=== PATIENT | male | born 1950 | race African-American/Black ===

== ENCOUNTER 2019-05-15 07:09 | Inpatient (IN) | payer OTHER ==
[2019-05-14 09:28] VITALS: BMI 32.1
[2019-05-15] MEDS ORDERED: MIDAZOLAM HCL 2 MG/2 ML SINGLE DOSE VIAL ONE (08:58)
[2019-05-15] MEDS ORDERED: PROPOFOL 20 ML ONE (08:58)
[2019-05-15] MEDS ORDERED: fentaNYL CITRATE 250 MCG/5 ML VIAL ONE (08:58)
[2019-05-15] MEDS ORDERED: ROCURONIUM BROMIDE 50 MG/5 ML SYRINGE ONE ×2 (08:58→10:17)
--- NOTE | 2019-05-15 09:19 | HP ---
History & Physical Update - History History: No Change - Physical Physical: No Change - Assessment Assessment: No Change - Plan Plan: No Change (Consent obtained for laparoscopic assisted right hemicolectomy , for colonic tumoir in ascending colon. Procedure was explained , laparoscopic . possible open , with risks, benefits and complications, including , bleeding , infection , dehiscence of the anastamosis, etc.)
[2019-05-15] MEDS ORDERED: ceFAZolin SODIUM 1 GM VIAL IVPB ONE (09:36)
[2019-05-15] MEDS ORDERED: BUPIVACAINE HCL/PF 0.5% (5 MG/ML) 30 ML VIAL IJ ONE ×3 (09:39→12:57)
[2019-05-15] MEDS ORDERED: BENZOIN TINCTURE SWABSTICK TP ONE (13:03)
[2019-05-15] MEDS ORDERED: NEOSTIGMINE METHYLSULFATE 0.5 MG/1 ML - 10 ML MDV ONE (13:12)
--- NOTE | 2019-05-15 13:29 | OP ---
Operative Note - Note: Operative Date: 05/15/19 Pre-Operative Diagnosis: Tumor in ascending colon. Operation: Laparoscopic assisted right hemicolectomy. Findings: Inked area in ascending colon. Post-Operative Diagnosis: Same as Pre-op Surgeon: Edmund Kilpatrick Anesthesia: General Specimens Removed: Right hemicolectomy, ( removal of terminal ilium , cecum , ascending colon, hepatic flexure , and proximal transverse colon).. Estimated Blood Loss (mls): 10 Operative Report Dictated: Yes
[2019-05-15] MEDS ORDERED: D5-1/3NS+20 MEQ KCL - 20 MEQ/1,000 ML INFUS.BAG IV SCH (13:30)
[2019-05-15] MEDS ORDERED: HYDROmorphone *PCA* 10MG/50ML DISP.SYRIN PCA SCH (13:30)
[2019-05-15] MEDS ORDERED: hydrALAZINE HCL 20 MG/ML VIAL ONE (14:16)
[2019-05-15] MEDS ORDERED: ACETAMINOPHEN INJECTION 100 ML IVPB ONE (14:21)
[2019-05-15] MEDS ORDERED: ONDANSETRON 4 MG/2 ML VIAL IVPUSH PRN (14:24)
[2019-05-15] MEDS ORDERED: LACTATED RINGERS SOLUTION 1,000 ML IV SCH (14:30)
[2019-05-15] MEDS: ACETAMINOPHEN 1000 MG/100 ML VIAL (NON FORMULARY) IVPB ONE (14:42)
[2019-05-15] MEDS: DEXTROSE 5%-1/3 NS - 500 ML with POTASSIUM CHLORIDE 10 MEQ IV SCH ×2 (15:00→23:42)
[2019-05-15] MEDS: HYDROmorphone *PCA* 10MG/50ML DISP.SYRIN PCA SCH (15:25)
[2019-05-15] MEDS ORDERED: 1/3 NS IV SCH (17:15)
[2019-05-15] MEDS ORDERED: 1/3 NORMAL SALINE IVPB SCH (17:15)
[2019-05-15] MEDS ORDERED: POTASSIUM CHLORIDE IV SCH ×2 (17:15)
[2019-05-15] MEDS ORDERED: 1/3 NORMAL SALINE IV SCH (17:15)
[2019-05-15] MEDS ORDERED: POTASSIUM CHLORIDE IVPB SCH (17:15)
[2019-05-15] MEDS ORDERED: DEXTROSE 5% IVPB SCH (17:15)
[2019-05-15] MEDS ORDERED: DEXTROSE 5% IV SCH ×2 (17:15)
[2019-05-15 18:28] LABS: HEMATOCRIT 42.8 % (35.4-49); HEMOGLOBIN 13.6 GM/dL (11.7-16.9); MCH 27.5 pg (25.7-33.7); MCHC 31.8 g/dl (32.0-35.9); MEAN CELL VOLUME 86.4 fl (80-96); MEAN PLT VOLUME 8.7 fl (7.5-11.1); PLATELET COUNT 194 K/MM3 (134-434); RBC 4.95 M/mm3 (4.00-5.60); RDW 14.1 % (11.9-15.9); WHITE BLOOD COUNT 16.8 K/mm3 (4.0-10.0)
[2019-05-15] MEDS ORDERED: ONDANSETRON 4 MG/2 ML VIAL ONE (19:22)
--- NOTE | 2019-05-15 23:03 | OP ---
DATE OF OPERATION: 05/15/2019 PREOPERATIVE DIAGNOSIS: Tumor in the ascending colon. Biopsy suggests adenoma. POSTOPERATIVE DIAGNOSIS: Tumor in the ascending colon. Biopsy suggests adenoma. OPERATIVE PROCEDURE: Laparoscopic-assisted right hemicolectomy (removal of terminal ileum, cecum, ascending colon, hepatic flexure, and proximal 1/3 of the transverse colon). SURGEON: Jagdish Kilpatrick MD CONSTRUCTION ADMINISTRATIVE ASSISTANT: PATRICIA Hughes ANESTHESIA: General anesthesia. OPERATIVE DESCRIPTION: This 68-year-old man who had a screening colonoscopy, which showed a large lesion in the ascending colon suspicious for malignancy; however, biopsy showed an adenoma. The area was inked. Patient had a bowel prep. Procedure was explained to the procedure. Consent obtained. Risks, benefits, and alternatives extensively discussed with the patient. Patient was given general anesthesia, placed in the lithotomy position. The abdomen and upper thigh were painted and draped. Time-out was called. He was given antibiotics preoperatively. Incision was made in the supraumbilical region for about 2 cm, which was deepened inside the skin, subcutaneous tissue, linea alba, and the peritoneum. Two stay sutures of 2-0 Vicryl were obtained, these were in the midline to hold the 10- to 12-mm Bisi trocar into the abdominal wall. After introducing the 10- to 12-mm trocar, the abdomen was insufflated with carbon dioxide at 6 L per minute with a maximum intra-abdominal pressure of 15 mmHg. A 5-mm 30-degree camera was introduced into the abdominal cavity. There were no adhesions in the abdominal cavity. Another 10-mm trocar was inserted in the midline about 3-4 fingerbreadths above the 1st trocar. This was noted in the abdominal cavity under direct vision of the camera. Two 5-mm trocars were then inserted, 1 in the suprapubic area in the midline, another in the right lower quadrant of the abdomen. These were also noted entering the abdominal cavity with the camera. Upon exploring the abdominal cavity, the liver was normal, the gallbladder was normal. There was ink noted in the ascending colon suggesting the location of the tumor. Once this was done, 2 laparoscopic [place] instruments were introduced through the 10-mm port. The cecum was grasped with 1 and the ascending colon with the other, and this was retracted anteriorly and towards the left, thus visualizing the lateral peritoneal deflection of the cecum and the ascending colon. With the camera through the 5-mm port and the 5-mm LigaSure through the other 5-mm port, the lateral peritoneal reflection of the ascending colon was incised around the cecum, terminal ileum, ascending colon, and the hepatic flexure. As this was incised, the right colon was mobilized medially and towards the left. This was done all the way towards the hepatic flexure wherein the 1/3 portion of the duodenum was visualized. The right colon was adequately mobilized, and it was moved all the way to the left of the midline. Then the transverse colon divided in the midline was held towards the anterior abdominal wall using the [place] instrument again. The omentum was then divided at the junction of the medial 1/3 and the middle 1/3 of the transverse colon, all the way from the periphery to the edge of the colon, again using the LigaSure. Once this was completed, the peritoneum medial to the colon, namely the mesentery of the terminal ileum, the cecum, ascending colon, the proximal transverse colon was divided again using the LigaSure, thus demarcating the line of resection. The blood vessels were also mobilized. When this was done, there was adequate mobility to bring the mobilized specimen through the abdomen to the exterior. The supraumbilical incision was then extended to about 4-5 cm, and the terminal ileum, cecum, ascending colon, hepatic flexure, and the transverse colon were exteriorized through the wound including the mesentery. The right flange of the middle colic was then divided at its origin using 2-0 silk sutures. The middle colic vein was also divided at its incision between 2-0 silk LigaSures. The right colic and the terminal branch of the ileocolic was also divided between silk sutures. Once this was done, the terminal ileum was divided for 6-7 cm proximal to the ileocecal valve using the 18-mm BEAU stapling device. Similarly, the transverse colon was also divided between the branches of the mesocolic using the 18-mm BEAU stapling device. Specimen was then removed and sent to Pathology. The terminal ileum was then anastomosed to the distal transverse colon, distal to the hoang in a [id number]-[id number] fashion using again the BEAU stapling device after opening the antimesenteric side of the hoang used to close the resection. Two 3-0 silk sutures were obtained on the antimesenteric side of the small intestine, as well as around the tinea of the transverse colon about 8 cm away from the hoang, to approximate the 2 segments of the bowel for anastomosis. When they were brought together, a BEAU stapling device was introduced through both terminal ileum and the transverse colon around the antimesenteric side and the anastomosis performed using BEAU stapling device. The anastomosis was adequate. The opening of the terminal ileum and the transverse colon was again closed using a new BEAU stapling device. The anastomosis was adequate. The blood supply of the bowel at the site of the anastomosis was also intact. There was active bleeding, and the bowel color was normal. The mesentery of the 2 segments of the bowel had been approximated with continuous 3-0 silk sutures, 3-0 silk sutures were obtained using 0 monofilament sutures of the terminal ileum and the transverse colon to prevent any tension around the staple line. The right hemicolectomy was, thus, completed. The anastomosis was wide, adequate, and of good blood supply. There was to the mesentery. The total estimated blood loss was less than 10 mL. The bowel was then extended to the abdominal cavity, and the abdomen closed with continuous No. 2 looped PDS sutures. The abdomen was then again inflated with carbon dioxide, leaving the 5-mm port in the supraumbilical region as well as the right lower quadrant 5-mm port. The bowel was normal. There was no twist and no adhesions to the anterior abdominal wall. The omentum was then pulled back and placed over the small intestine against the abdominal wall. The instruments were removed under direct vision, and the 5-mm ports were then closed buried, interrupted 4-0 Biosyn sutures. The subcutaneous tissue of the abdominal incision was also approximated with buried, interrupted 4-0 Biosyn sutures. Dermabond and 5-mm adhesive was placed across the incision. Patient tolerated the procedure well, was extubated, and sent to the recovery room in satisfactory and stable condition. Small dressing was placed over the 10-mm port. Alexandru [id number] cc: Laureen Olea MD
[2019-05-16] MEDS: DEXTROSE 5%-1/3 NS - 500 ML with POTASSIUM CHLORIDE 10 MEQ IV SCH ×2 (06:42→11:04)
[2019-05-16] MEDS: ACETAMINOPHEN 1000 MG/100 ML VIAL (NON FORMULARY) IVPB ONE (08:29)
[2019-05-16 08:34] LABS: BASO % 0.3 % (0-2.0); EOS % 0.4 % (0-4.5); HEMATOCRIT 37.9 % (35.4-49); HEMOGLOBIN 12.3 GM/dL (11.7-16.9); LYMPH % 8.9 % (8-40); MCH 27.6 pg (25.7-33.7); MCHC 32.3 g/dl (32.0-35.9); MEAN CELL VOLUME 85.4 fl (80-96); MEAN PLT VOLUME 8.8 fl (7.5-11.1); MONO % 11.2 % (3.8-10.2); NEUT % 79.2 % (42.8-82.8); PLATELET COUNT 170 K/MM3 (134-434); RBC 4.44 M/mm3 (4.00-5.60); WHITE BLOOD COUNT 13.4 K/mm3 (4.0-10.0)
[2019-05-16 09:18] LABS: BLOOD UREA NITROGEN 18.1 mg/dL (7-18); CALCIUM 9.9 mg/dL (8.5-10.1); CREATININE 1.3 mg/dL (0.55-1.3); POTASSIUM 4.7 mmol/L (3.5-5.1)
--- NOTE | 2019-05-16 11:26 | CONSULT ---
Consult Consult Specialty:: INTERNAL MEDICINE Reason for Consultation:: Hypertension - History of Present Illness Chief Complaint: colon mass History of Present Illness: 68 yrs old male with PMH of HTN , prediabetes, paroxysmal Afib, BPH, arthritis, hyperlipidemia, hypothyroidism found to have ascending colon mass - 6 cm , biopsy showed adenoma. He underwent right hemicolectomy yesterday be Dr Kilpatrick. Pt feels well. POD #1 No bm , no flatus,no abd pain -- pain controlled by WIRE BRUSHER pump No SOB - History Source History Provided By: Patient Limitations to Obtaining History: No Limitations - Past Medical History Cardio/Vascular: Yes: AFIB (paroxysmal not on AC ), HTN, Hyperlipdemia Renal/: Yes: BPH - Past Surgical History Past Surgical History: Yes: Cataract Removal, TURP - Alcohol/Substance Use Hx Alcohol Use: No - Smoking History Smoking history: Never smoked Have you smoked in the past 12 months: No Home Medications - Allergies Allergies/Adverse Reactions: Allergies Allergy/AdvReac Type Severity Reaction Status Date / Time No Known Drug Allergies Allergy Verified 05/15/19 08:16 - Home Medications Home Medications: Ambulatory Orders Amlodipine Besylate [Norvasc -] 10 mg PO DAILY 10/06/12 Levothyroxine [Synthroid -] 125 mcg PO DAILY 10/06/12 Metoprolol Succinate [Toprol XL -] 50 mg PO DAILY 10/06/12 Hydrochlorothiazide [Hctz -] 25 mg PO DAILY 05/14/19 Losartan Potassium 100 mg PO DAILY 05/15/19 Review of Systems - Review of Systems Constitutional: denies: Chills, Fever Cardiovascular: denies: Chest Pain Respiratory: denies: Cough, SOB, Wheezing Gastrointestinal: denies: Abdominal Pain, Diarrhea, Indigestion, Nausea Physical Exam Vital Signs: Vital Signs Temperature 98.2 F 05/16/19 09:59 Pulse Rate 69 05/16/19 09:59 Respiratory Rate 20 05/16/19 09:59 Blood Pressure 130/61 05/16/19 09:59 O2 Sat by Pulse Oximetry (%) 98 05/16/19 00:25 Constitutional: Yes: No Distress, Calm Cardiovascular: Yes: Regular Rate and Rhythm. No: JVD Respiratory: Yes: Other (fine crackles left >right) Gastrointestinal: Yes: Soft, Abdomen, Obese, Other (dressing +). No: Normal Bowel Sounds, Tenderness Edema: No Neurological: Yes: WNL Psychiatric: Yes: Alert, Oriented Labs: CBC, BMP 05/16/19 07:33 05/16/19 08:00 Imaging - Results X-ray: Report Reviewed EKG: Report Reviewed, Image Reviewed (pre op EKG) Problem List - Problems (1) Colonic mass Code(s): K63.89 - OTHER SPECIFIED DISEASES OF INTESTINE (2) Status post right hemicolectomy Code(s): Z90.49 - ACQUIRED ABSENCE OF OTHER SPECIFIED PARTS OF DIGESTIVE TRACT (3) HTN (hypertension) Code(s): I10 - ESSENTIAL (PRIMARY) HYPERTENSION (4) Hypothyroidism Code(s): E03.9 - HYPOTHYROIDISM, UNSPECIFIED (5) Hyperlipidemia Code(s): E78.5 - HYPERLIPIDEMIA, UNSPECIFIED Assessment/Plan PLAN will decrease iv fluids -->crackles on exam--> check CXR OOB daily Pain control Keep NPO restart HTN meds with sips of water WBC decreased follow up on biopsy Heparin sc for DVT prophylaxis discussed with Dr Kilpatrick
[2019-05-16] MEDS ORDERED: DEXTROSE 5%-1/3 NS - 500 ML with POTASSIUM CHLORIDE 10 MEQ IV SCH (11:35)
--- NOTE | 2019-05-16 11:35 | PN ---
Progress Note, Physician - Current Medication List Current Medications: Active Medications Diphenhydramine HCl (Benadryl Injection -) 12.5 mg IVPUSH ONCE PRN PRN Reason: FOR ITCHING Fentanyl (Sublimaze Injection -) 50 mcg IVPUSH [id number] PRN PRN Reason: PAIN-PACU ORDER X 4 DOSES ONLY Last Admin: 05/15/19 14:40 Dose: 50 mcg Hydromorphone HCl (Hydromorphone 10 Mg/50 Ml-Ns) 10 mg FIXED WING PILOT FIXED WING PILOT DOLORES; Protocol Stop: 05/22/19 14:59 Last Admin: 05/15/19 15:25 Dose: 10 mg Potassium Chloride 10 meq/ (Dextrose/Sodium Chloride) 505 mls @ 83 mls/hr IV Q6H [facility] Last Admin: 05/16/19 11:04 Dose: Not Given Ondansetron HCl (Zofran Injection) 4 mg IVPUSH Q6H PRN PRN Reason: NAUSEA AND/OR VOMITING Ondansetron HCl (Zofran Injection) 4 mg IVPUSH Q4H PRN PRN Reason: NAUSEA AND/OR VOMITING Promethazine HCl (Phenergan Injection -) 12.5 mg IVPB Q6H PRN PRN Reason: NAUSEA AND/OR VOMITING - Objective Vital Signs: Vital Signs Temperature 98.2 F 05/16/19 09:59 Pulse Rate 69 05/16/19 09:59 Respiratory Rate 20 05/16/19 09:59 Blood Pressure 130/61 05/16/19 09:59 O2 Sat by Pulse Oximetry (%) 98 05/16/19 00:25 Labs: CBC, BMP 05/16/19 07:33 05/16/19 08:00 Assessment/Plan PO day #1 He is alert and oriented. He is informed of the surgical procedure and gross findings on the ascending colon. Final pathology after histology. Abdomen is soft, not tender. Extremities: No calf tenderness. DVT prohylaxis. Out of bed , ambulating.
[2019-05-16] MEDS: HEPARIN NA (PORCINE) 5,000 UNITS/ML 1ML VIAL SQ SCH ×2 (12:05→21:47)
[2019-05-16] MEDS: D5-1/2NS+20 MEQ KCL - 20 MEQ/1,000 ML INFUS.BAG IV SCH (12:05)
[2019-05-16] MEDS: HYDROmorphone *PCA* 10MG/50ML DISP.SYRIN PCA SCH (15:49)
--- NOTE | 2019-05-17 09:09 | PN ---
Progress Note (short form) - Note Progress Note: had low grade fever today no distress no bm or flatus no nausea Vital Signs - 24 hr 05/16/19 05/17/19 05/17/19 20:46 06:00 08:30 Temperature 99.0 F 100.1 F H 100.6 F H Pulse Rate 71 80 86 Respiratory 20 20 20 Rate Blood Pressure 141/72 136/70 143/83 O2 Sat by Pulse Oximetry (%) 05/17/19 05/17/19 05/17/19 09:00 10:00 10:54 Temperature 99.7 F H Pulse Rate 100 H Respiratory 20 Rate Blood Pressure 143/83 O2 Sat by Pulse 99 99 Oximetry (%) 05/17/19 14:00 Temperature 98.9 F Pulse Rate 82 Respiratory 20 Rate Blood Pressure 131/77 O2 Sat by Pulse 99 Oximetry (%) Current Medications Generic Name Dose Route Start Last Admin Trade Name Freq PRN Reason Stop Dose Admin Acetaminophen 1,000 mg 05/17/19 09:08 05/17/19 09:29 Ofirmev Injection - IVPB 1,000 mg Q6H PRN Administration PAIN LEVEL 6-10 OR FEVER Diphenhydramine HCl 12.5 mg 05/15/19 14:58 Benadryl Injection - IVPUSH ONCE PRN FOR ITCHING Fentanyl 50 mcg 05/15/19 14:24 05/15/19 14:40 Sublimaze Injection - IVPUSH 50 mcg [id number] PRN Administration PAIN-PACU ORDER X 4 DOSES ONLY Heparin Sodium (Porcine) 5,000 unit 05/16/19 11:45 05/17/19 09:28 Heparin - SQ 5,000 unit BID DOLORES Administration Hydromorphone HCl 10 mg 05/15/19 15:00 05/17/19 16:09 Hydromorphone 10 Mg/50 Ml-Ns WASH OIL COOLER OPERATOR 05/22/19 14:59 10 mg WASH OIL COOLER OPERATOR DOLORES Administration Protocol Potassium Chloride/Dextrose/Sod Cl 20 meq in 1,000 mls @ 60 mls/hr 05/16/19 11 :45 05/17/19 12:30 D5-1/2ns+20 Meq Kcl - IV Not Given ASDIR DOLORES Levothyroxine Sodium 125 mcg 05/17/19 09:15 05/17/19 09:31 Synthroid - PO 125 mcg DAILY@0700 [facility] Administration Metoprolol Succinate 50 mg 05/17/19 10:00 05/17/19 09:28 Toprol Xl - PO 50 mg DAILY [facility] Administration Ondansetron HCl 4 mg 05/15/19 14:24 Zofran Injection IVPUSH Q6H PRN NAUSEA AND/OR VOMITING Ondansetron HCl 4 mg 05/15/19 14:58 Zofran Injection IVPUSH Q4H PRN NAUSEA AND/OR VOMITING Promethazine HCl 12.5 mg 05/15/19 14:58 Phenergan Injection - IVPB Q6H PRN NAUSEA AND/OR VOMITING Laboratory Results - last 24 hr 05/17/19 05/17/19 05/17/19 10:47 10:47 11:40 WBC 10.9 H RBC 4.31 Hgb 12.0 Hct 36.6 MCV 84.8 MCH 27.8 MCHC 32.9 RDW 14.0 Plt Count 163 MPV 9.2 Absolute Neuts (auto) 8.6 H Neutrophils % 78.9 Lymphocytes % 6.6 L D Monocytes % 13.7 H Eosinophils % 0.3 Basophils % 0.5 Nucleated RBC % 0 Sodium 140 Potassium 4.3 Chloride 104 Carbon Dioxide 30 Anion Gap 6 L BUN 14.5 Creatinine 1.2 Est GFR (CKD-EPI)AfAm 72.09 Est GFR (CKD-EPI)NonAf 62.20 Random Glucose 85 Calcium 9.6 Total Bilirubin 0.8 AST 23 ALT 16 Alkaline Phosphatase 87 Total Protein 6.7 Albumin 3.0 L Urine Color [place] Urine Appearance Clear Urine pH 5.0 Ur Specific [place] 1.025 Urine Protein 1+ H Urine Glucose (UA) Negative Urine Ketones 1+ H Urine Blood Negative Urine Nitrite Negative Urine Bilirubin Negative Urine Urobilinogen 0.2 Ur Leukocyte Esterase Negative Urine WBC (Auto) 1 Urine Casts (Auto) 6 U Epithel Cells (Auto) 1.0 Urine Bacteria (Auto) 0.3 S1 S2 RRR Lungs decreased crackles ABd- soft, NT, ND, No BS No edema PLANkeep NPO IV fluids CXR -- no infiltrates CBC --wbc trending down -- labs noted check cultures received post op antibiotics will monitor fever for now, if worse, restart antibiotics Problem List - Problems (1) Colonic mass Code(s): K63.89 - OTHER SPECIFIED DISEASES OF INTESTINE (2) Status post right hemicolectomy Code(s): Z90.49 - ACQUIRED ABSENCE OF OTHER SPECIFIED PARTS OF DIGESTIVE TRACT (3) HTN (hypertension) Code(s): I10 - ESSENTIAL (PRIMARY) HYPERTENSION (4) Hypothyroidism Code(s): E03.9 - HYPOTHYROIDISM, UNSPECIFIED (5) Hyperlipidemia Code(s): E78.5 - HYPERLIPIDEMIA, UNSPECIFIED
[2019-05-17] MEDS: HEPARIN NA (PORCINE) 5,000 UNITS/ML 1ML VIAL SQ SCH ×2 (09:28→21:28)
[2019-05-17] MEDS: ACETAMINOPHEN 1000 MG/100 ML VIAL (NON FORMULARY) IVPB PRN ×2 (09:29→20:13)
[2019-05-17] MEDS: LEVOTHYROXINE NA 125 MCG TABLET (FP) PO SCH (09:31)
[2019-05-17 11:53] LABS: BASO % 0.5 % (0-2.0); EOS % 0.3 % (0-4.5); HEMATOCRIT 36.6 % (35.4-49); LYMPH % 6.6 % (8-40); MCH 27.8 pg (25.7-33.7); MCHC 32.9 g/dl (32.0-35.9); MEAN CELL VOLUME 84.8 fl (80-96); MEAN PLT VOLUME 9.2 fl (7.5-11.1); MONO % 13.7 % (3.8-10.2); NEUT % 78.9 % (42.8-82.8); PLATELET COUNT 163 K/MM3 (134-434); RBC 4.31 M/mm3 (4.00-5.60); WHITE BLOOD COUNT 10.9 K/mm3 (4.0-10.0)
[2019-05-17 12:10] LABS: BILIRUBIN,TOTAL 0.8 mg/dL (0.2-1); BLOOD UREA NITROGEN 14.5 mg/dL (7-18); CALCIUM 9.6 mg/dL (8.5-10.1); CREATININE 1.2 mg/dL (0.55-1.3); POTASSIUM 4.3 mmol/L (3.5-5.1); TOT PROT 6.7 g/dl (6.4-8.2)
[2019-05-17 12:12] LABS: HYALINE CASTS 6 /lpf (0-8); URINE APPEARANCE CLEAR; URINE BACTERIA 0.3 /hpf (NEGATIVE); URINE BILIRUBIN NEGATIVE (NEGATIVE); URINE COLOR ORANGE; URINE GLUCOSE (UA) NEGATIVE (NEGATIVE); URINE KETONE 1+ (NEGATIVE); URINE LEUK ESTERASE NEGATIVE (NEGATIVE); URINE NITRITE NEGATIVE (NEGATIVE); URINE PROTEIN 1+ (NEGATIVE); URINE UROBILINOGEN 0.2 mg/dL (0.2-1.0); URINE WBC 1 /hpf (0-5)
[2019-05-17] MEDS: D5-1/2NS+20 MEQ KCL - 20 MEQ/1,000 ML INFUS.BAG IV SCH ×2 (12:30→18:28)
--- NOTE | 2019-05-17 15:57 | PN ---
Progress Note, Physician - Current Medication List Current Medications: Active Medications Acetaminophen (Ofirmev Injection -) 1,000 mg IVPB Q6H PRN PRN Reason: PAIN LEVEL 6-10 OR FEVER Last Admin: 05/17/19 09:29 Dose: 1,000 mg Diphenhydramine HCl (Benadryl Injection -) 12.5 mg IVPUSH ONCE PRN PRN Reason: FOR ITCHING Fentanyl (Sublimaze Injection -) 50 mcg IVPUSH [id number] PRN PRN Reason: PAIN-PACU ORDER X 4 DOSES ONLY Last Admin: 05/15/19 14:40 Dose: 50 mcg Heparin Sodium (Porcine) (Heparin -) 5,000 unit SQ BID [facility] Last Admin: 05/17/19 09:28 Dose: 5,000 unit Hydromorphone HCl (Hydromorphone 10 Mg/50 Ml-Ns) 10 mg SCHOOL INSPECTOR SCHOOL INSPECTOR [facility]; Protocol Stop: 05/22/19 14:59 Last Admin: 05/16/19 15:49 Dose: 10 mg Potassium Chloride/Dextrose/Sod Cl (D5-1/2ns+20 Meq Kcl -) 20 meq in 1,000 mls @ 60 mls/hr IV ASDIR [facility] Last Admin: 05/16/19 12:05 Dose: 60 mls/hr Levothyroxine Sodium (Synthroid -) 125 mcg PO DAILY@0700 [facility] Last Admin: 05/17/19 09:31 Dose: 125 mcg Metoprolol Succinate (Toprol Xl -) 50 mg PO DAILY [facility] Last Admin: 05/17/19 09:28 Dose: 50 mg Ondansetron HCl (Zofran Injection) 4 mg IVPUSH Q6H PRN PRN Reason: NAUSEA AND/OR VOMITING Ondansetron HCl (Zofran Injection) 4 mg IVPUSH Q4H PRN PRN Reason: NAUSEA AND/OR VOMITING Promethazine HCl (Phenergan Injection -) 12.5 mg IVPB Q6H PRN PRN Reason: NAUSEA AND/OR VOMITING - Objective Vital Signs: Vital Signs Temperature 98.9 F 05/17/19 14:00 Pulse Rate 82 05/17/19 14:00 Respiratory Rate 20 05/17/19 14:00 Blood Pressure 131/77 05/17/19 14:00 O2 Sat by Pulse Oximetry (%) 99 05/17/19 09:00 Labs: CBC, BMP 05/17/19 10:47 05/17/19 10:47 Assessment/Plan Surgery: Post op Day #2. Had low grade temp, 100.4. Abdomen is soft, WBC is normal. Normal chest X-ray. Continue current management, keep NPO. Ambulate.
[2019-05-17] MEDS: HYDROmorphone *PCA* 10MG/50ML DISP.SYRIN PCA SCH (16:09)
[2019-05-17] MEDS: ONDANSETRON 4 MG/2 ML VIAL IVPUSH PRN ×2 (18:32→23:43)
[2019-05-18] MEDS: ONDANSETRON 4 MG/2 ML VIAL IVPUSH PRN (06:23)
[2019-05-18] MEDS: LEVOTHYROXINE NA 125 MCG TABLET (FP) PO SCH (06:23)
--- NOTE | 2019-05-18 09:56 | PN ---
Progress Note (short form) - Note Progress Note: pt seen/ examined chart reviewed awake/comfortable wants to eat pain ok low grade fever Vital Signs Temp 99.7 F H 05/18/19 06:00 Pulse 80 05/18/19 08:09 Resp 20 05/18/19 08:09 BP 125/70 05/18/19 08:09 Pulse Ox 98 05/17/19 21:00 Intake & Output 05/17/19 05/17/19 05/18/19 11:59 23:59 11:59 Intake Total 900 1020 520 Output Total 520 800 400 Balance 380 220 120 Intake: IV 900 1020 420 D5-1/2NS+20 MEQ KCL - 20 900 1020 420 meq In 1,000 ml @ 60 mls/ hr IV ASDIR DOLORES Rx#: [id number] IVPB 100 Output: Urine 520 800 400 Void 520 800 400 Other: Voiding Method Urinal Urinal Bowel Movement No Active Medications Acetaminophen (Ofirmev Injection -) 1,000 mg IVPB Q6H PRN PRN Reason: PAIN LEVEL 6-10 OR FEVER Last Admin: 05/17/19 20:13 Dose: 1,000 mg Diphenhydramine HCl (Benadryl Injection -) 12.5 mg IVPUSH ONCE PRN PRN Reason: FOR ITCHING Fentanyl (Sublimaze Injection -) 50 mcg IVPUSH [id number] PRN PRN Reason: PAIN-PACU ORDER X 4 DOSES ONLY Last Admin: 05/15/19 14:40 Dose: 50 mcg Heparin Sodium (Porcine) (Heparin -) 5,000 unit SQ BID [facility] Last Admin: 05/17/19 21:28 Dose: 5,000 unit Hydromorphone HCl (Hydromorphone 10 Mg/50 Ml-Ns) 10 mg FINANCIAL CONSULTANT FINANCIAL CONSULTANT [facility]; Protocol Stop: 05/22/19 14:59 Last Admin: 05/17/19 16:09 Dose: 10 mg Potassium Chloride/Dextrose/Sod Cl (D5-1/2ns+20 Meq Kcl -) 20 meq in 1,000 mls @ 60 mls/hr IV ASDIR DOLORES Last Admin: 05/17/19 18:28 Dose: 60 mls/hr Levothyroxine Sodium (Synthroid -) 125 mcg PO DAILY@0700 [facility] Last Admin: 05/18/19 06:23 Dose: 125 mcg Metoprolol Succinate (Toprol Xl -) 50 mg PO DAILY [facility] Last Admin: 05/17/19 09:28 Dose: 50 mg Ondansetron HCl (Zofran Injection) 4 mg IVPUSH Q6H PRN PRN Reason: NAUSEA AND/OR VOMITING Ondansetron HCl (Zofran Injection) 4 mg IVPUSH Q4H PRN PRN Reason: NAUSEA AND/OR VOMITING Last Admin: 05/18/19 06:23 Dose: 4 mg Promethazine HCl (Phenergan Injection -) 12.5 mg IVPB Q6H PRN PRN Reason: NAUSEA AND/OR VOMITING CBC, BMP 05/17/19 10:47 05/17/19 10:47 Labs - today-- Ordered Physical Exam S1 S2 RRR Lungs decreased crackles ABd- soft, quiet No edema PLAN keep NPO till surgery clears IV fluids post op fever-monitor -- labs -- ordered --cultures--- -ve so far received post op antibiotics will monitor fever for now, if worse, restart antibiotics will follow oob - chair not passing gas yet-- Problem List - Problems (1) Colonic mass Code(s): K63.89 - OTHER SPECIFIED DISEASES OF INTESTINE (2) Status post right hemicolectomy Code(s): Z90.49 - ACQUIRED ABSENCE OF OTHER SPECIFIED PARTS OF DIGESTIVE TRACT (3) HTN (hypertension) Code(s): I10 - ESSENTIAL (PRIMARY) HYPERTENSION (4) Hypothyroidism Code(s): E03.9 - HYPOTHYROIDISM, UNSPECIFIED (5) Hyperlipidemia Code(s): E78.5 - HYPERLIPIDEMIA, UNSPECIFIED
[2019-05-18] MEDS ORDERED: HYDROmorphone HCl 2 MG/ML VIAL IM PRN (10:56)
--- NOTE | 2019-05-18 10:56 | PN ---
Progress Note, Physician Chief Complaint: C/O Vomiting twice small amount of greenish material. Denies any nausea. Denies any abdominal pain, discomfort. Abdomen is soft , not tender. Has not passed flatus. Wound is clean - Current Medication List Current Medications: Active Medications Acetaminophen (Ofirmev Injection -) 1,000 mg IVPB Q6H PRN PRN Reason: PAIN LEVEL 6-10 OR FEVER Last Admin: 05/17/19 20:13 Dose: 1,000 mg Diphenhydramine HCl (Benadryl Injection -) 12.5 mg IVPUSH ONCE PRN PRN Reason: FOR ITCHING Fentanyl (Sublimaze Injection -) 50 mcg IVPUSH [id number] PRN PRN Reason: PAIN-PACU ORDER X 4 DOSES ONLY Last Admin: 05/15/19 14:40 Dose: 50 mcg Heparin Sodium (Porcine) (Heparin -) 5,000 unit SQ BID [facility] Last Admin: 05/17/19 21:28 Dose: 5,000 unit Hydromorphone HCl (Hydromorphone 10 Mg/50 Ml-Ns) 10 mg DEICER INSPECTOR PNEUMATIC DEICER INSPECTOR PNEUMATIC [facility]; Protocol Stop: 05/22/19 14:59 Last Admin: 05/17/19 16:09 Dose: 10 mg Potassium Chloride/Dextrose/Sod Cl (D5-1/2ns+20 Meq Kcl -) 20 meq in 1,000 mls @ 60 mls/hr IV ASDIR [facility] Last Admin: 05/17/19 18:28 Dose: 60 mls/hr Levothyroxine Sodium (Synthroid -) 125 mcg PO DAILY@0700 [facility] Last Admin: 05/18/19 06:23 Dose: 125 mcg Metoprolol Succinate (Toprol Xl -) 50 mg PO DAILY [facility] Last Admin: 05/17/19 09:28 Dose: 50 mg Ondansetron HCl (Zofran Injection) 4 mg IVPUSH Q6H PRN PRN Reason: NAUSEA AND/OR VOMITING Ondansetron HCl (Zofran Injection) 4 mg IVPUSH Q4H PRN PRN Reason: NAUSEA AND/OR VOMITING Last Admin: 05/18/19 06:23 Dose: 4 mg Promethazine HCl (Phenergan Injection -) 12.5 mg IVPB Q6H PRN PRN Reason: NAUSEA AND/OR VOMITING - Objective Vital Signs: Vital Signs Temperature 99.7 F H 05/18/19 06:00 Pulse Rate 80 05/18/19 08:09 Respiratory Rate 20 05/18/19 08:09 Blood Pressure 125/70 05/18/19 08:09 O2 Sat by Pulse Oximetry (%) 98 05/17/19 21:00 Labs: CBC, BMP 05/17/19 10:47 05/17/19 10:47 Assessment/Plan Ronald normal, WBC is normal. Will D/C DEICER INSPECTOR PNEUMATIC . Obtain abdominal X-ray. Do not suspect any intraabdominal issues. Hold feeding. Ambulate.
[2019-05-18 11:17] LABS: BASO % 0.9 % (0-2.0); HEMATOCRIT 37.6 % (35.4-49); HEMOGLOBIN 12.6 GM/dL (11.7-16.9); LYMPH % 4.9 % (8-40); MCH 27.9 pg (25.7-33.7); MCHC 33.4 g/dl (32.0-35.9); MEAN CELL VOLUME 83.6 fl (80-96); MEAN PLT VOLUME 8.6 fl (7.5-11.1); MONO % 12.1 % (3.8-10.2); NEUT % 82.1 % (42.8-82.8); PLATELET COUNT 183 K/MM3 (134-434); RDW 14.3 % (11.9-15.9); WHITE BLOOD COUNT 15.8 K/mm3 (4.0-10.0)
[2019-05-18] MEDS: HEPARIN NA (PORCINE) 5,000 UNITS/ML 1ML VIAL SQ SCH ×2 (11:28→21:14)
[2019-05-18 11:52] LABS: BILIRUBIN,TOTAL 0.8 mg/dL (0.2-1); BLOOD UREA NITROGEN 18.3 mg/dL (7-18); CALCIUM 9.9 mg/dL (8.5-10.1); CREATININE 1.3 mg/dL (0.55-1.3); POTASSIUM 4.2 mmol/L (3.5-5.1); TOT PROT 7.1 g/dl (6.4-8.2)
[2019-05-18] MEDS: D5-1/2NS+20 MEQ KCL - 20 MEQ/1,000 ML INFUS.BAG IV SCH (17:27)
[2019-05-19] MEDS: LEVOTHYROXINE NA 125 MCG TABLET (FP) PO SCH (06:02)
[2019-05-19 07:44] LABS: ALBUMIN 2.8 g/dl (3.4-5.0); BILIRUBIN,TOTAL 0.8 mg/dL (0.2-1); BLOOD UREA NITROGEN 25.6 mg/dL (7-18); CALCIUM 9.8 mg/dL (8.5-10.1); CREATININE 1.4 mg/dL (0.55-1.3); POTASSIUM 4.2 mmol/L (3.5-5.1); TOT PROT 6.9 g/dl (6.4-8.2)
[2019-05-19 08:07] LABS: BASO % 0.3 % (0-2.0); EOS % 0.1 % (0-4.5); HEMOGLOBIN 12.3 GM/dL (11.7-16.9); LYMPH % 5.2 % (8-40); MCHC 33.4 g/dl (32.0-35.9); MEAN CELL VOLUME 83.9 fl (80-96); MEAN PLT VOLUME 9.5 fl (7.5-11.1); MONO % 12.7 % (3.8-10.2); NEUT % 81.7 % (42.8-82.8); PLATELET COUNT 190 K/MM3 (134-434); RBC 4.41 M/mm3 (4.00-5.60); WHITE BLOOD COUNT 15.7 K/mm3 (4.0-10.0)
[2019-05-19] MEDS: HEPARIN NA (PORCINE) 5,000 UNITS/ML 1ML VIAL SQ SCH ×2 (09:15→22:21)
[2019-05-19] MEDS: D5-1/2NS+20 MEQ KCL - 20 MEQ/1,000 ML INFUS.BAG IV SCH (10:52)
--- NOTE | 2019-05-19 11:21 | PN ---
Progress Note (short form) - Note Progress Note: had low grade fever today no distress had bloody bm yesterday Unable to walk now no c/o pain Vital Signs - 24 hr 05/18/19 05/19/19 05/19/19 17:27 02:53 06:46 Temperature 100.1 F H 100.5 F H 98.9 F Pulse Rate 82 76 75 Respiratory 20 20 20 Rate Blood Pressure 137/77 144/80 05/19/19 05/19/19 09:00 10:46 Temperature 98.5 F Pulse Rate 84 Respiratory 20 20 Rate Blood Pressure 144/86 Current Medications Generic Name Dose Route Start Last Admin Trade Name Freq PRN Reason Stop Dose Admin Acetaminophen 1,000 mg 05/17/19 09:08 05/17/19 20:13 Ofirmev Injection - IVPB 1,000 mg Q6H PRN Administration PAIN LEVEL 1-5 OR FEVER Diphenhydramine HCl 12.5 mg 05/15/19 14:58 Benadryl Injection - IVPUSH ONCE PRN FOR ITCHING Fentanyl 50 mcg 05/15/19 14:24 05/15/19 14:40 Sublimaze Injection - IVPUSH 50 mcg [id number] PRN Administration PAIN-PACU ORDER X 4 DOSES ONLY Heparin Sodium (Porcine) 5,000 unit 05/16/19 11:45 05/19/19 09:15 Heparin - SQ 5,000 unit BID D[facility]ES Administration Hydromorphone HCl 2 mg 05/18/19 10:56 Dilaudid Vial - IM Q8H PRN PAIN LEVEL 6-10 Sodium Chloride 1,000 mls @ 83 mls/hr 05/19/19 12:00 1/2 Normal Saline IV ASDIR DOLORES Levothyroxine Sodium 125 mcg 05/17/19 09:15 05/19/19 06:02 Synthroid - PO 125 mcg DAILY@0700 D[facility] Administration Metoprolol Succinate 50 mg 05/17/19 10:00 05/19/19 09:15 Toprol Xl - PO 50 mg DAILY D[facility]ES Administration Ondansetron HCl 4 mg 05/15/19 14:24 05/19/19 06:26 Zofran Injection IVPUSH 4 mg Q6H PRN Administration NAUSEA AND/OR VOMITING Ondansetron HCl 4 mg 05/15/19 14:58 05/18/19 06:23 Zofran Injection IVPUSH 4 mg Q4H PRN Administration NAUSEA AND/OR VOMITING Promethazine HCl 12.5 mg 05/15/19 14:58 Phenergan Injection - IVPB Q6H PRN NAUSEA AND/OR VOMITING Laboratory Results - last 24 hr 05/19/19 05/19/19 06:38 06:38 WBC 15.7 H RBC 4.41 Hgb 12.3 Hct 37.0 MCV 83.9 MCH 28.0 MCHC 33.4 RDW 14.0 Plt Count 190 MPV 9.5 D Absolute Neuts (auto) 12.8 H Neutrophils % 81.7 Lymphocytes % 5.2 L Monocytes % 12.7 H Eosinophils % 0.1 D Basophils % 0.3 Nucleated RBC % 0 Sodium 138 Potassium 4.2 Chloride 102 Carbon Dioxide 24 Anion Gap 13 BUN 25.6 H Creatinine 1.4 H Est GFR (CKD-EPI)AfAm 59.83 Est GFR (CKD-EPI)NonAf 51.62 Random Glucose 125 H Calcium 9.8 Total Bilirubin 0.8 AST 19 ALT 18 Alkaline Phosphatase 82 Total Protein 6.9 Albumin 2.8 L S1 S2 RRR Lungs decreased crackles ABd- soft, NT, mild distended, BS+ trace edema tender B/l knees restricted movements of B/l legs, B/L knees both knees are warm PLAN full liquids IV fluids CXR -- no infiltrates CBC --wbc elevated temps-- low grade fever -- labs noted check cultures-->negative-> can it be due to inflammatory process? dc Levaquin Ortho and neuro eval check knees xrays and abd xrays Problem List - Problems (1) Colonic mass Code(s): K63.89 - OTHER SPECIFIED DISEASES OF INTESTINE (2) Status post right hemicolectomy Code(s): Z90.49 - ACQUIRED ABSENCE OF OTHER SPECIFIED PARTS OF DIGESTIVE TRACT (3) HTN (hypertension) Code(s): I10 - ESSENTIAL (PRIMARY) HYPERTENSION (4) Hypothyroidism Code(s): E03.9 - HYPOTHYROIDISM, UNSPECIFIED (5) Hyperlipidemia Code(s): E78.5 - HYPERLIPIDEMIA, UNSPECIFIED
--- NOTE | 2019-05-19 12:17 | PN ---
Progress Note, Physician - Current Medication List Current Medications: Active Medications Acetaminophen (Ofirmev Injection -) 1,000 mg IVPB Q6H PRN PRN Reason: PAIN LEVEL 1-5 OR FEVER Last Admin: 05/17/19 20:13 Dose: 1,000 mg Diphenhydramine HCl (Benadryl Injection -) 12.5 mg IVPUSH ONCE PRN PRN Reason: FOR ITCHING Fentanyl (Sublimaze Injection -) 50 mcg IVPUSH [id number] PRN PRN Reason: PAIN-PACU ORDER X 4 DOSES ONLY Last Admin: 05/15/19 14:40 Dose: 50 mcg Heparin Sodium (Porcine) (Heparin -) 5,000 unit SQ BID [facility] Last Admin: 05/19/19 09:15 Dose: 5,000 unit Hydromorphone HCl (Dilaudid Vial -) 2 mg IM Q8H PRN PRN Reason: PAIN LEVEL 6-10 Sodium Chloride (1/2 Normal Saline) 1,000 mls @ 83 mls/hr IV ASDIR [facility] Levothyroxine Sodium (Synthroid -) 125 mcg PO DAILY@0700 [facility] Last Admin: 05/19/19 06:02 Dose: 125 mcg Metoprolol Succinate (Toprol Xl -) 50 mg PO DAILY [facility] Last Admin: 05/19/19 09:15 Dose: 50 mg Ondansetron HCl (Zofran Injection) 4 mg IVPUSH Q6H PRN PRN Reason: NAUSEA AND/OR VOMITING Last Admin: 05/19/19 06:26 Dose: 4 mg Ondansetron HCl (Zofran Injection) 4 mg IVPUSH Q4H PRN PRN Reason: NAUSEA AND/OR VOMITING Last Admin: 05/18/19 06:23 Dose: 4 mg Promethazine HCl (Phenergan Injection -) 12.5 mg IVPB Q6H PRN PRN Reason: NAUSEA AND/OR VOMITING - Objective Vital Signs: Vital Signs Temperature 98.5 F 05/19/19 10:46 Pulse Rate 84 05/19/19 10:46 Respiratory Rate 20 05/19/19 10:46 Blood Pressure 144/86 05/19/19 10:46 O2 Sat by Pulse Oximetry (%) 98 05/17/19 21:00 Labs: CBC, BMP 05/19/19 06:38 05/19/19 06:38 Assessment/Plan Surgery: Patient is sitting in chair, wants to eat. C/O pain in his left knee/ , posteriorly. Afebrile, wbc elevated 92288. Abdomen is soft , not tender. He has had bowel movement. Wound is clean. Will resume oral feeding. He is unable to lift his legs off the ground, left more than right . Has/o arthritis of both knees, has some pain in both knees. Problem : 1)s/p right hemicolectomy, no intraabdominal issues. 2) unable to extend the knees , left more than right , / etiology. No calf tenderness , no swelling of the legs. ? secondary to arthritis vs neurological. However patient is awake alert and has some movement of both legs. discussed with Dr. Jeanna Zuluaga and the floor nurse. Will obtain orthopedic and neurological consultation. Resume oral feeding with full liquids. 3) leucocytosis, Chest clear , no sign of intraabdominal sepsis.
--- NOTE | 2019-05-19 12:53 | PATH ---
Surgical Pathology Report Patient Name: VU MARINO Med. Rec. #: [id number] /Age/Gender: 1950 (Age: 68) / M Account: [id number] Location: [facility] MED/SURG Taken: 05/15/2019 Received: 05/15/2019 Reported: 05/19/2019 Physicians: Jagdish Kilpatrick M.D. Specimen(s) Received A: RIGHT HEMICOLETOMY B: ANASTOMOSIS SITE Clinical History Right colon tumor Final Diagnosis A. 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 SEVENTEEN LYMPH NODES, NEGATIVE FOR METASTATIC CARCINOMA (0/17). APPENDIX WITH NO SIGNIFICANT PATHOLOGIC CHANGE. SEGMENT OF ILEUM WITH NO SIGNIFICANT PATHOLOGIC CHANGE. MARGINS ARE NEGATIVE FOR TUMOR. B. ANASTOMOSIS SITE, EXCISION: PORTION OF COLON AND SMALL INTESTINE CONSISTENT WITH ANASTOMOSIS SITE. VITAL MARGINS. Electronically Signed Donnell Fernandez M.D. Gross Description A. Specimen received in formalin labeled "right hemicolectomy" and consists of the terminal portion of the ileum in continuity with the cecum, proximal colon, attached appendix and mesenteric adipose tissue. The terminal portion of the ileum measures 5.5cm in length and 4cm in average circumference. The segment of colon measures 24 cm in length and 8.5cm in average circumference. The serosal surface shows focal tattooed area. On opening, the colon reveals a polypoid mass measures 4.3 x 2.8 x1.0cm (length, width, and thickness). The mass is located 3.5cm distal to the ileocecal valve and 17cm proximal to the distal margin. It appears to not involve submucosal tissue. The rest of the bowel mucosa is unremarkable with the usual folding pattern. The appendix measures 6.0cm in length and 0.5cm in diameter and is unremarkable. Lymph nodes are isolated in the mesenteric adipose tissue adjacent to the mass, the largest measures 1.0cm in greatest dimension. The entire mass, other patient service representative sections, and all the lymph nodes isolated are submitted in 17 cassettes . 1. Proximal margin; 2. Distal margin; 3-9. Entire mass; 10. Small intestine; 11. Non-mass colon; 12. Appendix; 13 and 14. four whole lymph nodes each cassette; 15. Five whole lymph nodes; 16. One node, bisected; 17. Four lymph nodes. KWS/05/18/2019 B. Received in formalin labeled "anastomotic site" is a partially disrupted, undesignated, segment of bowel and with stapled margins of resection measuring 7 x 2 cm. Mucosal surface shows no lesions. [employer] Records Technology Teacher sections are submitted in 4 cassettes as follows: 1-2: Stapled margins of resection, undesignated. 3- area of disruption, 4- random colon. LASHAUN/05/18/2019 daryl05/18/2019
[2019-05-19 13:34] LABS: URIC ACID 8.9 mg/dL (2.6-7.2)
--- NOTE | 2019-05-19 14:59 | SURG ---
Surgery Plant Electrical Engineer Note Plant Electrical Engineer: Eugenia Shields PA-C (Suzy) Date of Service: 05/15/19 Diagnosis: Tumor in ascending colon. Procedure: Laparoscopic assisted right hemicolectomy. I was present for the entirety of the operative procedure. For further detail, please refer to operative report. Visit type - Case Type Case Type: Scheduled - Emergency Emergency Visit: No - New patient This patient is new to me today: Yes Date on this admission: 05/19/19 - Critical Care Critical Care patient: No
[2019-05-19] MEDS: SODIUM CHLORIDE 0.45% 1,000 ML IV SCH (17:24)
--- NOTE | 2019-05-19 18:18 | CONSULT ---
Consult - text type - Consultation Consultation Note: ORTHOPEDIC SURGERY CONSULTATION NOTE Department of Orthopedic Surgery HISTORY OF PRESENT ILLNESS Mr. Hardy is a 68 year old male who presents to [facility] for right hemicolectomy. The orthopedic service was consulted for bilateral knee pain. There was no specific injury. The patient notes pain and swelling. Denies any other injuries. Denies numbness, tingling or other constitutional complaints. Denies/ Endorses tobacco use, drug use, alcohol abuse. The patient uses no assistive devices at baseline. Patient states he has a history of Gout. Patient states he had a fever earlier, but is currently afebrile. FAMILY HISTORY non-contributory REVIEW OF SYMPTOMS A twelve-point review of systems was performed and was negative except as noted in HPI. PHYSICAL EXAM Constitutional: Alert and oriented to person, place, and time. Appears well- developed and well-nourished. No acute distress, appropriate mood and affect. Right Upper Extremity: Skin warm, dry, and intact; no lesions, rashes or ulcers noted. Muscle mass equal and symmetric to contralateral side. No atrophy noted. No masses or effusions noted. No tenderness to palpation all joints; nontender throughout rest of extremity. Full passive and active ROM, free from pain. Joints stable with no pathologic laxity. M/R/U/MSK/AX motor intact; SILT distally; 2+ radial pulses; Cap refill brisk. Tone and reflexes normal. Left Upper Extremity: Skin warm, dry, and intact; no lesions, rashes or ulcers noted. Muscle mass equal and symmetric to contralateral side. No atrophy noted. No masses or effusions noted. No tenderness to palpation all joints; nontender throughout rest of extremity. Full passive and active ROM, free from pain. Joints stable with no pathologic laxity. M/R/U/MSK/AX motor intact; SILT distally; 2+ radial pulses; Cap refill brisk. Tone and reflexes normal. Right Lower Extremity: Skin warm, dry, and intact; no lesions, rashes or ulcers noted. No Erythema. Muscle mass equal and symmetric to contralateral side. There is a mild effusion; No atrophy noted. No masses noted. No tenderness to palpation of the ankle and foot and hip; Tender to palpation over the knee; nontender throughout rest of extremity. No cords or calf tenderness; No significant calf/ankle edema. Full passive and active ROM of the hip and ankle free from pain. LROM 0-80 degrees of knee secondary to pain. Joints stable with no pathologic laxity. EHL/TA/GS motor intact; SILT distally; 2+ DP pulses; Cap refill brisk. Tone and reflexes normal. No Signs of septic joint. Left Lower Extremity: Skin warm, dry, and intact; no lesions, rashes or ulcers noted. No Erythema. Muscle mass equal and symmetric to contralateral side. There is a mild effusion; No atrophy noted. No masses noted. No tenderness to palpation of the ankle and foot and hip; Tender to palpation over the knee; nontender throughout rest of extremity. No cords or calf tenderness; No significant calf/ankle edema. Full passive and active ROM of the hip and ankle free from pain. LROM 0-80 degrees of knee secondary to pain. Joints stable with no pathologic laxity. EHL/TA/GS motor intact; SILT distally; 2+ DP pulses; Cap refill brisk. Tone and reflexes normal. No signs of septic joint. Active Problems Problem Status Category Onset Colonic mass Acute Medical HTN (hypertension) Acute Medical Hyperlipidemia Acute Medical Hypothyroidism Acute Medical Status post right hemicolectomy Acute Medical Past Medical History Cardio/Vascular AFIB,HTN,Hyperlipdemia Renal/ BPH Past Surgical History Past Surgical History Cataract Removal,TURP Social History Smoking history Never smoked Hx Alcohol Use No Allergies Allergy/AdvReac Type Severity Reaction Status Date / Time No Known Drug Allergies Allergy Verified 05/15/19 08:16 Active Medications Generic Name Dose Route Start Last Admin Trade Name Freq PRN Reason Stop Dose Admin Acetaminophen 1,000 mg 05/17/19 09:08 05/17/19 20:13 Ofirmev Injection - IVPB 1,000 mg Q6H PRN Administration PAIN LEVEL 1-5 OR FEVER Diphenhydramine HCl 12.5 mg 05/15/19 14:58 Benadryl Injection - IVPUSH ONCE PRN FOR ITCHING Fentanyl 50 mcg 05/15/19 14:24 05/15/19 14:40 Sublimaze Injection - IVPUSH 50 mcg [id number] PRN Administration PAIN-PACU ORDER X 4 DOSES ONLY Heparin Sodium (Porcine) 5,000 unit 05/16/19 11:45 05/19/19 09:15 Heparin - SQ 5,000 unit BID [facility] Administration Hydromorphone HCl 2 mg 05/18/19 10:56 Dilaudid Vial - IM Q8H PRN PAIN LEVEL 6-10 Sodium Chloride 1,000 mls @ 83 mls/hr 05/19/19 12:00 05/19/19 17:24 1/2 Normal Saline IV 83 mls/hr ASDIR [facility] Administration Levothyroxine Sodium 125 mcg 05/17/19 09:15 05/19/19 06:02 Synthroid - PO 125 mcg DAILY@0700 [facility] Administration Metoprolol Succinate 50 mg 05/17/19 10:00 05/19/19 09:15 Toprol Xl - PO 50 mg DAILY [facility] Administration Ondansetron HCl 4 mg 05/15/19 14:24 05/19/19 06:26 Zofran Injection IVPUSH 4 mg Q6H PRN Administration NAUSEA AND/OR VOMITING Ondansetron HCl 4 mg 05/15/19 14:58 05/18/19 06:23 Zofran Injection IVPUSH 4 mg Q4H PRN Administration NAUSEA AND/OR VOMITING Promethazine HCl 12.5 mg 05/15/19 14:58 Phenergan Injection - IVPB Q6H PRN NAUSEA AND/OR VOMITING Vital Signs (last) Temp Pulse Resp BP Pulse Ox 99 F 87 20 134/85 98 05/19/19 17:00 05/19/19 17:00 05/19/19 17:00 05/19/19 17:00 05/17/19 21:00 Intake and Output 05/17/19 05/18/19 05/19/19 23:59 23:59 23:59 Intake Total 1920 1390 720 Output Total 1320 800 Balance 600 590 720 Intake: IV 1920 1190 720 D5-1/2NS+20 MEQ KCL - 20 1920 1190 720 meq In 1,000 ml @ 60 mls/ hr IV ASDIR DOLORES Rx#: [id number] IVPB 200 Output: Urine 1320 800 Void 1320 800 Other: Voiding Method Urinal Urinal Urinal Bowel Movement No Weight Measurement Method Standing Scale Laboratory 05/19/19 06:38 05/19/19 06:38 IMAGING I personally reviewed all radiographs of bilateral knees. They demonstrate mild to moderate osteoarthritis. There are no fractures or dislocations seen. ASSESSMENT AND PLAN Mr. Hardy is a 68 year old male presenting with bilateral knee pain - likely inflammatory arthritis. We have reviewed the imaging and clinical findings in detail, as well as their potential implications. After appropriate informed discussion, we agreed on the following plan: 1. Pain control (NSAIDs if medically appropriate) 2. Recommend Rheumatology consult for history of gout. 3. Physical therapy - WBAT B/L LE if general surgery cleared for ambulation. 4. Ice/Elevate bilateral knees 5. Continue medical management (encourage incentive spirometer, encourage nutrition, and decubiti precautions while in bed) 6. No further orthopedic intervention at this time; no signs of septic joint in bilateral knees. All questions were answered. Thank you for involving our team in the care of this patient. Please re-consult if physical exam worsens or changes. Please have patient follow up in our office in 1-2 weeks [phone].
--- NOTE | 2019-05-19 19:27 | CON.NEURO ---
Consult Consult Specialty:: NEUROLOGY-[facility] Reason for Consultation:: Gait d/o - History of Present Illness History of Present Illness: 68 yrs old male with PMH of HTN , prediabetes, paroxysmal Afib, BPH, arthritis, hyperlipidemia, hypothyroidism found to have ascending colon mass - 6 cm , biopsy showed adenoma. He underwent right hemicolectomy yesterday be Dr Kilpatrick. Pt feels well.POD#4 Seen by orthopedics, thought to have inflammatory arthritis-the orthopedic service was consulted for bilateral knee pain. There was no specific injury. The patient notes pain and swelling. Denies any other injuries. Denies numbness , tingling or other constitutional complaints. Denies/Endorses tobacco use, drug use, alcohol abuse. The patient uses no assistive devices at baseline. Patient states he has a history of Gout. Patient states he had a fever earlier, but is currently afebrile. Mr. Hardy reports he has not been able to stand since his surgery, attributes it to bilat. knee pain. Denies back pain, numbness, bladder disturbance. Nursing attempted to get him out of bed he is not able to stand. - Past Medical History Cardio/Vascular: Yes: AFIB (paroxysmal not on AC ), HTN, Hyperlipdemia Renal/: Yes: BPH - Past Surgical History Past Surgical History: Yes: Cataract Removal, TURP - Alcohol/Substance Use Hx Alcohol Use: No - Smoking History Smoking history: Never smoked Have you smoked in the past 12 months: No Home Medications - Allergies Allergies/Adverse Reactions: Allergies Allergy/AdvReac Type Severity Reaction Status Date / Time No Known Drug Allergies Allergy Verified 05/15/19 08:16 - Home Medications Home Medications: Ambulatory Orders Amlodipine Besylate [Norvasc -] 10 mg PO DAILY 10/06/12 Levothyroxine [Synthroid -] 125 mcg PO DAILY 10/06/12 Metoprolol Succinate [Toprol XL -] 50 mg PO DAILY 10/06/12 Hydrochlorothiazide [Hctz -] 25 mg PO DAILY 05/14/19 Losartan Potassium 100 mg PO DAILY 05/15/19 Physical Exam-Neuro Vital Signs: Vital Signs Temperature 100.4 F H 05/19/19 18:22 Pulse Rate 87 05/19/19 17:00 Respiratory Rate 20 05/19/19 17:00 Blood Pressure 134/85 05/19/19 17:00 O2 Sat by Pulse Oximetry (%) 98 05/17/19 21:00 Labs: CBC, BMP 05/19/19 06:38 05/19/19 06:38 - Neuro Exam Mini Mental Exam: intact DTR's: 0 Left Brachioradialis, 0 Right Brachioradialis, 0 Left Achilles, 0 Right Achilles (Bilat knee jerks-1+), 1+ Left Bicep, 1+ Right Bicep, 1+ Left Tricep, 1+ Right Tricep Babinski: Absent Response to light touch: Normal Motor Strength: 3/5: Left Leg, Right Leg (Both I/P/Q/H-3/, Ankle DF/PF-/5. No thigh muscle tenderness), 5/5: Left Arm, Right Arm Gait: Other (Unable to stand.) Assessment/Plan Pt. with bilat LE weakness, no sensory sx/sx,appears to be of the lower motor neuron type. Weakness may be added to by knee pain but cannot be explained based on knee pain. ?? conus syndrome, need to r/o cord infarction, not likely epidural abscess. Suggest-MRI T/L spine without contrast. Further management thereafter. Thank you, Veronica Chaidez MD
[2019-05-19 19:52] LABS: HEMATOCRIT 37.4 % (35.4-49); HEMOGLOBIN 11.9 GM/dL (11.7-16.9); MCH 27.1 pg (25.7-33.7); MCHC 31.9 g/dl (32.0-35.9); MEAN CELL VOLUME 85.2 fl (80-96); MEAN PLT VOLUME 9.6 fl (7.5-11.1); PLATELET COUNT 186 K/MM3 (134-434); RBC 4.39 M/mm3 (4.00-5.60); RDW 14.2 % (11.9-15.9); WHITE BLOOD COUNT 14.7 K/mm3 (4.0-10.0)
[2019-05-19 20:05] LABS: BLOOD UREA NITROGEN 30.3 mg/dL (7-18); CALCIUM 9.6 mg/dL (8.5-10.1); CREATININE 1.5 mg/dL (0.55-1.3); POTASSIUM 4.2 mmol/L (3.5-5.1)
[2019-05-19] MEDS: ONDANSETRON 4 MG/2 ML VIAL IVPUSH PRN (22:22)
[2019-05-20] MEDS: PROMETHAZINE HCL 25 MG/1 ML VIAL IVPB PRN ×2 (02:27→18:33)
[2019-05-20] MEDS: LEVOTHYROXINE NA 125 MCG TABLET (FP) PO SCH (07:10)
[2019-05-20] MEDS: HEPARIN NA (PORCINE) 5,000 UNITS/ML 1ML VIAL SQ SCH ×2 (09:43→21:29)
--- NOTE | 2019-05-20 10:09 | PN ---
Progress Note (short form) - Note Progress Note: 68 yrs old male with PMH of HTN , prediabetes, BPH, arthritis, hyperlipidemia, hypothyroidism found to have ascending colon mass - 6 cm , biopsy showed adenoma. He underwent right hemicolectomy POD#5. experienced weakness of legs post surgery, L >R. Seen by orthopedics, thought to have inflammatory arthritis-the orthopedic service was consulted for bilateral knee pain. There was no specific injury. The patient notes pain and swelling. Denies any other injuries. Denies numbness , tingling or other constitutional complaints. Denies/Endorses tobacco use, drug use, alcohol abuse. The patient uses no assistive devices at baseline. Patient states he has a history of Gout. Patient states he had a fever earlier, but is currently afebrile. Mr. Hardy reports he has not been able to stand since his surgery, attributes it to bilat. knee pain. Denies back pain, numbness, bladder disturbance. Nursing attempted to get him out of bed he is not able to stand. FU : this Am contin ues to have weakness, thougha s per PT , moving a bit more. weakness LE, R IP 3/5, 2/5 L, Quads R 4/5, L 3/5 , TA R 5/5 and L 4+/5, R hams 4 +/5 and L 4/5 ; UE 5/5 patellar 1+ and Achilles 1+ ; no sensory level, Prop intact, - Past Medical History Cardio/Vascular: Yes: AFIB (paroxysmal not on AC ), HTN, Hyperlipdemia Renal/: Yes: BPH - Past Surgical History Past Surgical History: Yes: Cataract Removal, TURP - Alcohol/Substance Use Hx Alcohol Use: No - Smoking History Smoking history: Never smoked Have you smoked in the past 12 months: No Home Medications - Allergies Allergies/Adverse Reactions: Allergies Allergy/AdvReac Type Severity Reaction Status Date / Time No Known Drug Allergies Allergy Verified 05/15/19 08:16 - Home Medications Home Medications: Ambulatory Orders Amlodipine Besylate [Norvasc -] 10 mg PO DAILY 10/06/12 Levothyroxine [Synthroid -] 125 mcg PO DAILY 10/06/12 Metoprolol Succinate [Toprol XL -] 50 mg PO DAILY 10/06/12 Hydrochlorothiazide [Hctz -] 25 mg PO DAILY 05/14/19 Losartan Potassium 100 mg PO DAILY 05/15/19 Physical Exam-Neuro Vital Signs: Vital Signs Temperature 100.4 F H 05/19/19 18:22 Pulse Rate 87 05/19/19 17:00 Respiratory Rate 20 05/19/19 17:00 Blood Pressure 134/85 05/19/19 17:00 O2 Sat by Pulse Oximetry (%) 98 05/17/19 21:00 Labs: CBCD WBC 14.7 K/mm3 (4.0-10.0) H 05/19/19 18:20 RBC 4.39 M/mm3 (4.00-5.60) 05/19/19 18:20 Hgb 11.9 GM/dL (11.7-16.9) 05/19/19 18:20 Hct 37.4 % (35.4-49) 05/19/19 18:20 MCV 85.2 fl (80-96) 05/19/19 18:20 MCHC 31.9 g/dl (32.0-35.9) L 05/19/19 18:20 RDW 14.2 % (11.9-15.9) 05/19/19 18:20 Plt Count 186 K/MM3 (134-434) 05/19/19 18:20 MPV 9.6 fl (7.5-11.1) 05/19/19 18:20 CMP Sodium 136 mmol/L (136-145) 05/19/19 18:20 Potassium 4.2 mmol/L (3.5-5.1) 05/19/19 18:20 Chloride 101 mmol/L (98-107) 05/19/19 18:20 Carbon Dioxide 28 mmol/L (21-32) 05/19/19 18:20 Anion Gap 8 MMOL/L (8-16) 05/19/19 18:20 BUN 30.3 mg/dL (7-18) H 05/19/19 18:20 Creatinine 1.5 mg/dL (0.55-1.3) H 05/19/19 18:20 Calcium 9.6 mg/dL (8.5-10.1) 05/19/19 18:20 Total Bilirubin 0.8 mg/dL (0.2-1) 05/19/19 06:38 AST 19 U/L (15-37) 05/19/19 06:38 ALT 18 U/L (13-61) 05/19/19 06:38 Alkaline Phosphatase 82 U/L (45-117) 05/19/19 06:38 Total Protein 6.9 g/dl (6.4-8.2) 05/19/19 06:38 Albumin 2.8 g/dl (3.4-5.0) L 05/19/19 06:38 - Neuro Exam Mini Mental Exam: intact DTR's: 0 Left Brachioradialis, 0 Right Brachioradialis, 0 Left Achilles, 0 Right Achilles (Bilat knee jerks-1+), 1+ Left Bicep, 1+ Right Bicep, 1+ Left Tricep, 1+ Right Tricep Babinski: Absent Response to light touch: Normal Motor Strength: 3: Left Leg, Right Leg (Both I/P/Q/H-11/11, Ankle DF/PF-01/11. No thigh muscle tenderness), 01/11: Left Arm, Right Arm Gait: Other (Unable to stand.) Assessment/Plan Pt. with bilat LE weakness, ayssmetric papraplegia L >R, post hemicolectomy ; no sensory sx/sx,appears to be of the lower motor neuron type. anterior spinal cord infarct /myelitis in differential vs asymmetric radiculopathy (less likely); ? focal entrapment of LS plexus post surgery, vs less likely neuropathy ( this is unusual for GBS, preserved reflexes) vs myopathy (though acute uncommon and CPK WNL) --check MRI T and LS spine witH MANN; check EMG LE, FU CPK, TSH , A1c, GRETA, ESR, B12, b1. rehab DR [facility]
--- NOTE | 2019-05-20 10:33 | PN ---
Progress Note (short form) - Note Progress Note: having low grade fever has a bm tolerating diet decreased pain in joints B/L Vital Signs - 24 hr 05/19/19 05/19/19 05/19/19 10:46 14:00 17:00 Temperature 98.5 F 100.2 F H 99 F Pulse Rate 84 78 87 Respiratory 20 20 20 Rate Blood Pressure 144/86 138/71 134/85 O2 Sat by Pulse Oximetry (%) 05/19/19 05/19/19 05/19/19 18:22 21:00 22:00 Temperature 100.4 F H 99.5 F Pulse Rate 94 H Respiratory 20 Rate Blood Pressure 132/74 O2 Sat by Pulse 95 Oximetry (%) 05/20/19 05/20/19 02:37 06:39 Temperature 98.2 F 99.5 F Pulse Rate 80 78 Respiratory 20 20 Rate Blood Pressure 112/72 O2 Sat by Pulse Oximetry (%) Current Medications Generic Name Dose Route Start Last Admin Trade Name Freq PRN Reason Stop Dose Admin Acetaminophen 1,000 mg 05/17/19 09:08 05/17/19 20:13 Ofirmev Injection - IVPB 1,000 mg Q6H PRN Administration PAIN LEVEL 1-5 OR FEVER Diphenhydramine HCl 12.5 mg 05/15/19 14:58 Benadryl Injection - IVPUSH ONCE PRN FOR ITCHING Fentanyl 50 mcg 05/15/19 14:24 05/15/19 14:40 Sublimaze Injection - IVPUSH 50 mcg [id number] PRN Administration PAIN-PACU ORDER X 4 DOSES ONLY Heparin Sodium (Porcine) 5,000 unit 05/16/19 11:45 05/20/19 09:43 Heparin - SQ 5,000 unit BID DOLORES Administration Hydromorphone HCl 2 mg 05/18/19 10:56 Dilaudid Vial - IM Q8H PRN PAIN LEVEL 6-10 Sodium Chloride 1,000 mls @ 83 mls/hr 05/19/19 12:00 05/19/19 17:24 1/2 Normal Saline IV 83 mls/hr ASDIR DOLORES Administration Levothyroxine Sodium 125 mcg 05/17/19 09:15 05/20/19 07:10 Synthroid - PO 125 mcg DAILY@0700 DOLORES Administration Metoprolol Succinate 50 mg 05/17/19 10:00 05/20/19 09:42 Toprol Xl - PO 50 mg DAILY DOLORES Administration Ondansetron HCl 4 mg 05/15/19 14:24 05/19/19 06:26 Zofran Injection IVPUSH 4 mg Q6H PRN Administration NAUSEA AND/OR VOMITING Promethazine HCl 12.5 mg 05/15/19 14:58 05/20/19 02:27 Phenergan Injection - IVPB 12.5 mg Q6H PRN Administration NAUSEA AND/OR VOMITING Laboratory Results - last 24 hr 05/19/19 05/19/19 05/19/19 12:33 12:33 18:20 WBC 14.7 H RBC 4.39 Hgb 11.9 Hct 37.4 MCV 85.2 MCH 27.1 MCHC 31.9 L RDW 14.2 Plt Count 186 MPV 9.6 ESR 71 H Sodium Potassium Chloride Carbon Dioxide Anion Gap BUN Creatinine Est GFR (CKD-EPI)AfAm Est GFR (CKD-EPI)NonAf Random Glucose Uric Acid 8.9 H Calcium Creatine Kinase 155 Creatine Kinase Index 0.8 CK-MB (CK-2) 1.3 05/19/19 05/20/19 18:20 07:43 WBC RBC Hgb Hct MCV MCH MCHC RDW Plt Count MPV ESR Sodium 136 Potassium 4.2 Chloride 101 Carbon Dioxide 28 Anion Gap 8 BUN 30.3 H Creatinine 1.5 H Est GFR (CKD-EPI)AfAm 55.04 Est GFR (CKD-EPI)NonAf 47.49 Random Glucose 108 H Uric Acid Calcium 9.6 Creatine Kinase 190 Creatine Kinase Index 1.0 CK-MB (CK-2) 2.0 S1 S2 RRR Lungs decreased crackles ABd- soft, NT, distended,++ BS+ trace edema tender B/l knees-->less today restricted movements of B/l legs, B/L knees unable to flex hip joints able to flex knees but with pain no sensory deficits PLAN full liquids IV fluids CXR -- no infiltrates CBC --wbc trending down check labs today spoke with Neurology check ABD/PELVIS ct renal function noted-- check todays labs Ortho eval noted has elevated uric acid rheumatology eval temps-- low grade fever -- labs noted check cultures-->negative-> can it be due to inflammatory process? dc Levaquin Problem List - Problems (1) Colonic mass Code(s): K63.89 - OTHER SPECIFIED DISEASES OF INTESTINE (2) Status post right hemicolectomy Code(s): Z90.49 - ACQUIRED ABSENCE OF OTHER SPECIFIED PARTS OF DIGESTIVE TRACT (3) HTN (hypertension) Code(s): I10 - ESSENTIAL (PRIMARY) HYPERTENSION (4) Hypothyroidism Code(s): E03.9 - HYPOTHYROIDISM, UNSPECIFIED (5) Hyperlipidemia Code(s): E78.5 - HYPERLIPIDEMIA, UNSPECIFIED
[2019-05-20 12:20] LABS: HEMATOCRIT 38.4 % (35.4-49); HEMOGLOBIN 12.4 GM/dL (11.7-16.9); MCH 27.6 pg (25.7-33.7); MCHC 32.2 g/dl (32.0-35.9); MEAN CELL VOLUME 85.7 fl (80-96); MEAN PLT VOLUME 9.6 fl (7.5-11.1); PLATELET COUNT 196 K/MM3 (134-434); RBC 4.48 M/mm3 (4.00-5.60); RDW 14.4 % (11.9-15.9); WHITE BLOOD COUNT 11.7 K/mm3 (4.0-10.0)
--- NOTE | 2019-05-20 12:26 | PN ---
Progress Note, Physician - Current Medication List Current Medications: Active Medications Acetaminophen (Ofirmev Injection -) 1,000 mg IVPB Q6H PRN PRN Reason: PAIN LEVEL 1-5 OR FEVER Last Admin: 05/17/19 20:13 Dose: 1,000 mg Diphenhydramine HCl (Benadryl Injection -) 12.5 mg IVPUSH ONCE PRN PRN Reason: FOR ITCHING Fentanyl (Sublimaze Injection -) 50 mcg IVPUSH [id number] PRN PRN Reason: PAIN-PACU ORDER X 4 DOSES ONLY Last Admin: 05/15/19 14:40 Dose: 50 mcg Heparin Sodium (Porcine) (Heparin -) 5,000 unit SQ BID [facility] Last Admin: 05/20/19 09:43 Dose: 5,000 unit Hydromorphone HCl (Dilaudid Vial -) 2 mg IM Q8H PRN PRN Reason: PAIN LEVEL 6-10 Sodium Chloride (1/2 Normal Saline) 1,000 mls @ 83 mls/hr IV ASDIR [facility] Last Admin: 05/19/19 17:24 Dose: 83 mls/hr Levothyroxine Sodium (Synthroid -) 125 mcg PO DAILY@0700 [facility] Last Admin: 05/20/19 07:10 Dose: 125 mcg Metoprolol Succinate (Toprol Xl -) 50 mg PO DAILY [facility] Last Admin: 05/20/19 09:42 Dose: 50 mg Ondansetron HCl (Zofran Injection) 4 mg IVPUSH Q6H PRN PRN Reason: NAUSEA AND/OR VOMITING Last Admin: 05/19/19 06:26 Dose: 4 mg Promethazine HCl (Phenergan Injection -) 12.5 mg IVPB Q6H PRN PRN Reason: NAUSEA AND/OR VOMITING Last Admin: 05/20/19 02:27 Dose: 12.5 mg - Objective Vital Signs: Vital Signs Temperature 99.5 F 05/20/19 06:39 Pulse Rate 78 05/20/19 06:39 Respiratory Rate 20 05/20/19 06:39 Blood Pressure 112/72 05/20/19 06:39 O2 Sat by Pulse Oximetry (%) 95 05/19/19 21:00 Assessment/Plan Surgery: Patient has hiccups. Denies any nausea or vomiting. He is drinking the contrast for abdominal Ct scan , ordered by Dr. Zuluaga. Abdomen is soft, not tender , his abdomen is obese. He is having bowel movements. Will progress diet to soft diet , if abdominal CTb scan is [place] [address]. No sign of phlebitis. No calf tenderness. Neurology consult noted. Able to take a few steps with assistance. On DVT prophylaxis.
[2019-05-20 12:41] LABS: ALBUMIN 2.8 g/dl (3.4-5.0); BILIRUBIN,TOTAL 0.7 mg/dL (0.2-1); CALCIUM 9.9 mg/dL (8.5-10.1); MAGNESIUM 2.5 mg/dL (1.8-2.4); PHOSPHOROUS 3.3 mg/dL (2.5-4.9); POTASSIUM 4.5 mmol/L (3.5-5.1)
[2019-05-20] MEDS: SODIUM CHLORIDE 0.45% 1,000 ML IV SCH (15:09)
[2019-05-20] MEDS: ACETAMINOPHEN 1000 MG/100 ML VIAL (NON FORMULARY) IVPB PRN (16:37)
--- NOTE | 2019-05-20 17:15 | CONSULT ---
Consult Consult Specialty:: Rheumatology - History of Present Illness History of Present Illness: 68 yrs old male with PMH of HTN , prediabetes, paroxysmal Afib, BPH, hyperlipidemia, hypothyroidism, admitted for hemicolectomy of ascending colon for 1 6 cm mass - diagnosed as adenoma. In the hospital he developed pain and swelling of both knees, HPI The patient reports that 5 years ago he developed an episode of acute pain in both knees,apparently diagnosed with gout, Afterwards he developed 2 more episodes, the last started 5 days ago. He denies episodes of arthritis in MTPs or ankles. His brother and a cousin have history of gout. Laboratory woirk-up in the hospital revealed glucose 125, creatinine on admission 1.4 and today 2.0. Uric acid 8.9, urinalysis protein 1 + and no blood. ESR 71. X-rays of the knees: mildnarrowing of the medial compartment in both knees. Ruleout chondrocalcinosis. - History Source History Provided By: Patient, Medical Record - Past Medical History Cardio/Vascular: Yes: AFIB (paroxysmal not on AC ), HTN, Hyperlipdemia Renal/: Yes: BPH - Past Surgical History Past Surgical History: Yes: Cataract Removal, TURP - Alcohol/Substance Use Hx Alcohol Use: No - Smoking History Smoking history: Never smoked Have you smoked in the past 12 months: No Home Medications - Allergies Allergies/Adverse Reactions: Allergies Allergy/AdvReac Type Severity Reaction Status Date / Time No Known Drug Allergies Allergy Verified 05/15/19 08:16 - Home Medications Home Medications: Ambulatory Orders Amlodipine Besylate [Norvasc -] 10 mg PO DAILY 10/06/12 Levothyroxine [Synthroid -] 125 mcg PO DAILY 10/06/12 Metoprolol Succinate [Toprol XL -] 50 mg PO DAILY 10/06/12 Hydrochlorothiazide [Hctz -] 25 mg PO DAILY 05/14/19 Losartan Potassium 100 mg PO DAILY 05/15/19 Family Disease History - Family Disease History Family Disease History: Other: Brother (Gout) Review of Systems - Review of Systems Constitutional: reports: Malaise Eyes: reports: No Symptoms HENT: reports: No Symptoms Neck: reports: No Symptoms Cardiovascular: reports: No Symptoms Respiratory: reports: No Symptoms Gastrointestinal: reports: Abdominal Pain, Nausea, Vomiting Musculoskeletal: reports: Other (See HPI) Physical Exam Vital Signs: Vital Signs Temperature 101 F H 05/20/19 16:20 Pulse Rate 109 H 05/20/19 16:20 Respiratory Rate 20 05/20/19 16:20 Blood Pressure 101/63 05/20/19 16:20 O2 Sat by Pulse Oximetry (%) 95 05/19/19 21:00 Constitutional: Yes: Mild Distress Eyes: Yes: WNL HENT: Yes: WNL Neck: Yes: WNL Cardiovascular: Yes: WNL Respiratory: Yes: WNL Gastrointestinal: Yes: Other (Mildabdominaltenderness, no rebound.) Musculoskeletal: Yes: Other (Tenderness and swelling of both knees. No other active joints.) Labs: CBC, BMP 05/20/19 11:30 05/20/19 11:30 Laboratory Tests 05/17/19 05/19/19 05/19/19 11:40 06:38 12:33 ESR 71 H Creatinine 1.4 H Uric Acid Phosphorus Magnesium Total Bilirubin AST ALT Alkaline Phosphatase Creatine Kinase Total Protein Albumin Urine Appearance Clear Urine pH 5.0 Ur Specific [place] 1.025 Urine Protein 1+ H Urine Glucose (UA) Negative Urine Ketones 1+ H Urine Blood Negative Urine Nitrite Negative Urine Bilirubin Negative Urine Urobilinogen 0.2 Ur Leukocyte Esterase Negative Urine WBC (Auto) 1 Urine Casts (Auto) 6 05/19/19 05/19/19 05/20/19 12:33 18:20 07:43 ESR 6 Creatinine 1.5 H Uric Acid 8.9 H Phosphorus Magnesium Total Bilirubin AST ALT Alkaline Phosphatase Creatine Kinase Total Protein Albumin Urine Appearance Urine pH Ur Specific [place] Urine Protein Urine Glucose (UA) Urine Ketones Urine Blood Urine Nitrite Urine Bilirubin Urine Urobilinogen Ur Leukocyte Esterase Urine WBC (Auto) Urine Casts (Auto) 05/20/19 05/20/19 07:43 11:30 ESR Creatinine 2.0 H Uric Acid Phosphorus 3.3 Magnesium 2.5 H Total Bilirubin 0.7 AST 52 H ALT 52 Alkaline Phosphatase 91 Creatine Kinase 190 Total Protein 7.0 Albumin 2.8 L Urine Appearance Urine pH Ur Specific [place] Urine Protein Urine Glucose (UA) Urine Ketones Urine Blood Urine Nitrite Urine Bilirubin Urine Urobilinogen Ur Leukocyte Esterase Urine WBC (Auto) Urine Casts (Auto) Problem List - Problems (1) Bilateral knee effusions Assessment/Plan: Acute bilateral knee arthritis. Probable Pseudogout, rule out gouty arthritis. PROCEDURE. Under aseptic conditions I aspirated the left knee, obtained 36 ml of yellowish opaque fluid and injected 60 mg Depomedrol and 1 ml Lidocaine 1%. Fluid sent for cell count, crystal analysis and culture. Based in response and labs I will evaluate injecting the right knee Code(s): M25.461 - EFFUSION, RIGHT KNEE; M25.462 - EFFUSION, LEFT KNEE
[2019-05-20 18:43] LABS: SYNOVIAL FLUID LYMPHOCYTES 8 %; SYNOVIAL FLUID MACROPHAGES 4 %; SYNOVIAL FLUID MONOCYTES 6 %; SYNOVIAL FLUID NEUTROPHILS 82 %; SYNOVIAL FLUID RBC 471 /mm3
[2019-05-20 18:49] LABS: CRYSTALS,SYNOVIAL FLUID MONOSODIUM URATE CRY
[2019-05-20] MEDS ORDERED: cefTRIAXone SODIUM 1 GM VIAL ONE (22:35)
[2019-05-20] MEDS ORDERED: DEXTROSE 5%-WATER - 50 ML IVPB ONE (22:36)
[2019-05-20] MEDS: CEFTRIAXONE 1 GM in DEXTROSE 5%-WATER - 50 ML IVPB SCH (22:38)
[2019-05-21] MEDS: LEVOTHYROXINE NA 125 MCG TABLET (FP) PO SCH (06:01)
[2019-05-21 06:15] LABS: EPI CELLS 2.1 /HPF (0-5/HPF); HYALINE CASTS 20 /lpf (0-8); URINE APPEARANCE CLOUDY; URINE BACTERIA 0 /hpf (NEGATIVE); URINE BILIRUBIN NEGATIVE (NEGATIVE); URINE COLOR YELLOW; URINE GLUCOSE (UA) NEGATIVE (NEGATIVE); URINE KETONE NEGATIVE (NEGATIVE); URINE LEUK ESTERASE NEGATIVE (NEGATIVE); URINE NITRITE NEGATIVE (NEGATIVE); URINE PROTEIN 1+ (NEGATIVE); URINE WBC 2 /hpf (0-5)
[2019-05-21] MEDS: SODIUM CHLORIDE 0.45% 1,000 ML IV SCH ×2 (06:19→21:19)
[2019-05-21 07:12] LABS: URINE RBC 6.5 /hpf (0-4)
[2019-05-21 08:39] LABS: HEMATOCRIT 35.3 % (35.4-49); HEMOGLOBIN 11.7 GM/dL (11.7-16.9); MCH 27.8 pg (25.7-33.7); MCHC 33.1 g/dl (32.0-35.9); MEAN CELL VOLUME 83.9 fl (80-96); MEAN PLT VOLUME 9.2 fl (7.5-11.1); PLATELET COUNT 192 K/MM3 (134-434); RBC 4.21 M/mm3 (4.00-5.60); RDW 14.2 % (11.9-15.9)
[2019-05-21 09:08] LABS: ALBUMIN 2.5 g/dl (3.4-5.0); BILIRUBIN,TOTAL 0.6 mg/dL (0.2-1); BLOOD UREA NITROGEN 56.7 mg/dL (7-18); CALCIUM 8.9 mg/dL (8.5-10.1); CREATININE 1.8 mg/dL (0.55-1.3); POTASSIUM 4.4 mmol/L (3.5-5.1); TOT PROT 6.2 g/dl (6.4-8.2)
[2019-05-21] MEDS ORDERED: cefTRIAXone SODIUM 1 GM VIAL ONE (11:13)
[2019-05-21] MEDS ORDERED: DEXTROSE 5%-WATER - 50 ML IVPB ONE (11:13)
[2019-05-21] MEDS: HEPARIN NA (PORCINE) 5,000 UNITS/ML 1ML VIAL SQ SCH ×2 (11:15→21:19)
[2019-05-21] MEDS: CEFTRIAXONE 1 GM in DEXTROSE 5%-WATER - 50 ML IVPB SCH (11:16)
--- NOTE | 2019-05-21 12:40 | PN ---
Progress Note (short form) - Note Progress Note: had high temp yesterday CT abd noted-- SBO now has NG tube NPO decreased pain in joints B/L Vital Signs - 24 hr 05/20/19 05/20/19 05/20/19 14:00 16:20 18:00 Temperature 98.9 F 101 F H 100.5 F H Pulse Rate 105 H 109 H 76 Respiratory 20 20 24 H Rate Blood Pressure 98/58 L 101/63 108/56 L O2 Sat by Pulse Oximetry (%) 05/20/19 05/20/19 05/21/19 21:00 22:00 02:10 Temperature 98.4 F Pulse Rate 100 H 95 H Respiratory 20 20 Rate Blood Pressure 97/72 109/66 O2 Sat by Pulse 95 Oximetry (%) 05/21/19 05/21/19 07:08 09:00 Temperature 98.3 F 98.9 F Pulse Rate 92 H 95 H Respiratory 20 20 Rate Blood Pressure 113/70 121/70 O2 Sat by Pulse 97 Oximetry (%) Current Medications Generic Name Dose Route Start Last Admin Trade Name Freq PRN Reason Stop Dose Admin Acetaminophen 1,000 mg 05/17/19 09:08 05/20/19 16:37 Ofirmev Injection - IVPB 1,000 mg Q6H PRN Administration PAIN LEVEL 1-5 OR FEVER Diphenhydramine HCl 12.5 mg 05/15/19 14:58 Benadryl Injection - IVPUSH ONCE PRN FOR ITCHING Fentanyl 50 mcg 05/15/19 14:24 05/15/19 14:40 Sublimaze Injection - IVPUSH 50 mcg [id number] PRN Administration PAIN-PACU ORDER X 4 DOSES ONLY Heparin Sodium (Porcine) 5,000 unit 05/16/19 11:45 05/21/19 11:15 Heparin - SQ 5,000 unit BID DOLORES Administration Hydromorphone HCl 2 mg 05/18/19 10:56 Dilaudid Vial - IM Q8H PRN PAIN LEVEL 6-10 Sodium Chloride 1,000 mls @ 83 mls/hr 05/19/19 12:00 05/21/19 06:19 1/2 Normal Saline IV 83 mls/hr ASDIR DOLORES Administration Ceftriaxone Sodium 1 gm/ 50 mls @ 100 mls/hr 05/20/19 22:45 05/21/19 11:16 Dextrose IVPB 100 mls/hr DAILY DOLORES Administration Levothyroxine Sodium 125 mcg 05/17/19 09:15 05/21/19 06:01 Synthroid - PO Not Given DAILY@0700 DOLORES Metoprolol Succinate 50 mg 05/17/19 10:00 05/21/19 11:17 Toprol Xl - PO Not Given DAILY DOLORES Ondansetron HCl 4 mg 05/15/19 14:24 05/19/19 06:26 Zofran Injection IVPUSH 4 mg Q6H PRN Administration NAUSEA AND/OR VOMITING Promethazine HCl 12.5 mg 05/15/19 14:58 05/20/19 18:33 Phenergan Injection - IVPB 12.5 mg Q6H PRN Administration NAUSEA AND/OR VOMITING Laboratory Results - last 24 hr 05/20/19 05/20/19 05/21/19 11:30 17:00 06:00 WBC RBC Hgb Hct MCV MCH MCHC RDW Plt Count MPV ESR Sodium Potassium Chloride Carbon Dioxide Anion Gap BUN Creatinine Est GFR (CKD-EPI)AfAm Est GFR (CKD-EPI)NonAf Random Glucose Hemoglobin A1c % Calcium Total Bilirubin AST ALT Alkaline Phosphatase Creatine Kinase Creatine Kinase Index CK-MB (CK-2) Total Protein Albumin Vitamin B12 395 TSH Urine Color Yellow Urine Appearance Cloudy Urine pH 5.0 Ur Specific [place] 1.029 Urine Protein 1+ H Urine Glucose (UA) Negative Urine Ketones Negative Urine Blood Negative Urine Nitrite Negative Urine Bilirubin Negative Urine Urobilinogen 1.0 Ur Leukocyte Esterase Negative Urine WBC (Auto) 2 Urine RBC (Auto) 6.5 Urine Casts (Auto) 20 U Pathogenic Cast Auto none seen U Epithel Cells (Auto) 2.1 Urine Bacteria (Auto) 0 Synovial Source No Result Required. Synovial WBC 11.713 Synovial RBC 471 Synovial Neutrophils 82 Synovial Lymphocytes 8 Synovial Monocytes 6 Synovial Histocytes No Result Required. Synovial Plasma Cells No Result Required. Synovial LE Cells No Result Required. Synovial Macrophages 4 Synovial Other Cells No Result Required. Synovial Diff Comment No Result Required. Synovial Crystals Monosodium urate cry 05/21/19 05/21/19 05/21/19 07:24 07:24 07:24 WBC 13.0 H RBC 4.21 Hgb 11.7 Hct 35.3 L MCV 83.9 MCH 27.8 MCHC 33.1 RDW 14.2 Plt Count 192 MPV 9.2 ESR 34 H Sodium 134 L Potassium 4.4 Chloride 101 Carbon Dioxide 21 Anion Gap 12 BUN 56.7 H Creatinine 1.8 H Est GFR (CKD-EPI)AfAm 44.15 Est GFR (CKD-EPI)NonAf 38.10 Random Glucose 101 Hemoglobin A1c % Calcium 8.9 Total Bilirubin 0.6 AST 60 H ALT 54 Alkaline Phosphatase 82 Creatine Kinase 332 H Creatine Kinase Index 2.0 CK-MB (CK-2) 6.7 H Total Protein 6.2 L Albumin 2.5 L Vitamin B12 TSH 1.60 D Urine Color Urine Appearance Urine pH Ur Specific [place] Urine Protein Urine Glucose (UA) Urine Ketones Urine Blood Urine Nitrite Urine Bilirubin Urine Urobilinogen Ur Leukocyte Esterase Urine WBC (Auto) Urine RBC (Auto) Urine Casts (Auto) U Pathogenic Cast Auto U Epithel Cells (Auto) Urine Bacteria (Auto) Synovial Source Synovial WBC Synovial RBC Synovial Neutrophils Synovial Lymphocytes Synovial Monocytes Synovial Histocytes Synovial Plasma Cells Synovial LE Cells Synovial Macrophages Synovial Other Cells Synovial Diff Comment Synovial Crystals 05/21/19 07:24 WBC RBC Hgb Hct MCV MCH MCHC RDW Plt Count MPV ESR Sodium Potassium Chloride Carbon Dioxide Anion Gap BUN Creatinine Est GFR (CKD-EPI)AfAm Est GFR (CKD-EPI)NonAf Random Glucose Hemoglobin A1c % 6.3 Calcium Total Bilirubin AST ALT Alkaline Phosphatase Creatine Kinase Creatine Kinase Index CK-MB (CK-2) Total Protein Albumin Vitamin B12 TSH Urine Color Urine Appearance Urine pH Ur Specific [place] Urine Protein Urine Glucose (UA) Urine Ketones Urine Blood Urine Nitrite Urine Bilirubin Urine Urobilinogen Ur Leukocyte Esterase Urine WBC (Auto) Urine RBC (Auto) Urine Casts (Auto) U Pathogenic Cast Auto U Epithel Cells (Auto) Urine Bacteria (Auto) Synovial Source Synovial WBC Synovial RBC Synovial Neutrophils Synovial Lymphocytes Synovial Monocytes Synovial Histocytes Synovial Plasma Cells Synovial LE Cells Synovial Macrophages Synovial Other Cells Synovial Diff Comment Synovial Crystals S1 S2 RRR Lungs decreased crackles ABd- soft, NT, distended,no BS trace edema tender B/l knees-->less today restricted movements of B/l legs, B/L knees unable to flex hip joints able to flex knees but with pain no sensory deficits PLAN s/p hemicolectomy, BSO --NPO --IV fluids -- abd xray noted -- NG suction -- CXR -- no infiltrates Elevated temp-- --CBC --wbc trending down -- ID eval --cultures redrawn -- started empiric ceftriaxone --acute gout-->urate crystals on tap weakness of legs -- EMG today -- MRI done-- results pending -- neuro follow up Acute renal failure -- on iv fluids -- Renal eval -- has low BP-can hypoperfusion be the cause vs dehydration from SBO -- trend renal parameters DVT prophylaxis-- Heparin sc rheumatology eval noted, he should get intra-articular steroid injection Problem List - Problems (1) Colonic mass Code(s): K63.89 - OTHER SPECIFIED DISEASES OF INTESTINE (2) Status post right hemicolectomy Code(s): Z90.49 - ACQUIRED ABSENCE OF OTHER SPECIFIED PARTS OF DIGESTIVE TRACT (3) HTN (hypertension) Code(s): I10 - ESSENTIAL (PRIMARY) HYPERTENSION (4) Hypothyroidism Code(s): E03.9 - HYPOTHYROIDISM, UNSPECIFIED (5) Hyperlipidemia Code(s): E78.5 - HYPERLIPIDEMIA, UNSPECIFIED
--- NOTE | 2019-05-21 13:43 | CONSULT ---
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 Post-op he had new- onset BLE weakness, more proximally. Ortho was consulted, who recommended NSAID if possible, Rheum consult for gout, and PT (WBAT BLE). Rheum was consulted, who on 05/20/19 performed L knee aspiration and cortisone injection, with plan to possibly perform on R if needed. Neurology was consulted, who recommended MRI TL spine without contrast to evaluate for cord pathology; EMG BLE was ordered as well. PT evaluated him 05/20/19, at which time he was MOderate Assist x2 people in Transfers, and ambulated 25ft Moderate Assist x2 people with Rolling Walker. NGT was placed as well due to SBO. Physiatry was requested to perform EMG BLE to evaluate for radiculopathy, myopathy, demyeinating disease, and peripheral neuropathy. - Past Medical History Cardio/Vascular: Yes: AFIB (paroxysmal not on AC ), HTN, Hyperlipdemia Renal/: Yes: BPH - Past Surgical History Past Surgical History: Yes: Cataract Removal, TURP - Alcohol/Substance Use Hx Alcohol Use: No - Smoking History Smoking history: Never smoked Have you smoked in the past 12 months: No - Social History Usual Living Arrangement: Alone (in apartment with 1 step to elevator) ADL: Independent Home Medications - Allergies Allergies/Adverse Reactions: Allergies Allergy/AdvReac Type Severity Reaction Status Date / Time No Known Drug Allergies Allergy Verified 05/15/19 08:16 - Home Medications Home Medications: Ambulatory Orders Amlodipine Besylate [Norvasc -] 10 mg PO DAILY 10/06/12 Levothyroxine [Synthroid -] 125 mcg PO DAILY 10/06/12 Metoprolol Succinate [Toprol XL -] 50 mg PO DAILY 10/06/12 Hydrochlorothiazide [Hctz -] 25 mg PO DAILY 05/14/19 Losartan Potassium 100 mg PO DAILY 05/15/19 Family Disease History - Family Disease History Family Disease History: Other: Brother (Gout) Review of Systems Findings/Remarks: Denies fevers, chills, changes in vision/ hearing/ mood, CP, SOB, constipation, diarrhea, dysuria, numbness/ paresthesias, or muscle/ joint pain. Notes abdominal discomfort with nausea, NGT uncomfortable, and BLE weakness especially in the hips. Physical Exam Vital Signs: Vital Signs Temperature 98.9 F 05/21/19 09:00 Pulse Rate 95 H 05/21/19 09:00 Respiratory Rate 20 05/21/19 09:00 Blood Pressure 121/70 05/21/19 09:00 O2 Sat by Pulse Oximetry (%) 97 05/21/19 09:00 Musculoskeletal: Yes: Other (General: calm elderly AAM sitting in bed NAD with NGT in place N/M: 3/5 B HF, 4/5 B KE then 5-/5 BLE; Pinprick Intact BLE. No BLE pitting edema no B calf tenderness.) Labs: CBC, BMP 05/21/19 07:24 05/21/19 07:24 Assessment/Plan Electrodiagnostics were performed, please see scanned pages for details. Please note that often EMG is scanned under date of admission. 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 There is no evidence of myopathy or sensory involvement. Impression: 1) Deficits mobility/ ADLs 2) Deconditioning 3) Gait abnormality 4) 05/15/19 hemicolectomy 2/2 tumor c/b post-op SBO 5) BLE weakness with mild neuropathy and B S1 radiculopathy 6) B knee gout flare s/p 05/20/19 L knee aspiration and cortisone injection by Rheum 7) hx A fib, HTN, HLD 8) hx BPH s/p TURB 9) hx arthritis 10) preDM 11) Hypothyroidism 12) Obesity 13) Up to date flu shot, no documented pneumovax Recommendations: 1) PT for stetching strengthening ROM and functional mobility 2) Falls, safety precautions 3) Cardiac, diabetic precautions 4) DVT ppx: on hep sc 5) Skin protection: float heels, frequent turning 6) Nutrition consult once diet advanced for obesity 7) Follow-up TL MRI results 8) Continue plan per Neuro/ primary team 9) Discharge planning: pt is motivated to get better. Given prior level of functioning, he would benefit from and can tolerate acute rehabilitation once medically stable. Thank you for this referral.
--- NOTE | 2019-05-21 14:30 | PN ---
Progress Note (short form) - Note Progress Note: ID consult dictated imp/reccd 68 yo man admitted 05/15 for right hemicolectomy asked to see for post op fevers fevers bilateral knee pain- gout SBO POD #6 s/p right hemicolectomy DOMINIQUE atelectasis f/u cultures continue rocephin for now fevers may all be due to gout surgical f/u SBO IVF renal to see encourage incentive spirometry Problem List - Problems (1) Postoperative fever Code(s): R50.82 - POSTPROCEDURAL FEVER (2) Bilateral knee effusions Code(s): M25.461 - EFFUSION, RIGHT KNEE; M25.462 - EFFUSION, LEFT KNEE (3) Gout Code(s): M10.9 - GOUT, UNSPECIFIED (4) SBO (small bowel obstruction) Code(s): K56.609 - UNSP INTESTNL OBST, UNSP TO PARTIAL VERSUS COMPLETE OBST (5) DOMINIQUE (acute kidney injury) Code(s): N17.9 - ACUTE KIDNEY FAILURE, UNSPECIFIED (6) Status post right hemicolectomy Code(s): Z90.49 - ACQUIRED ABSENCE OF OTHER SPECIFIED PARTS OF DIGESTIVE TRACT
--- NOTE | 2019-05-21 15:37 | CONS ---
INFECTIOUS DISEASE CONSULTATION DATE OF CONSULTATION: DATE OF DICTATION: 05/21/2019 REQUESTING PHYSICIAN: Dr. Monae This is a 68-year-old man who was admitted electively on May 15, and he underwent a right hemicolectomy. He had been found to have an ascending colon mass, 6 cm. Biopsy showed adenoma. I am asked to see him for postoperative fevers. He has postoperatively had some intermittent low-grade fevers that were as high as 101 yesterday. Over the last 2 days, he has also had several episodes of vomiting, and he is currently n.p.o. An NG tube has been placed, and on CAT scan, he has findings consistent with a small-bowel obstruction. Of note, he has complained of pain in his knees, left greater than right. He was seen by Rheumatology yesterday. He had an arthrocentesis and was noted to have gout. He reports his knee pain is improved today. He currently has an NG tube and has no other complaints. PAST MEDICAL HISTORY: Notable for paroxysmal atrial fibrillation, hypertension, hyperlipidemia, gout, hypothyroidism. He has prediabetes. He has BPH. SURGICAL HISTORY: Notable for cataract removal, TURP. SOCIAL HISTORY: There is no history of cigarette or substance use. ALLERGIES: He has no known drug allergies. MEDICATIONS AT HOME: Include Norvasc, Synthroid, Toprol-XL, hydrochlorothiazide, and losartan. REVIEW OF SYSTEMS: He is currently resting comfortably. He wants to sleep as he says, "There is nothing else I can do." He has been evaluated as well for generalized weakness by both Neurology for gait disturbance, and he was noted to have the bilateral knee pain; now, he has positive crystals for gout. He reports his knee pain is improved. He denies any abdominal pain. An NG tube was inserted overnight. He has not vomited since. PHYSICAL EXAMINATION: Vital Signs: T-max is 101; current temperature is 98.9. Pulse is 95. Blood pressure 121/70. Respiratory rate is 20. He is saturating 97% on room air. HEENT: He is normocephalic. His eyes are anicteric. He has an NG tube draining greenish material. Neck: Supple. Lungs: Clear to auscultation. They have diminished breath sounds at the bases. Heart: Regular rate and rhythm. Abdomen: Distended. He has minimal bowel sounds. He has a midline vertical, small in above his umbilicus, without any drainage or erythema. Extremities: Without any edema or phlebitis. LABORATORY DATA: Labs are notable for white count of 13, hemoglobin 11.6. BUN is 56 and creatinine 1.8. LFTs are normal. CK is 332. Urinalysis has 2 white cells. His tap of his knee shows monosodium urate crystals consistent with gout. Urine and blood cultures are pending. Chest x-ray reveals NG tube, some atelectatic changes at the left base. He had an abdominal x-ray done today, that is notable for retained contrast, distended bowel. He had a CAT scan performed yesterday, that is notable for right hemicolectomy with small-bowel obstruction. In summary, this is a 68-year-old man with: 1. Postoperative fever. He is now on ceftriaxone day 2, which was started empirically yesterday. CAT scan is notable for small-bowel obstruction. Suspect his fever could be partially due to his gout. Cultures are pending; so, would continue ceftriaxone until the cultures are back. 2. Small-bowel obstruction, status post right hemicolectomy. Management per Surgery. 3. Acute renal failure. Would continue hydration and follow up with Renal has been requested. So, would suggest for now that we continue the Rocephin as his fevers have resolved. Cultures are negative, may well be able to stop antibiotics as his fevers could have all been inflammatory secondary to his gout. Would encourage incentive spirometry as he has some evidence of atelectasis on x-ray and management of his abdomen per Surgery. PAMELA VILLANUEVA M.D. [id number]
--- NOTE | 2019-05-21 18:24 | CONSULT ---
Consult Consult Specialty:: Nephrology Reason for Consultation:: DOMINIQUE - History of Present Illness Chief Complaint: admitted for hemicolectomy History of Present Illness: Pt is a 68 year old male with pmhx of a-fib, htn, hld, bph, arthritis, and preDM who presented to the hospital for a hemiclectomy for GI adenoca. He had lower ext weakness post op. He was also found to have SBO. He developed worsening renal failure and I was called to evaluate him. He denies history of CKD. He has a NG tube and feels that it is uncomfortable. I was called to evaluate him for DOMINIQUE. - History Source History Provided By: Patient, Medical Record - Past Medical History Cardio/Vascular: Yes: AFIB (paroxysmal not on AC ), HTN, Hyperlipdemia Renal/: Yes: BPH - Past Surgical History Past Surgical History: Yes: Cataract Removal, TURP - Alcohol/Substance Use Hx Alcohol Use: No - Smoking History Smoking history: Never smoked Have you smoked in the past 12 months: No - Social History Usual Living Arrangement: Alone (in apartment with 1 step to elevator) ADL: Independent Home Medications - Allergies Allergies/Adverse Reactions: Allergies Allergy/AdvReac Type Severity Reaction Status Date / Time No Known Drug Allergies Allergy Verified 05/15/19 08:16 - Home Medications Home Medications: Ambulatory Orders Amlodipine Besylate [Norvasc -] 10 mg PO DAILY 10/06/12 Levothyroxine [Synthroid -] 125 mcg PO DAILY 10/06/12 Metoprolol Succinate [Toprol XL -] 50 mg PO DAILY 10/06/12 Hydrochlorothiazide [Hctz -] 25 mg PO DAILY 05/14/19 Losartan Potassium 100 mg PO DAILY 05/15/19 Family Disease History - Family Disease History Family Disease History: Other: Brother (Gout) Review of Systems - Review of Systems Constitutional: reports: Malaise Eyes: reports: No Symptoms HENT: reports: No Symptoms Cardiovascular: reports: No Symptoms Respiratory: reports: No Symptoms Gastrointestinal: reports: Abdominal Pain Genitourinary: reports: No Symptoms Musculoskeletal: reports: Muscle Weakness Neurological: reports: No Symptoms Endocrine: reports: No Symptoms Hematology/Lymphatic: reports: No Symptoms Psychiatric: reports: No Symptoms Physical Exam Vital Signs: Vital Signs Temperature 98.3 F 05/21/19 18:16 Pulse Rate 87 05/21/19 18:16 Respiratory Rate 20 05/21/19 18:16 Blood Pressure 126/81 05/21/19 18:16 O2 Sat by Pulse Oximetry (%) 97 05/21/19 09:00 Constitutional: Yes: Calm Eyes: Yes: Conjunctiva Clear HENT: Yes: Atraumatic Neck: Yes: Supple Cardiovascular: Yes: S1, S2 Respiratory: Yes: CTA Bilaterally Gastrointestinal: No: Tenderness Renal/: Yes: WNL Musculoskeletal: Yes: Muscle Weakness Edema: No Neurological: Yes: Oriented Labs: CBC, BMP 05/21/19 07:24 05/21/19 07:24 Laboratory Tests 05/17/19 05/18/19 05/19/19 10:47 11:07 06:38 Sodium Creatinine 1.2 1.3 1.4 H Urine Protein Urine Blood GRETA Screen 05/19/19 05/20/19 05/21/19 18:20 11:30 06:00 Sodium Creatinine 1.5 H 2.0 H Urine Protein 1+ H Urine Blood Negative GRETA Screen 05/21/19 05/21/19 07:24 07:24 Sodium 134 L Creatinine 1.8 H Urine Protein Urine Blood GRETA Screen Pending Imaging - Results Chest X-ray: Report Reviewed Cat Scan: Report Reviewed Problem List - Problems (1) DOMINIQUE (acute kidney injury) Code(s): N17.9 - ACUTE KIDNEY FAILURE, UNSPECIFIED (2) HTN (hypertension) Code(s): I10 - ESSENTIAL (PRIMARY) HYPERTENSION (3) Hyperlipidemia Code(s): E78.5 - HYPERLIPIDEMIA, UNSPECIFIED Assessment/Plan Current Medications Generic Name Dose Route Start Last Admin Trade Name See PRN Reason Stop Dose Admin Acetaminophen 1,000 mg 05/17/19 09:08 05/20/19 16:37 Ofirmev Injection - IVPB 1,000 mg Q6H PRN Administration PAIN LEVEL 1-5 OR FEVER Diphenhydramine HCl 12.5 mg 05/15/19 14:58 Benadryl Injection - IVPUSH ONCE PRN FOR ITCHING Fentanyl 50 mcg 05/15/19 14:24 05/15/19 14:40 Sublimaze Injection - IVPUSH 50 mcg [id number] PRN Administration PAIN-PACU ORDER X 4 DOSES ONLY Heparin Sodium (Porcine) 5,000 unit 05/16/19 11:45 05/21/19 11:15 Heparin - SQ 5,000 unit BID [facility] Administration Hydromorphone HCl 2 mg 05/18/19 10:56 Dilaudid Vial - IM Q8H PRN PAIN LEVEL 6-10 Sodium Chloride 1,000 mls @ 83 mls/hr 05/19/19 12:00 05/21/19 06:19 1/2 Normal Saline IV 83 mls/hr ASDIR DLOORES Administration Ceftriaxone Sodium 1 gm/ 50 mls @ 100 mls/hr 05/20/19 22:45 05/21/19 11:16 Dextrose IVPB 100 mls/hr DAILY [facility] Administration Levothyroxine Sodium 125 mcg 05/17/19 09:15 05/21/19 06:01 Synthroid - PO Not Given DAILY@0700 [facility] Metoprolol Succinate 50 mg 05/17/19 10:00 05/21/19 11:17 Toprol Xl - PO Not Given DAILY [facility] Ondansetron HCl 4 mg 05/15/19 14:24 05/19/19 06:26 Zofran Injection IVPUSH 4 mg Q6H PRN Administration NAUSEA AND/OR VOMITING Promethazine HCl 12.5 mg 05/15/19 14:58 05/20/19 18:33 Phenergan Injection - IVPB 12.5 mg Q6H PRN Administration NAUSEA AND/OR VOMITING Impression 1. DOMINIQUE 2. SBO 3. colon adenoca 4. s/p hemicolectomy 5. HTN 6. a-fib Plan - check renal ultrasound - send ua - check urine lytes and urine manager report - monitor bp - cont to monitor renal function - avoid nsaids
--- NOTE | 2019-05-21 18:38 | PN ---
Progress Note (short form) - Note Progress Note: 68 yrs old male with PMH of HTN , prediabetes, BPH, arthritis, hyperlipidemia, hypothyroidism found to have ascending colon mass - 6 cm , biopsy showed adenoma. He underwent right hemicolectomy POD#5. experienced weakness of legs post surgery, L >R. Seen by orthopedics, thought to have inflammatory arthritis-the orthopedic service was consulted for bilateral knee pain. There was no specific injury. The patient notes pain and swelling. Denies any other injuries. Denies numbness , tingling or other constitutional complaints. Denies/Endorses tobacco use, drug use, alcohol abuse. The patient uses no assistive devices at baseline. Patient states he has a history of Gout. Patient states he had a fever earlier, but is currently afebrile. Mr. Hardy reports he has not been able to stand since his surgery, attributes it to bilat. knee pain. Denies back pain, numbness, bladder disturbance. Nursing attempted to get him out of bed he is not able to stand. FU : reviewed MRI Spine --no sig pathology, DJD ; EMG mild neuropathy 05/21 exam appears stronger atleast 4/5 L IP, R IP 4+/5, quads/hams 5/5, Ta 5 /5 05/20/19 exam : weakness LE, R IP 3/5, 2/5 L, Quads R 4/5, L 3/5 , TA R 5/5 and L 4+/5, R hams 4+/5 and L 4/5 ; UE 5/5 patellar 1+ and Achilles 1+ ; no sensory level, Prop intact, - Past Medical History Cardio/Vascular: Yes: AFIB (paroxysmal not on AC ), HTN, Hyperlipdemia Renal/: Yes: BPH - Past Surgical History Past Surgical History: Yes: Cataract Removal, TURP - Alcohol/Substance Use Hx Alcohol Use: No - Smoking History Smoking history: Never smoked Have you smoked in the past 12 months: No Home Medications - Allergies Allergies/Adverse Reactions: Allergies Allergy/AdvReac Type Severity Reaction Status Date / Time No Known Drug Allergies Allergy Verified 05/15/19 08:16 - Home Medications Home Medications: Ambulatory Orders Amlodipine Besylate [Norvasc -] 10 mg PO DAILY 10/06/12 Levothyroxine [Synthroid -] 125 mcg PO DAILY 10/06/12 Metoprolol Succinate [Toprol XL -] 50 mg PO DAILY 10/06/12 Hydrochlorothiazide [Hctz -] 25 mg PO DAILY 05/14/19 Losartan Potassium 100 mg PO DAILY 05/15/19 Physical Exam-Neuro Vital Signs: Vital Signs Temperature 98.3 F 05/21/19 18:16 Pulse Rate 87 05/21/19 18:16 Respiratory Rate 20 05/21/19 18:16 Blood Pressure 126/81 05/21/19 18:16 O2 Sat by Pulse Oximetry (%) 97 05/21/19 09:00 Labs: CBCD WBC 14.7 K/mm3 (4.0-10.0) H 05/19/19 18:20 RBC 4.39 M/mm3 (4.00-5.60) 05/19/19 18:20 Hgb 11.9 GM/dL (11.7-16.9) 05/19/19 18:20 Hct 37.4 % (35.4-49) 05/19/19 18:20 MCV 85.2 fl (80-96) 05/19/19 18:20 MCHC 31.9 g/dl (32.0-35.9) L 05/19/19 18:20 RDW 14.2 % (11.9-15.9) 05/19/19 18:20 Plt Count 186 K/MM3 (134-434) 05/19/19 18:20 MPV 9.6 fl (7.5-11.1) 05/19/19 18:20 CMP Sodium 136 mmol/L (136-145) 05/19/19 18:20 Potassium 4.2 mmol/L (3.5-5.1) 05/19/19 18:20 Chloride 101 mmol/L (98-107) 05/19/19 18:20 Carbon Dioxide 28 mmol/L (21-32) 05/19/19 18:20 Anion Gap 8 MMOL/L (8-16) 05/19/19 18:20 BUN 30.3 mg/dL (7-18) H 05/19/19 18:20 Creatinine 1.5 mg/dL (0.55-1.3) H 05/19/19 18:20 Calcium 9.6 mg/dL (8.5-10.1) 05/19/19 18:20 Total Bilirubin 0.8 mg/dL (0.2-1) 05/19/19 06:38 AST 19 U/L (15-37) 05/19/19 06:38 ALT 18 U/L (13-61) 05/19/19 06:38 Alkaline Phosphatase 82 U/L (45-117) 05/19/19 06:38 Total Protein 6.9 g/dl (6.4-8.2) 05/19/19 06:38 Albumin 2.8 g/dl (3.4-5.0) L 05/19/19 06:38 - Neuro Exam Mini Mental Exam: intact DTR's: 0 Left Brachioradialis, 0 Right Brachioradialis, 0 Left Achilles, 0 Right Achilles (Bilat knee jerks-1+), 1+ Left Bicep, 1+ Right Bicep, 1+ Left Tricep, 1+ Right Tricep Babinski: Absent Response to light touch: Normal Motor Strength: 3/5: Left Leg, Right Leg (Both I/P/Q/H-3/5, Ankle DF/PF-5/5. No thigh muscle tenderness), 5/5: Left Arm, Right Arm Gait: Other (Unable to stand.) Assessment/Plan Pt. with bilat LE weakness, ayssmetric papraplegia L >R, post hemicolectomy ; no sensory sx/sx,appears to be of the lower motor neuron type. anterior spinal cord infarct /myelitis in differential vs asymmetric radiculopathy (less likely); ? focal entrapment of LS plexus post surgery, vs less likely neuropathy ( this is unusual for GBS, preserved reflexes) vs myopathy (though acute uncommon and CPK WNL) suspect postional deconditioning, exam improving MRI T and LS spine witH MANN; no sig pathology reviewed EMG LE, mild neuropathy, no evidence of a myopathy FU CPK, TSH , A1c, GRETA, ESR, B12, b1.--reviewed and will FU replete B12 acute rehab when stable DR COX
--- NOTE | 2019-05-21 19:32 | PN ---
Progress Note, Physician - Current Medication List Current Medications: Active Medications Acetaminophen (Ofirmev Injection -) 1,000 mg IVPB Q6H PRN PRN Reason: PAIN LEVEL 1-5 OR FEVER Last Admin: 05/20/19 16:37 Dose: 1,000 mg Diphenhydramine HCl (Benadryl Injection -) 12.5 mg IVPUSH ONCE PRN PRN Reason: FOR ITCHING Fentanyl (Sublimaze Injection -) 50 mcg IVPUSH [id number] PRN PRN Reason: PAIN-PACU ORDER X 4 DOSES ONLY Last Admin: 05/15/19 14:40 Dose: 50 mcg Heparin Sodium (Porcine) (Heparin -) 5,000 unit SQ BID [facility] Last Admin: 05/21/19 11:15 Dose: 5,000 unit Hydromorphone HCl (Dilaudid Vial -) 2 mg IM Q8H PRN PRN Reason: PAIN LEVEL 6-10 Sodium Chloride (1/2 Normal Saline) 1,000 mls @ 83 mls/hr IV ASDIR [facility] Last Admin: 05/21/19 06:19 Dose: 83 mls/hr Ceftriaxone Sodium 1 gm/ (Dextrose) 50 mls @ 100 mls/hr IVPB DAILY [facility] Last Admin: 05/21/19 11:16 Dose: 100 mls/hr Levothyroxine Sodium (Synthroid -) 125 mcg PO DAILY@0700 [facility] Last Admin: 05/21/19 06:01 Dose: Not Given Metoprolol Succinate (Toprol Xl -) 50 mg PO DAILY [facility] Last Admin: 05/21/19 11:17 Dose: Not Given Ondansetron HCl (Zofran Injection) 4 mg IVPUSH Q6H PRN PRN Reason: NAUSEA AND/OR VOMITING Last Admin: 05/19/19 06:26 Dose: 4 mg Promethazine HCl (Phenergan Injection -) 12.5 mg IVPB Q6H PRN PRN Reason: NAUSEA AND/OR VOMITING Last Admin: 05/20/19 18:33 Dose: 12.5 mg - Objective Vital Signs: Vital Signs Temperature 98.3 F 05/21/19 18:16 Pulse Rate 87 05/21/19 18:16 Respiratory Rate 20 05/21/19 18:16 Blood Pressure 126/81 05/21/19 18:16 O2 Sat by Pulse Oximetry (%) 97 05/21/19 09:00 Labs: CBC, BMP 05/21/19 07:24 05/21/19 07:24 Assessment/Plan Surgery" patient is comfortable. Abomen is soft, not distended, no abdominal pain. Abdominal Xray, contrast in colon, no anastamotic obstruction. Repeat abdominal X-ray tomorrow. Continue nasogastric aspiration for now.
[2019-05-22 04:19] LABS: PH,URINE 5.5 (5.0-8.0); URINE APPEARANCE CLEAR; URINE BILIRUBIN NEGATIVE (NEGATIVE); URINE COLOR YELLOW; URINE GLUCOSE (UA) NEGATIVE (NEGATIVE); URINE KETONE NEGATIVE (NEGATIVE); URINE LEUK ESTERASE NEGATIVE (NEGATIVE); URINE NITRITE NEGATIVE (NEGATIVE); URINE PROTEIN TRACE (NEGATIVE); URINE UROBILINOGEN 0.2 mg/dL (0.2-1.0)
[2019-05-22] MEDS: LEVOTHYROXINE NA 125 MCG TABLET (FP) PO SCH (06:09)
[2019-05-22 08:02] LABS: BASO % 0.2 % (0-2.0); EOS % 0.2 % (0-4.5); HEMATOCRIT 37.1 % (35.4-49); HEMOGLOBIN 12.2 GM/dL (11.7-16.9); LYMPH % 7.7 % (8-40); MCH 27.7 pg (25.7-33.7); MCHC 32.9 g/dl (32.0-35.9); MEAN CELL VOLUME 84.3 fl (80-96); MEAN PLT VOLUME 9.5 fl (7.5-11.1); MONO % 15.4 % (3.8-10.2); NEUT % 76.5 % (42.8-82.8); PLATELET COUNT 196 K/MM3 (134-434); RDW 13.9 % (11.9-15.9); WHITE BLOOD COUNT 13.7 K/mm3 (4.0-10.0)
[2019-05-22 08:08] LABS: ALBUMIN 2.4 g/dl (3.4-5.0); BILIRUBIN,TOTAL 0.5 mg/dL (0.2-1); BLOOD UREA NITROGEN 49.6 mg/dL (7-18); CALCIUM 8.8 mg/dL (8.5-10.1); CREATININE 1.3 mg/dL (0.55-1.3); POTASSIUM 4.2 mmol/L (3.5-5.1); TOT PROT 6.1 g/dl (6.4-8.2)
--- NOTE | 2019-05-22 09:36 | PN ---
Progress Note (short form) - Note Progress Note: pt seen/ examined chart reviewed all f/u noted better moving legs-- able to lift denies pain afebrile passing gas Active Medications Acetaminophen (Ofirmev Injection -) 1,000 mg IVPB Q6H PRN PRN Reason: PAIN LEVEL 1-5 OR FEVER Last Admin: 05/20/19 16:37 Dose: 1,000 mg Diphenhydramine HCl (Benadryl Injection -) 12.5 mg IVPUSH ONCE PRN PRN Reason: FOR ITCHING Fentanyl (Sublimaze Injection -) 50 mcg IVPUSH [id number] PRN PRN Reason: PAIN-PACU ORDER X 4 DOSES ONLY Last Admin: 05/15/19 14:40 Dose: 50 mcg Heparin Sodium (Porcine) (Heparin -) 5,000 unit SQ BID [facility] Last Admin: 05/21/19 21:19 Dose: 5,000 unit Hydromorphone HCl (Dilaudid Vial -) 2 mg IM Q8H PRN PRN Reason: PAIN LEVEL 6-10 Sodium Chloride (1/2 Normal Saline) 1,000 mls @ 83 mls/hr IV ASDIR [facility] Last Admin: 05/21/19 21:19 Dose: Not Given Ceftriaxone Sodium 1 gm/ (Dextrose) 50 mls @ 100 mls/hr IVPB DAILY [facility] Last Admin: 05/21/19 11:16 Dose: 100 mls/hr Levothyroxine Sodium (Synthroid -) 125 mcg PO DAILY@0700 [facility] Last Admin: 05/22/19 06:09 Dose: Not Given Metoprolol Succinate (Toprol Xl -) 50 mg PO DAILY [facility] Last Admin: 05/21/19 11:17 Dose: Not Given Ondansetron HCl (Zofran Injection) 4 mg IVPUSH Q6H PRN PRN Reason: NAUSEA AND/OR VOMITING Last Admin: 05/19/19 06:26 Dose: 4 mg Promethazine HCl (Phenergan Injection -) 12.5 mg IVPB Q6H PRN PRN Reason: NAUSEA AND/OR VOMITING Last Admin: 05/20/19 18:33 Dose: 12.5 mg Vital Signs Temp 98.1 F 05/21/19 21:18 Pulse 95 H 05/21/19 21:18 Resp 20 05/21/19 21:18 BP 137/95 05/21/19 21:18 Pulse Ox 97 05/21/19 21:00 Intake & Output 05/21/19 05/21/19 05/22/19 11:59 23:59 11:59 Intake Total 900 1179 664 Output Total 800 2240 970 Balance 100 -1061 -306 Intake: IV 800 1079 664 1/2 Normal Saline 1,422 219 9855 664 ml @ 83 mls/hr IV ASDIR DOLORES Rx#:[id number] IVPB 100 100 Output: Gastric Drainage 400 Drainage 1000 400 NG tuve 1000 400 Urine 400 1240 570 Void 400 1240 570 Other: Voiding Method Urinal Urinal # Unmeasured Voids Void 1 1 Bowel Movement No Yes # Bowel Movements 1 CBC, BMP 05/22/19 05:30 05/22/19 05:30 Microbiology 05/20/19 22:30 Blood Culture - Preliminary Blood - Peripheral Venous NO GROWTH OBTAINED AFTER 24 HOURS, INCUBATION TO CONTINUE FOR 4 DAYS. 05/20/19 22:30 Blood Culture - Preliminary Blood - Peripheral Venous NO GROWTH OBTAINED AFTER 24 HOURS, INCUBATION TO CONTINUE FOR 4 DAYS. 05/20/19 17:00 Gram Stain - Final Synovial Fluid - Knee 05/17/19 10:55 Blood Culture - Preliminary Blood - Peripheral Venous NO GROWTH OBTAINED AFTER 96 HOURS, INCUBATION TO CONTINUE FOR 1 DAYS. 05/17/19 10:47 Blood Culture - Preliminary Blood - Peripheral Venous NO GROWTH OBTAINED AFTER 96 HOURS, INCUBATION TO CONTINUE FOR 1 DAYS. Physical Exam. awake/ comfortable. ngt + S1 S2 RRR Lungs-- decreased at bases Abd- soft, NT, bs + trace edema PLAN s/p hemicolectomy, BSO --NPO --IV fluids -- abd xray -- f/u today -- NG suction -- CXR -- no infiltrates -- Monitor temp --CBC --wbc trending down -- ID eval --cultures redrawn -- started empiric ceftriaxone --acute gout-->urate crystals on tap weakness of legs-- better Acute renal failure -- on iv fluids-- resolving DVT prophylaxis-- Heparin sc rheumatology eval noted, PT Will follow Problem List - Problems (1) Colonic mass Code(s): K63.89 - OTHER SPECIFIED DISEASES OF INTESTINE (2) Status post right hemicolectomy Code(s): Z90.49 - ACQUIRED ABSENCE OF OTHER SPECIFIED PARTS OF DIGESTIVE TRACT (3) HTN (hypertension) Code(s): I10 - ESSENTIAL (PRIMARY) HYPERTENSION (4) Hypothyroidism Code(s): E03.9 - HYPOTHYROIDISM, UNSPECIFIED (5) Hyperlipidemia Code(s): E78.5 - HYPERLIPIDEMIA, UNSPECIFIED
[2019-05-22] MEDS ORDERED: cefTRIAXone SODIUM 1 GM VIAL ONE (11:23)
[2019-05-22] MEDS ORDERED: DEXTROSE 5%-WATER - 50 ML IVPB ONE (11:24)
[2019-05-22] MEDS: HEPARIN NA (PORCINE) 5,000 UNITS/ML 1ML VIAL SQ SCH ×2 (11:33→21:26)
[2019-05-22] MEDS: CEFTRIAXONE 1 GM in DEXTROSE 5%-WATER - 50 ML IVPB SCH (11:33)
--- NOTE | 2019-05-22 12:41 | PN ---
Progress Note, Physician - Current Medication List Current Medications: Active Medications Acetaminophen (Ofirmev Injection -) 1,000 mg IVPB Q6H PRN PRN Reason: PAIN LEVEL 1-5 OR FEVER Last Admin: 05/20/19 16:37 Dose: 1,000 mg Diphenhydramine HCl (Benadryl Injection -) 12.5 mg IVPUSH ONCE PRN PRN Reason: FOR ITCHING Fentanyl (Sublimaze Injection -) 50 mcg IVPUSH [id number] PRN PRN Reason: PAIN-PACU ORDER X 4 DOSES ONLY Last Admin: 05/15/19 14:40 Dose: 50 mcg Heparin Sodium (Porcine) (Heparin -) 5,000 unit SQ BID [facility] Last Admin: 05/22/19 11:33 Dose: 5,000 unit Sodium Chloride (1/2 Normal Saline) 1,000 mls @ 83 mls/hr IV ASDIR [facility] Last Admin: 05/21/19 21:19 Dose: Not Given Ceftriaxone Sodium 1 gm/ (Dextrose) 50 mls @ 100 mls/hr IVPB DAILY [facility] Last Admin: 05/22/19 11:33 Dose: 100 mls/hr Levothyroxine Sodium (Synthroid -) 125 mcg PO DAILY@0700 [facility] Last Admin: 05/22/19 06:09 Dose: Not Given Metoprolol Succinate (Toprol Xl -) 50 mg PO DAILY [facility] Last Admin: 05/22/19 11:33 Dose: Not Given Ondansetron HCl (Zofran Injection) 4 mg IVPUSH Q6H PRN PRN Reason: NAUSEA AND/OR VOMITING Last Admin: 05/19/19 06:26 Dose: 4 mg Promethazine HCl (Phenergan Injection -) 12.5 mg IVPB Q6H PRN PRN Reason: NAUSEA AND/OR VOMITING Last Admin: 05/20/19 18:33 Dose: 12.5 mg - Objective Vital Signs: Vital Signs Temperature 98.1 F 05/21/19 21:18 Pulse Rate 95 H 05/21/19 21:18 Respiratory Rate 20 05/21/19 21:18 Blood Pressure 137/95 05/21/19 21:18 O2 Sat by Pulse Oximetry (%) 97 05/21/19 21:00 Labs: CBC, BMP 05/22/19 05:30 05/22/19 05:30 Assessment/Plan Surgery : Patient has no abdominal pain : Abdomen is oft not tender. He is passing flatus. Abdominal X-ray shows oral contrast in the transverse and descending colon , there is one loop of small bowel which is dilated. NG drainage 400 ml. Will D/C ngtube and observe . ? Postoperative ilius. If patient remains undistended will resume oral feeding tomorrow. WBC is trending down, [id number].
[2019-05-22 13:00] LABS: ANISOCYTOSIS 2+; MACROCYTOSIS 0; PLATELET ESTIMATE NORMAL; TEAR DROP CELLS 1+; TOXIC GRANULATION 1+
--- NOTE | 2019-05-22 15:29 | PN ---
Progress Note, Physician History of Present Illness: Pt seen and examined at bedside. He is awake and alert. He denies shortness of breath. NG tube has been removed. - Current Medication List Current Medications: Active Medications Acetaminophen (Ofirmev Injection -) 1,000 mg IVPB Q6H PRN PRN Reason: PAIN LEVEL 1-5 OR FEVER Last Admin: 05/20/19 16:37 Dose: 1,000 mg Diphenhydramine HCl (Benadryl Injection -) 12.5 mg IVPUSH ONCE PRN PRN Reason: FOR ITCHING Fentanyl (Sublimaze Injection -) 50 mcg IVPUSH [id number] PRN PRN Reason: PAIN-PACU ORDER X 4 DOSES ONLY Last Admin: 05/15/19 14:40 Dose: 50 mcg Heparin Sodium (Porcine) (Heparin -) 5,000 unit SQ BID [facility] Last Admin: 05/22/19 11:33 Dose: 5,000 unit Sodium Chloride (1/2 Normal Saline) 1,000 mls @ 83 mls/hr IV ASDIR [facility] Last Admin: 05/21/19 21:19 Dose: Not Given Ceftriaxone Sodium 1 gm/ (Dextrose) 50 mls @ 100 mls/hr IVPB DAILY [facility] Last Admin: 05/22/19 11:33 Dose: 100 mls/hr Levothyroxine Sodium (Synthroid -) 125 mcg PO DAILY@0700 [facility] Last Admin: 05/22/19 06:09 Dose: Not Given Metoprolol Succinate (Toprol Xl -) 50 mg PO DAILY [facility] Last Admin: 05/22/19 11:33 Dose: Not Given Ondansetron HCl (Zofran Injection) 4 mg IVPUSH Q6H PRN PRN Reason: NAUSEA AND/OR VOMITING Last Admin: 05/19/19 06:26 Dose: 4 mg Promethazine HCl (Phenergan Injection -) 12.5 mg IVPB Q6H PRN PRN Reason: NAUSEA AND/OR VOMITING Last Admin: 05/20/19 18:33 Dose: 12.5 mg - Objective Vital Signs: Vital Signs Temperature 98.1 F 05/21/19 21:18 Pulse Rate 95 H 05/21/19 21:18 Respiratory Rate 20 05/21/19 21:18 Blood Pressure 137/95 05/21/19 21:18 O2 Sat by Pulse Oximetry (%) 97 05/21/19 21:00 Constitutional: Yes: Calm Eyes: Yes: Conjunctiva Clear HENT: Yes: Atraumatic Neck: Yes: Supple Cardiovascular: Yes: S1, S2 Respiratory: Yes: CTA Bilaterally Gastrointestinal: Yes: Other (dressing in place) Genitourinary: Yes: WNL Musculoskeletal: Yes: WNL Edema: No Neurological: Yes: Oriented Psychiatric: Yes: Oriented Labs: CBC, BMP 05/22/19 05:30 05/22/19 05:30 Problem List - Problems (1) DOMINIQUE (acute kidney injury) Code(s): N17.9 - ACUTE KIDNEY FAILURE, UNSPECIFIED (2) HTN (hypertension) Code(s): I10 - ESSENTIAL (PRIMARY) HYPERTENSION (3) Hyperlipidemia Code(s): E78.5 - HYPERLIPIDEMIA, UNSPECIFIED Assessment/Plan Current Medications Generic Name Dose Route Start Last Admin Trade Name Freq PRN Reason Stop Dose Admin Acetaminophen 1,000 mg 05/17/19 09:08 05/20/19 16:37 Ofirmev Injection - IVPB 1,000 mg Q6H PRN Administration PAIN LEVEL 1-5 OR FEVER Diphenhydramine HCl 12.5 mg 05/15/19 14:58 Benadryl Injection - IVPUSH ONCE PRN FOR ITCHING Fentanyl 50 mcg 05/15/19 14:24 05/15/19 14:40 Sublimaze Injection - IVPUSH 50 mcg [id number] PRN Administration PAIN-PACU ORDER X 4 DOSES ONLY Heparin Sodium (Porcine) 5,000 unit 05/16/19 11:45 05/22/19 11:33 Heparin - SQ 5,000 unit BID [facility] Administration Sodium Chloride 1,000 mls @ 83 mls/hr 05/19/19 12:00 05/21/19 21:19 1/2 Normal Saline IV Not Given ASDIR [facility] Ceftriaxone Sodium 1 gm/ 50 mls @ 100 mls/hr 05/20/19 22:45 05/22/19 11:33 Dextrose IVPB 100 mls/hr DAILY [facility] Administration Levothyroxine Sodium 125 mcg 05/17/19 09:15 05/22/19 06:09 Synthroid - PO Not Given DAILY@0700 [facility] Metoprolol Succinate 50 mg 05/17/19 10:00 05/22/19 11:33 Toprol Xl - PO Not Given DAILY [facility] Ondansetron HCl 4 mg 05/15/19 14:24 05/19/19 06:26 Zofran Injection IVPUSH 4 mg Q6H PRN Administration NAUSEA AND/OR VOMITING Promethazine HCl 12.5 mg 05/15/19 14:58 05/20/19 18:33 Phenergan Injection - IVPB 12.5 mg Q6H PRN Administration NAUSEA AND/OR VOMITING Impression 1. DOMINIQUE 2. SBO 3. colon adenoca 4. s/p hemicolectomy 5. HTN 6. a-fib Plan - renal ultrasound reviewed - renal function is improved - cont fluids while NPO and stop them once he is eating - renal function improved - DOMINIQUE likely from pre-renal disease - avoid nsaids - will follow PRN
--- NOTE | 2019-05-22 16:05 | PN ---
Progress Note (short form) - Note Progress Note: imp/reccd 68 yo man admitted 05/15 for right hemicolectomy asked to see for post op fevers fevers bilateral knee pain- gout SBO POD #6 s/p right hemicolectomy DOMINIQUE atelectasis f/u cultures continue rocephin for now fevers may all be due to gout surgical f/u SBO IVF renal to see encourage incentive spirometry Problem List - Problems (1) Postoperative fever Code(s): R50.82 - POSTPROCEDURAL FEVER (2) Bilateral knee effusions Code(s): M25.461 - EFFUSION, RIGHT KNEE; M25.462 - EFFUSION, LEFT KNEE (3) Gout Code(s): M10.9 - GOUT, UNSPECIFIED (4) SBO (small bowel obstruction) Code(s): K56.609 - UNSP INTESTNL OBST, UNSP TO PARTIAL VERSUS COMPLETE OBST (5) DOMINIQUE (acute kidney injury) Code(s): N17.9 - ACUTE KIDNEY FAILURE, UNSPECIFIED (6) Status post right hemicolectomy Code(s): Z90.49 - ACQUIRED ABSENCE OF OTHER SPECIFIED PARTS OF DIGESTIVE TRACT
[2019-05-23] MEDS: LEVOTHYROXINE NA 125 MCG TABLET (FP) PO SCH (06:27)
[2019-05-23] MEDS: SODIUM CHLORIDE 0.45% 1,000 ML IV SCH ×2 (06:27→17:43)
[2019-05-23] MEDS ORDERED: cefTRIAXone SODIUM 1 GM VIAL ONE (10:17)
[2019-05-23] MEDS ORDERED: DEXTROSE 5%-WATER - 50 ML IVPB ONE (10:17)
[2019-05-23] MEDS: HEPARIN NA (PORCINE) 5,000 UNITS/ML 1ML VIAL SQ SCH (10:41)
[2019-05-23] MEDS: CEFTRIAXONE 1 GM in DEXTROSE 5%-WATER - 50 ML IVPB SCH (10:41)
--- NOTE | 2019-05-23 11:21 | PN ---
Progress Note (short form) - Note Progress Note: afebrile pt still has difficulty ambulating But he wants go home-- does not want rehab unable to get OOB by himself Vital Signs - 24 hr 05/22/19 05/22/19 05/22/19 17:25 19:23 21:00 Temperature 98.2 F 97.8 F Pulse Rate 108 H 101 H Respiratory 20 20 Rate Blood Pressure 125/66 112/68 O2 Sat by Pulse 97 Oximetry (%) 05/23/19 07:03 Temperature 98.2 F Pulse Rate 85 Respiratory 20 Rate Blood Pressure 115/69 O2 Sat by Pulse Oximetry (%) Current Medications Generic Name Dose Route Start Last Admin Trade Name Freq PRN Reason Stop Dose Admin Acetaminophen 650 mg 05/23/19 16:00 Tylenol - PO Q6H PRN PAIN LEVEL 3-6 Diphenhydramine HCl 12.5 mg 05/15/19 14:58 Benadryl Injection - IVPUSH ONCE PRN FOR ITCHING Fentanyl 50 mcg 05/15/19 14:24 05/15/19 14:40 Sublimaze Injection - IVPUSH 50 mcg [id number] PRN Administration PAIN-PACU ORDER X 4 DOSES ONLY Sodium Chloride 1,000 mls @ 83 mls/hr 05/19/19 12:00 05/23/19 06:27 1/2 Normal Saline IV 83 mls/hr ASDIR [facility] Administration Levothyroxine Sodium 125 mcg 05/17/19 09:15 05/23/19 06:27 Synthroid - PO 125 mcg DAILY@0700 [facility] Administration Metoprolol Succinate 50 mg 05/17/19 10:00 05/23/19 10:41 Toprol Xl - PO 50 mg DAILY [facility] Administration Ondansetron HCl 4 mg 05/15/19 14:24 05/19/19 06:26 Zofran Injection IVPUSH 4 mg Q6H PRN Administration NAUSEA AND/OR VOMITING Promethazine HCl 12.5 mg 05/15/19 14:58 05/20/19 18:33 Phenergan Injection - IVPB 12.5 mg Q6H PRN Administration NAUSEA AND/OR VOMITING Laboratory Results - last 24 hr 05/21/19 07:24 GRETA Screen Negative S1 S2 RRR Lungs decreased crackles ABd- soft, NT, distended,no BS trace edema tender B/l knees-->less today restricted movements of B/l legs, B/L knees unable to flex hip joints able to flex knees but with pain no sensory deficits PLAN s/p hemicolectomy, BSO --advance to full liquid diet -- CXR -- no infiltrates Elevated temp-- --CBC --wbc trending down -- ID eval noted --cultures negative -- dc antibiotics -- likely due to acute gout --acute gout-->urate crystals on tap weakness of legs -- EMG noted -- MRI done-- results noted -- continue PT Acute renal failure -- on iv fluids -- azotemia improved DVT prophylaxis-- Heparin sc rheumatology eval noted, he should get intra-articular steroid injection Problem List - Problems (1) Colonic mass Code(s): K63.89 - OTHER SPECIFIED DISEASES OF INTESTINE (2) Status post right hemicolectomy Code(s): Z90.49 - ACQUIRED ABSENCE OF OTHER SPECIFIED PARTS OF DIGESTIVE TRACT (3) HTN (hypertension) Code(s): I10 - ESSENTIAL (PRIMARY) HYPERTENSION (4) Hypothyroidism Code(s): E03.9 - HYPOTHYROIDISM, UNSPECIFIED (5) Hyperlipidemia Code(s): E78.5 - HYPERLIPIDEMIA, UNSPECIFIED
--- NOTE | 2019-05-23 11:26 | PN ---
Progress Note, Physician History of Present Illness: AMBULATORY WITH PT NO COMPLAINTS AFEBRILE WBC 13.7 AZOTEMIA IMPROVED BC (-) - Current Medication List Current Medications: Active Medications Acetaminophen (Ofirmev Injection -) 1,000 mg IVPB Q6H PRN PRN Reason: PAIN LEVEL 1-5 OR FEVER Last Admin: 05/20/19 16:37 Dose: 1,000 mg Diphenhydramine HCl (Benadryl Injection -) 12.5 mg IVPUSH ONCE PRN PRN Reason: FOR ITCHING Fentanyl (Sublimaze Injection -) 50 mcg IVPUSH [id number] PRN PRN Reason: PAIN-PACU ORDER X 4 DOSES ONLY Last Admin: 05/15/19 14:40 Dose: 50 mcg Heparin Sodium (Porcine) (Heparin -) 5,000 unit SQ BID [facility] Last Admin: 05/23/19 10:41 Dose: 5,000 unit Sodium Chloride (1/2 Normal Saline) 1,000 mls @ 83 mls/hr IV ASDIR [facility] Last Admin: 05/23/19 06:27 Dose: 83 mls/hr Ceftriaxone Sodium 1 gm/ (Dextrose) 50 mls @ 100 mls/hr IVPB DAILY [facility] Last Admin: 05/23/19 10:41 Dose: 100 mls/hr Levothyroxine Sodium (Synthroid -) 125 mcg PO DAILY@0700 [facility] Last Admin: 05/23/19 06:27 Dose: 125 mcg Metoprolol Succinate (Toprol Xl -) 50 mg PO DAILY [facility] Last Admin: 05/23/19 10:41 Dose: 50 mg Ondansetron HCl (Zofran Injection) 4 mg IVPUSH Q6H PRN PRN Reason: NAUSEA AND/OR VOMITING Last Admin: 05/19/19 06:26 Dose: 4 mg Promethazine HCl (Phenergan Injection -) 12.5 mg IVPB Q6H PRN PRN Reason: NAUSEA AND/OR VOMITING Last Admin: 05/20/19 18:33 Dose: 12.5 mg - Objective Vital Signs: Vital Signs Temperature 98.2 F 05/23/19 07:03 Pulse Rate 85 05/23/19 07:03 Respiratory Rate 20 05/23/19 07:03 Blood Pressure 115/69 05/23/19 07:03 O2 Sat by Pulse Oximetry (%) 97 05/22/19 21:00 Constitutional: Yes: No Distress Cardiovascular: Yes: Regular Rate and Rhythm, S1, S2 Respiratory: Yes: CTA Bilaterally Gastrointestinal: Yes: Normal Bowel Sounds, Soft. No: Tenderness Edema: LLE: 1+, RLE: 1+ Labs: CBC, BMP 05/22/19 05:30 05/22/19 05:30 Assessment/Plan POST OP FEVER- RESOLVED POD#7 R HEMICOLECTOMY S/P SBO GOUTY ARTHRITIS DOMINIQUE IMPROVED D/C CEFTRIAXONE, OBSERVE
--- NOTE | 2019-05-23 15:20 | PN ---
Progress Note, Physician History of Present Illness: C/O pain in his knees. Denies any abdominal pain Denies any nausea, or vomiting. Abdomen is soft , not distended , not tender. Has had bowel movement. Resume oral feeding. - Current Medication List Current Medications: Active Medications Acetaminophen (Ofirmev Injection -) 1,000 mg IVPB Q6H PRN PRN Reason: PAIN LEVEL 1-5 OR FEVER Last Admin: 05/20/19 16:37 Dose: 1,000 mg Diphenhydramine HCl (Benadryl Injection -) 12.5 mg IVPUSH ONCE PRN PRN Reason: FOR ITCHING Fentanyl (Sublimaze Injection -) 50 mcg IVPUSH [id number] PRN PRN Reason: PAIN-PACU ORDER X 4 DOSES ONLY Last Admin: 05/15/19 14:40 Dose: 50 mcg Sodium Chloride (1/2 Normal Saline) 1,000 mls @ 83 mls/hr IV ASDIR [facility] Last Admin: 05/23/19 06:27 Dose: 83 mls/hr Levothyroxine Sodium (Synthroid -) 125 mcg PO DAILY@0700 [facility] Last Admin: 05/23/19 06:27 Dose: 125 mcg Metoprolol Succinate (Toprol Xl -) 50 mg PO DAILY [facility] Last Admin: 05/23/19 10:41 Dose: 50 mg Ondansetron HCl (Zofran Injection) 4 mg IVPUSH Q6H PRN PRN Reason: NAUSEA AND/OR VOMITING Last Admin: 05/19/19 06:26 Dose: 4 mg Promethazine HCl (Phenergan Injection -) 12.5 mg IVPB Q6H PRN PRN Reason: NAUSEA AND/OR VOMITING Last Admin: 05/20/19 18:33 Dose: 12.5 mg - Objective Vital Signs: Vital Signs Temperature 98.2 F 05/23/19 07:03 Pulse Rate 85 05/23/19 07:03 Respiratory Rate 20 05/23/19 07:03 Blood Pressure 115/69 05/23/19 07:03 O2 Sat by Pulse Oximetry (%) 97 05/22/19 21:00 Labs: CBC, BMP 05/22/19 05:30 05/22/19 05:30 Assessment/Plan No intestinal obstruction. Resume oral feeding.
[2019-05-23] MEDS ORDERED: ACETAMINOPHEN 325 MG TABLET (FP) PO PRN (16:00)
[2019-05-24] MEDS: LEVOTHYROXINE NA 125 MCG TABLET (FP) PO SCH (06:24)
[2019-05-24 07:32] LABS: BASO % 0.3 % (0-2.0); EOS % 1.4 % (0-4.5); HEMATOCRIT 33.9 % (35.4-49); HEMOGLOBIN 11.2 GM/dL (11.7-16.9); LYMPH % 8.8 % (8-40); MCH 27.5 pg (25.7-33.7); MCHC 32.9 g/dl (32.0-35.9); MEAN CELL VOLUME 83.8 fl (80-96); MEAN PLT VOLUME 8.8 fl (7.5-11.1); MONO % 10.2 % (3.8-10.2); NEUT % 79.3 % (42.8-82.8); PLATELET COUNT 218 K/MM3 (134-434); RBC 4.05 M/mm3 (4.00-5.60); RDW 13.9 % (11.9-15.9); WHITE BLOOD COUNT 11.5 K/mm3 (4.0-10.0)
--- NOTE | 2019-05-24 08:59 | PN ---
Progress Note (short form) - Note Progress Note: afebrile pt still has difficulty ambulating But he wants go home-- does not want rehab unable to get OOB by himself Vital Signs - 24 hr 05/23/19 05/24/19 05/24/19 22:00 08:12 10:00 Temperature 98.4 F 98.1 F 97.2 F L Pulse Rate 75 74 78 Respiratory 20 20 18 Rate Blood Pressure 110/58 L 107/67 113/69 Current Medications Generic Name Dose Route Start Last Admin Trade Name Freq PRN Reason Stop Dose Admin Acetaminophen 650 mg 05/23/19 16:00 05/23/19 17:43 Tylenol - PO 650 mg Q6H PRN Administration PAIN LEVEL 3-6 Diphenhydramine HCl 12.5 mg 05/15/19 14:58 Benadryl Injection - IVPUSH ONCE PRN FOR ITCHING Fentanyl 50 mcg 05/15/19 14:24 05/15/19 14:40 Sublimaze Injection - IVPUSH 50 mcg [id number] PRN Administration PAIN-PACU ORDER X 4 DOSES ONLY Sodium Chloride 1,000 mls @ 83 mls/hr 05/19/19 12:00 05/23/19 17:43 1/2 Normal Saline IV Not Given ASDIR [facility] Levothyroxine Sodium 125 mcg 05/17/19 09:15 05/24/19 06:24 Synthroid - PO 125 mcg DAILY@0700 [facility] Administration Metoprolol Succinate 50 mg 05/17/19 10:00 05/24/19 11:06 Toprol Xl - PO 50 mg DAILY [facility] Administration Ondansetron HCl 4 mg 05/15/19 14:24 05/19/19 06:26 Zofran Injection IVPUSH 4 mg Q6H PRN Administration NAUSEA AND/OR VOMITING Promethazine HCl 12.5 mg 05/15/19 14:58 05/20/19 18:33 Phenergan Injection - IVPB 12.5 mg Q6H PRN Administration NAUSEA AND/OR VOMITING Laboratory Results - last 24 hr 05/24/19 05/24/19 06:00 06:00 WBC 11.5 H RBC 4.05 Hgb 11.2 L Hct 33.9 L MCV 83.8 MCH 27.5 MCHC 32.9 RDW 13.9 Plt Count 218 MPV 8.8 Absolute Neuts (auto) 9.1 H Neutrophils % 79.3 Neutrophils % (Manual) 68.0 Band Neutrophils % 8.0 Lymphocytes % 8.8 Lymphocytes % (Manual) 7.0 L Monocytes % 10.2 Monocytes % (Manual) 15 H Eosinophils % 1.4 D Eosinophils % (Manual) 0.0 Basophils % 0.3 Basophils % (Manual) 0.0 Myelocytes % (Man) 0 Promyelocytes % (Man) 0 Blast Cells % (Manual) 0 Nucleated RBC % 0 Metamyelocytes 0 Hypochromia 0 Platelet Estimate Normal Platelet Comment Present Polychromasia 0 Poikilocytosis 1+ Anisocytosis 2+ Microcytosis 1+ Macrocytosis 1+ Target Cells 1+ Ovalocytes 1+ [place] Cells 1+ Acanthocytes (Spur) 1+ Sodium 135 L Potassium 3.9 Chloride 102 Carbon Dioxide 22 Anion Gap 10 BUN 24.3 H Creatinine 1.0 Est GFR (CKD-EPI)AfAm 89.86 Est GFR (CKD-EPI)NonAf 77.54 Random Glucose 85 Calcium 8.4 L Total Bilirubin 0.4 AST 25 ALT 34 Alkaline Phosphatase 72 Total Protein 5.5 L Albumin 2.2 L S1 S2 RRR Lungs decreased crackles ABd- soft, NT, distended,no BS trace edema tender B/l knees-->less today restricted movements of B/l legs, B/L knees unable to flex hip joints able to flex knees but with pain no sensory deficits PLAN s/p hemicolectomy, BSO --advance to full liquid diet -- CXR -- no infiltrates Elevated temp-- --CBC --wbc trending down -- ID eval noted --cultures negative -- dc antibiotics -- likely due to acute gout --acute gout-->urate crystals on tap weakness of legs -- EMG noted -- MRI done-- results noted -- continue PT Acute renal failure -- on iv fluids -- azotemia improved DVT prophylaxis-- Heparin sc rheumatology eval noted, he should get intra-articular steroid injection pt does not want to go to Rehab-- he is a safety risk-- better for him to go rehab Does not have family in [place] Problem List - Problems (1) Colonic mass Code(s): K63.89 - OTHER SPECIFIED DISEASES OF INTESTINE (2) Status post right hemicolectomy Code(s): Z90.49 - ACQUIRED ABSENCE OF OTHER SPECIFIED PARTS OF DIGESTIVE TRACT (3) HTN (hypertension) Code(s): I10 - ESSENTIAL (PRIMARY) HYPERTENSION (4) Hypothyroidism Code(s): E03.9 - HYPOTHYROIDISM, UNSPECIFIED (5) Hyperlipidemia Code(s): E78.5 - HYPERLIPIDEMIA, UNSPECIFIED
[2019-05-24 09:10] LABS: ALBUMIN 2.2 g/dl (3.4-5.0); BILIRUBIN,TOTAL 0.4 mg/dL (0.2-1); BLOOD UREA NITROGEN 24.3 mg/dL (7-18); CALCIUM 8.4 mg/dL (8.5-10.1); POTASSIUM 3.9 mmol/L (3.5-5.1); TOT PROT 5.5 g/dl (6.4-8.2)
[2019-05-24 11:26] LABS: ANISOCYTOSIS 2+; MACROCYTOSIS 1+; OVALOCYTE 1+; PLATELET ESTIMATE NORMAL; TARGET CELLS 1+
[2019-05-24] MEDS: SODIUM CHLORIDE 0.45% 1,000 ML IV SCH (23:32)
[2019-05-25] MEDS: LEVOTHYROXINE NA 125 MCG TABLET (FP) PO SCH (06:33)
[2019-05-25 07:47] LABS: BASO % 0.6 % (0-2.0); EOS % 2.2 % (0-4.5); HEMATOCRIT 32.4 % (35.4-49); HEMOGLOBIN 10.8 GM/dL (11.7-16.9); LYMPH % 6.6 % (8-40); MCH 27.7 pg (25.7-33.7); MCHC 33.3 g/dl (32.0-35.9); MEAN CELL VOLUME 83.1 fl (80-96); MEAN PLT VOLUME 8.3 fl (7.5-11.1); MONO % 13.5 % (3.8-10.2); NEUT % 77.1 % (42.8-82.8); PLATELET COUNT 240 K/MM3 (134-434); WHITE BLOOD COUNT 13.4 K/mm3 (4.0-10.0)
[2019-05-25 08:16] LABS: ALBUMIN 2.3 g/dl (3.4-5.0); BILIRUBIN,TOTAL 0.5 mg/dL (0.2-1); BLOOD UREA NITROGEN 20.3 mg/dL (7-18); CALCIUM 8.6 mg/dL (8.5-10.1); POTASSIUM 3.9 mmol/L (3.5-5.1); TOT PROT 5.6 g/dl (6.4-8.2)
[2019-05-25 09:37] LABS: ANISOCYTOSIS 1+; MACROCYTOSIS 0; PLATELET ESTIMATE NORMAL
--- NOTE | 2019-05-25 12:13 | PN ---
Progress Note (short form) - Note Progress Note: pt seen/ examined chart reviewed awake/ comfortable afebrile. unable to walk yet Vital Signs Temp 98.5 F 05/25/19 09:59 Pulse 69 05/25/19 09:59 Resp 18 05/25/19 09:59 BP 124/56 L 05/25/19 09:59 Pulse Ox 99 05/24/19 21:00 Intake & Output 05/24/19 05/25/19 05/25/19 23:59 11:59 23:59 Output Total 300 300 Balance -300 -300 Output: Urine 300 300 Void 300 300 Other: Voiding Method Urinal Bowel Movement No Yes # Bowel Movements 2 1 Active Medications Acetaminophen (Tylenol -) 650 mg PO Q6H PRN PRN Reason: PAIN LEVEL 3-6 Last Admin: 05/23/19 17:43 Dose: 650 mg Diphenhydramine HCl (Benadryl Injection -) 12.5 mg IVPUSH ONCE PRN PRN Reason: FOR ITCHING Fentanyl (Sublimaze Injection -) 50 mcg IVPUSH [id number] PRN PRN Reason: PAIN-PACU ORDER X 4 DOSES ONLY Last Admin: 05/15/19 14:40 Dose: 50 mcg Sodium Chloride (1/2 Normal Saline) 1,000 mls @ 83 mls/hr IV ASDIR [facility] Last Admin: 05/24/19 23:32 Dose: Not Given Levothyroxine Sodium (Synthroid -) 125 mcg PO DAILY@0700 [facility] Last Admin: 05/25/19 06:33 Dose: 125 mcg Metoprolol Succinate (Toprol Xl -) 50 mg PO DAILY [facility] Last Admin: 05/25/19 10:03 Dose: 50 mg Ondansetron HCl (Zofran Injection) 4 mg IVPUSH Q6H PRN PRN Reason: NAUSEA AND/OR VOMITING Last Admin: 05/19/19 06:26 Dose: 4 mg Promethazine HCl (Phenergan Injection -) 12.5 mg IVPB Q6H PRN PRN Reason: NAUSEA AND/OR VOMITING Last Admin: 05/20/19 18:33 Dose: 12.5 mg CBC, BMP 05/25/19 07:07 05/25/19 06:00 Microbiology 05/20/19 22:30 Blood Culture - Preliminary Blood - Peripheral Venous NO GROWTH OBTAINED AFTER 96 HOURS, INCUBATION TO CONTINUE FOR 1 DAYS. 05/20/19 22:30 Blood Culture - Preliminary Blood - Peripheral Venous NO GROWTH OBTAINED AFTER 96 HOURS, INCUBATION TO CONTINUE FOR 1 DAYS. 05/20/19 17:00 Gram Stain - Final Synovial Fluid - Knee Body Fluid Culture - Final NO GROWTH OF AEROBIC ORGANISMS AFTER 48 HOURS INCUBATION Anaerobic Culture - Final NO ANAEROBES WERE ISOLATED Physical exam Awake/ comfortable S1 S2 RRR Lungs decreased crackles ABd- soft, NT, bs + trace edema tender B/l knees-->R> Left ext- no edema A/P surgically stable I believe unable to walk due to knee pain issues-- gouty arthritis cant give colchicine/ steroids and also nsaids concern may need right knee steroid injection Rheumatology to follow will follow D/W Rn also
--- NOTE | 2019-05-25 14:39 | PN ---
Progress Note, Physician History of Present Illness: Pt seen and examined at bedside. He is awake and alert. He is tolerating diet. - Current Medication List Current Medications: Active Medications Acetaminophen (Tylenol -) 650 mg PO Q6H PRN PRN Reason: PAIN LEVEL 3-6 Last Admin: 05/23/19 17:43 Dose: 650 mg Diphenhydramine HCl (Benadryl Injection -) 12.5 mg IVPUSH ONCE PRN PRN Reason: FOR ITCHING Fentanyl (Sublimaze Injection -) 50 mcg IVPUSH [id number] PRN PRN Reason: PAIN-PACU ORDER X 4 DOSES ONLY Last Admin: 05/15/19 14:40 Dose: 50 mcg Sodium Chloride (1/2 Normal Saline) 1,000 mls @ 83 mls/hr IV ASDIR [facility] Last Admin: 05/24/19 23:32 Dose: Not Given Levothyroxine Sodium (Synthroid -) 125 mcg PO DAILY@0700 [facility] Last Admin: 05/25/19 06:33 Dose: 125 mcg Metoprolol Succinate (Toprol Xl -) 50 mg PO DAILY [facility] Last Admin: 05/25/19 10:03 Dose: 50 mg Ondansetron HCl (Zofran Injection) 4 mg IVPUSH Q6H PRN PRN Reason: NAUSEA AND/OR VOMITING Last Admin: 05/19/19 06:26 Dose: 4 mg Promethazine HCl (Phenergan Injection -) 12.5 mg IVPB Q6H PRN PRN Reason: NAUSEA AND/OR VOMITING Last Admin: 05/20/19 18:33 Dose: 12.5 mg - Objective Vital Signs: Vital Signs Temperature 98.5 F 05/25/19 09:59 Pulse Rate 69 05/25/19 09:59 Respiratory Rate 18 05/25/19 09:59 Blood Pressure 124/56 L 05/25/19 09:59 O2 Sat by Pulse Oximetry (%) 99 05/24/19 21:00 Constitutional: Yes: Calm Eyes: Yes: Conjunctiva Clear HENT: Yes: Atraumatic Neck: Yes: Supple Cardiovascular: Yes: S1, S2 Respiratory: Yes: CTA Bilaterally Gastrointestinal: Yes: Soft Genitourinary: Yes: WNL Musculoskeletal: Yes: WNL Edema: No Neurological: Yes: Oriented Psychiatric: Yes: Oriented Labs: CBC, BMP 05/25/19 07:07 05/25/19 06:00 Problem List - Problems (1) DOMINIQUE (acute kidney injury) Code(s): N17.9 - ACUTE KIDNEY FAILURE, UNSPECIFIED (2) HTN (hypertension) Code(s): I10 - ESSENTIAL (PRIMARY) HYPERTENSION (3) Hyperlipidemia Code(s): E78.5 - HYPERLIPIDEMIA, UNSPECIFIED Assessment/Plan Current Medications Generic Name Dose Route Start Last Admin Trade Name Freq PRN Reason Stop Dose Admin Acetaminophen 650 mg 05/23/19 16:00 05/23/19 17:43 Tylenol - PO 650 mg Q6H PRN Administration PAIN LEVEL 3-6 Diphenhydramine HCl 12.5 mg 05/15/19 14:58 Benadryl Injection - IVPUSH ONCE PRN FOR ITCHING Fentanyl 50 mcg 05/15/19 14:24 05/15/19 14:40 Sublimaze Injection - IVPUSH 50 mcg [id number] PRN Administration PAIN-PACU ORDER X 4 DOSES ONLY Sodium Chloride 1,000 mls @ 83 mls/hr 05/19/19 12:00 05/24/19 23:32 1/2 Normal Saline IV Not Given ASDIR [facility] Levothyroxine Sodium 125 mcg 05/17/19 09:15 05/25/19 06:33 Synthroid - PO 125 mcg DAILY@0700 [facility] Administration Metoprolol Succinate 50 mg 05/17/19 10:00 05/25/19 10:03 Toprol Xl - PO 50 mg DAILY [facility] Administration Ondansetron HCl 4 mg 05/15/19 14:24 05/19/19 06:26 Zofran Injection IVPUSH 4 mg Q6H PRN Administration NAUSEA AND/OR VOMITING Promethazine HCl 12.5 mg 05/15/19 14:58 05/20/19 18:33 Phenergan Injection - IVPB 12.5 mg Q6H PRN Administration NAUSEA AND/OR VOMITING Impression 1. DOMINIQUE 2. SBO 3. colon adenoca 4. s/p hemicolectomy 5. HTN 6. a-fib Plan - renal function stable - pt tolerating diet - stable off of fluids - DOMINIQUE likely from pre-renal disease - avoid nsaids - will follow PRN
--- NOTE | 2019-05-25 18:16 | PN ---
Progress Note, Physician - Current Medication List Current Medications: Active Medications Acetaminophen (Tylenol -) 650 mg PO Q6H PRN PRN Reason: PAIN LEVEL 3-6 Last Admin: 05/23/19 17:43 Dose: 650 mg Diphenhydramine HCl (Benadryl Injection -) 12.5 mg IVPUSH ONCE PRN PRN Reason: FOR ITCHING Fentanyl (Sublimaze Injection -) 50 mcg IVPUSH [id number] PRN PRN Reason: PAIN-PACU ORDER X 4 DOSES ONLY Last Admin: 05/15/19 14:40 Dose: 50 mcg Sodium Chloride (1/2 Normal Saline) 1,000 mls @ 83 mls/hr IV ASDIR [facility] Last Admin: 05/24/19 23:32 Dose: Not Given Levothyroxine Sodium (Synthroid -) 125 mcg PO DAILY@0700 [facility] Last Admin: 05/25/19 06:33 Dose: 125 mcg Metoprolol Succinate (Toprol Xl -) 50 mg PO DAILY [facility] Last Admin: 05/25/19 10:03 Dose: 50 mg Ondansetron HCl (Zofran Injection) 4 mg IVPUSH Q6H PRN PRN Reason: NAUSEA AND/OR VOMITING Last Admin: 05/19/19 06:26 Dose: 4 mg Promethazine HCl (Phenergan Injection -) 12.5 mg IVPB Q6H PRN PRN Reason: NAUSEA AND/OR VOMITING Last Admin: 05/20/19 18:33 Dose: 12.5 mg - Objective Vital Signs: Vital Signs Temperature 98.1 F 05/25/19 14:00 Pulse Rate 66 05/25/19 14:00 Respiratory Rate 18 05/25/19 14:00 Blood Pressure 113/69 05/25/19 14:00 O2 Sat by Pulse Oximetry (%) 99 05/24/19 21:00 Labs: CBC, BMP 05/25/19 07:07 05/25/19 06:00 Assessment/Plan Surgery Patient is alert , tolerating oral feeding Having bowel movements. Wound is healing well. Unable to walk. PT on board. Pathology pending. As per surgical issue , he is able to go home, however he is not able ty\o ambulate.
[2019-05-26] MEDS: LEVOTHYROXINE NA 125 MCG TABLET (FP) PO SCH (06:30)
--- NOTE | 2019-05-26 09:42 | PN ---
Progress Note, Physician - Current Medication List Current Medications: Active Medications Acetaminophen (Tylenol -) 650 mg PO Q6H PRN PRN Reason: PAIN LEVEL 3-6 Last Admin: 05/23/19 17:43 Dose: 650 mg Diphenhydramine HCl (Benadryl Injection -) 12.5 mg IVPUSH ONCE PRN PRN Reason: FOR ITCHING Fentanyl (Sublimaze Injection -) 50 mcg IVPUSH [id number] PRN PRN Reason: PAIN-PACU ORDER X 4 DOSES ONLY Last Admin: 05/15/19 14:40 Dose: 50 mcg Sodium Chloride (1/2 Normal Saline) 1,000 mls @ 83 mls/hr IV ASDIR [facility] Last Admin: 05/24/19 23:32 Dose: Not Given Levothyroxine Sodium (Synthroid -) 125 mcg PO DAILY@0700 [facility] Last Admin: 05/26/19 06:30 Dose: 125 mcg Metoprolol Succinate (Toprol Xl -) 50 mg PO DAILY [facility] Last Admin: 05/25/19 10:03 Dose: 50 mg Ondansetron HCl (Zofran Injection) 4 mg IVPUSH Q6H PRN PRN Reason: NAUSEA AND/OR VOMITING Last Admin: 05/19/19 06:26 Dose: 4 mg Promethazine HCl (Phenergan Injection -) 12.5 mg IVPB Q6H PRN PRN Reason: NAUSEA AND/OR VOMITING Last Admin: 05/20/19 18:33 Dose: 12.5 mg - Objective Vital Signs: Vital Signs Temperature 99.1 F 05/26/19 06:00 Pulse Rate 67 05/26/19 06:00 Respiratory Rate 20 05/26/19 06:00 Blood Pressure 115/71 05/26/19 06:00 O2 Sat by Pulse Oximetry (%) 95 05/25/19 21:00 Labs: CBC, BMP 05/25/19 07:07 05/25/19 06:00 Assessment/Plan Surgery ; He is tolerating diet , and having normal bowel movements. 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 Seventeen lymph nodes examined . Patient is explained of the pathology. He is still unable to walk. Orthopedic findings noted, no fractures, no acute events. Arthritis both knees. Receiving PT.
--- NOTE | 2019-05-26 11:56 | PN ---
Progress Note (short form) - Note Progress Note: afebrile pt still has difficulty ambulating But he wants go home-- does not want rehab unable to get OOB by himself Vital Signs - 24 hr 05/25/19 05/25/19 05/25/19 14:00 18:00 21:00 Temperature 98.1 F 98.6 F Pulse Rate 66 74 Respiratory 18 18 Rate Blood Pressure 113/69 107/38 L O2 Sat by Pulse 95 Oximetry (%) 05/25/19 05/26/19 22:00 06:00 Temperature 98.7 F 99.1 F Pulse Rate 81 67 Respiratory 18 20 Rate Blood Pressure 112/72 115/71 O2 Sat by Pulse Oximetry (%) Current Medications Generic Name Dose Route Start Last Admin Trade Name Freq PRN Reason Stop Dose Admin Acetaminophen 650 mg 05/23/19 16:00 05/23/19 17:43 Tylenol - PO 650 mg Q6H PRN Administration PAIN LEVEL 3-6 Diphenhydramine HCl 12.5 mg 05/15/19 14:58 Benadryl Injection - IVPUSH ONCE PRN FOR ITCHING Fentanyl 50 mcg 05/15/19 14:24 05/15/19 14:40 Sublimaze Injection - IVPUSH 50 mcg [id number] PRN Administration PAIN-PACU ORDER X 4 DOSES ONLY Sodium Chloride 1,000 mls @ 83 mls/hr 05/19/19 12:00 05/24/19 23:32 1/2 Normal Saline IV Not Given ASDIR [facility] Levothyroxine Sodium 125 mcg 05/17/19 09:15 05/26/19 06:30 Synthroid - PO 125 mcg DAILY@0700 [facility] Administration Metoprolol Succinate 50 mg 05/17/19 10:00 05/26/19 10:02 Toprol Xl - PO 50 mg DAILY [facility] Administration Ondansetron HCl 4 mg 05/15/19 14:24 05/19/19 06:26 Zofran Injection IVPUSH 4 mg Q6H PRN Administration NAUSEA AND/OR VOMITING Promethazine HCl 12.5 mg 05/15/19 14:58 05/20/19 18:33 Phenergan Injection - IVPB 12.5 mg Q6H PRN Administration NAUSEA AND/OR VOMITING S1 S2 RRR Lungs decreased crackles ABd- soft, NT, distended,no BS trace edema tender B/l knees-->less today restricted movements of B/l legs, B/L knees unable to flex hip joints able to flex knees but with pain no sensory deficits PLAN s/p hemicolectomy, BSO --advance to full liquid diet -- CXR -- no infiltrates Elevated temp-- --CBC --wbc trending down -- ID eval noted --cultures negative -- dc antibiotics -- likely due to acute gout --acute gout-->urate crystals on tap weakness of legs -- EMG noted -- MRI done-- results noted -- continue PT -- start prednisone taper for acute gout Acute renal failure -- on iv fluids -- azotemia improved DVT prophylaxis-- Heparin sc rheumatology eval noted, he should get intra-articular steroid injection pt does not want to go to Rehab-- he is a safety risk-- better for him to go rehab Does not have family in [place] Problem List - Problems (1) Colonic mass Code(s): K63.89 - OTHER SPECIFIED DISEASES OF INTESTINE (2) Status post right hemicolectomy Code(s): Z90.49 - ACQUIRED ABSENCE OF OTHER SPECIFIED PARTS OF DIGESTIVE TRACT (3) HTN (hypertension) Code(s): I10 - ESSENTIAL (PRIMARY) HYPERTENSION (4) Hypothyroidism Code(s): E03.9 - HYPOTHYROIDISM, UNSPECIFIED (5) Hyperlipidemia Code(s): E78.5 - HYPERLIPIDEMIA, UNSPECIFIED
[2019-05-26] MEDS ORDERED: predniSONE 20 MG TABLET (UD) PO ONE (12:51)
--- NOTE | 2019-05-26 16:25 | PN ---
Progress Note, Physician History of Present Illness: Pt seen and examined. He is tolerating diet. He denies shortness of breath. - Current Medication List Current Medications: Active Medications Acetaminophen (Tylenol -) 650 mg PO Q6H PRN PRN Reason: PAIN LEVEL 3-6 Last Admin: 05/23/19 17:43 Dose: 650 mg Diphenhydramine HCl (Benadryl Injection -) 12.5 mg IVPUSH ONCE PRN PRN Reason: FOR ITCHING Fentanyl (Sublimaze Injection -) 50 mcg IVPUSH [id number] PRN PRN Reason: PAIN-PACU ORDER X 4 DOSES ONLY Last Admin: 05/15/19 14:40 Dose: 50 mcg Sodium Chloride (1/2 Normal Saline) 1,000 mls @ 83 mls/hr IV ASDIR [facility] Last Admin: 05/24/19 23:32 Dose: Not Given Levothyroxine Sodium (Synthroid -) 125 mcg PO DAILY@0700 [facility] Last Admin: 05/26/19 06:30 Dose: 125 mcg Metoprolol Succinate (Toprol Xl -) 50 mg PO DAILY [facility] Last Admin: 05/26/19 10:02 Dose: 50 mg Ondansetron HCl (Zofran Injection) 4 mg IVPUSH Q6H PRN PRN Reason: NAUSEA AND/OR VOMITING Last Admin: 05/19/19 06:26 Dose: 4 mg Promethazine HCl (Phenergan Injection -) 12.5 mg IVPB Q6H PRN PRN Reason: NAUSEA AND/OR VOMITING Last Admin: 05/20/19 18:33 Dose: 12.5 mg - Objective Vital Signs: Vital Signs Temperature 99.1 F 05/26/19 06:00 Pulse Rate 67 05/26/19 06:00 Respiratory Rate 20 05/26/19 06:00 Blood Pressure 115/71 05/26/19 06:00 O2 Sat by Pulse Oximetry (%) 95 05/25/19 21:00 Constitutional: Yes: Calm Eyes: Yes: Conjunctiva Clear HENT: Yes: Atraumatic Neck: Yes: Supple Cardiovascular: Yes: S1, S2 Respiratory: Yes: CTA Bilaterally Gastrointestinal: Yes: Soft Genitourinary: Yes: WNL Musculoskeletal: Yes: WNL Edema: No Neurological: Yes: Oriented Psychiatric: Yes: Oriented Labs: CBC, BMP 05/25/19 07:07 05/25/19 06:00 Problem List - Problems (1) DOMINIQUE (acute kidney injury) Code(s): N17.9 - ACUTE KIDNEY FAILURE, UNSPECIFIED (2) HTN (hypertension) Code(s): I10 - ESSENTIAL (PRIMARY) HYPERTENSION (3) Hyperlipidemia Code(s): E78.5 - HYPERLIPIDEMIA, UNSPECIFIED Assessment/Plan Current Medications Generic Name Dose Route Start Last Admin Trade Name Freq PRN Reason Stop Dose Admin Acetaminophen 650 mg 05/23/19 16:00 05/23/19 17:43 Tylenol - PO 650 mg Q6H PRN Administration PAIN LEVEL 3-6 Diphenhydramine HCl 12.5 mg 05/15/19 14:58 Benadryl Injection - IVPUSH ONCE PRN FOR ITCHING Fentanyl 50 mcg 05/15/19 14:24 05/15/19 14:40 Sublimaze Injection - IVPUSH 50 mcg [id number] PRN Administration PAIN-PACU ORDER X 4 DOSES ONLY Sodium Chloride 1,000 mls @ 83 mls/hr 05/19/19 12:00 05/24/19 23:32 1/2 Normal Saline IV Not Given ASDIR [facility] Levothyroxine Sodium 125 mcg 05/17/19 09:15 05/26/19 06:30 Synthroid - PO 125 mcg DAILY@0700 [facility] Administration Metoprolol Succinate 50 mg 05/17/19 10:00 05/26/19 10:02 Toprol Xl - PO 50 mg DAILY [facility] Administration Ondansetron HCl 4 mg 05/15/19 14:24 05/19/19 06:26 Zofran Injection IVPUSH 4 mg Q6H PRN Administration NAUSEA AND/OR VOMITING Promethazine HCl 12.5 mg 05/15/19 14:58 05/20/19 18:33 Phenergan Injection - IVPB 12.5 mg Q6H PRN Administration NAUSEA AND/OR VOMITING Impression 1. DOMINIQUE 2. SBO 3. colon adenoca 4. s/p hemicolectomy 5. HTN 6. a-fib Plan - will stop fluids - pt tolerating diet - renal function had stabilized - can repeat labs tomorrow - surgery follow up - DOMINIQUE likely from pre-renal disease - avoid nsaids
[2019-05-27] MEDS: LEVOTHYROXINE NA 125 MCG TABLET (FP) PO SCH (06:13)
[2019-05-27 08:35] LABS: BLOOD UREA NITROGEN 17.1 mg/dL (7-18); CALCIUM 8.8 mg/dL (8.5-10.1); POTASSIUM 4.2 mmol/L (3.5-5.1)
[2019-05-27] MEDS ORDERED: predniSONE 20 MG TABLET (UD) PO ONE (11:45)
--- NOTE | 2019-05-27 11:56 | DS ---
Physical Examination Vital Signs: Vital Signs Temperature 98.4 F 05/27/19 06:00 Pulse Rate 65 05/27/19 06:00 Respiratory Rate 20 05/27/19 06:00 Blood Pressure 123/72 05/27/19 06:00 O2 Sat by Pulse Oximetry (%) 99 05/26/19 17:29 Constitutional: Yes: No Distress, Calm Cardiovascular: Yes: Regular Rate and Rhythm Respiratory: Yes: CTA Bilaterally Gastrointestinal: Yes: Normal Bowel Sounds, Soft. No: Distention, Tenderness Musculoskeletal: Yes: Muscle Weakness (proximal muscle weakness) Extremities: Yes: Other (warm knees, tender right knee) Edema: No Labs: CBC, BMP 05/25/19 07:07 05/27/19 07:26 Discharge Summary Reason For Visit: TUMOR RIGHT COLON Current Active Problems DOMINIQUE (acute kidney injury) (Acute) Bilateral knee effusions (Acute) Colonic mass (Acute) Gout (Acute) HTN (hypertension) (Acute) Hyperlipidemia (Acute) Hypothyroidism (Acute) Postoperative fever (Acute) SBO (small bowel obstruction) (Acute) Status post right hemicolectomy (Acute) Hospital Course: tubulovillous adenoma with high grade dysplasia 68 yrs old male admitted for surgical removal of mass in colon-- he underwent -- >by Dr Kilpatrick - Note: Operative Date: 05/15/19 Pre-Operative Diagnosis: Tumor in ascending colon. Operation: Laparoscopic assisted right hemicolectomy. Findings: Inked area in ascending colon. post operatively developed fever, elevated WBC, renal failure and proximal muscle weakness ID, Renal , Neurology and Rheumatology was consulted He had arthrocentesis of left knee by rheumatology-- acute gout MRI LS spine-- >no significant pathology, DJD EMG mild neuropathy Pt is tolerating diet and having regular bowel movements Antibiotics discontinued-- all cultures negative Fever and elevated WBC may be due to acute gout Pt received PO prednisone, getting better - he will be on tapering prednisone Renal function is normal Pt is stable for discharge to rehab as he is not safe to go home-- he lives alone and needs assist of one. Now walks with a walker Condition: Improved - Instructions Disposition: [facility] - Home Medications Comprehensive Discharge Medication List: Ambulatory Orders Amlodipine Besylate [Norvasc -] 10 mg PO DAILY 10/06/12 Levothyroxine [Synthroid -] 125 mcg PO DAILY 10/06/12 Metoprolol Succinate [Toprol XL -] 50 mg PO DAILY 10/06/12 Hydrochlorothiazide [Hctz -] 25 mg PO DAILY 05/14/19 Losartan Potassium 100 mg PO DAILY 05/15/19
--- NOTE | 2019-05-27 12:55 | PN ---
Progress Note, Physician History of Present Illness: Pt seen and examined. He is going home today. He is tolerating diet. - Current Medication List Current Medications: Active Medications Acetaminophen (Tylenol -) 650 mg PO Q6H PRN PRN Reason: PAIN LEVEL 3-6 Last Admin: 05/23/19 17:43 Dose: 650 mg Diphenhydramine HCl (Benadryl Injection -) 12.5 mg IVPUSH ONCE PRN PRN Reason: FOR ITCHING Fentanyl (Sublimaze Injection -) 50 mcg IVPUSH [id number] PRN PRN Reason: PAIN-PACU ORDER X 4 DOSES ONLY Last Admin: 05/15/19 14:40 Dose: 50 mcg Levothyroxine Sodium (Synthroid -) 125 mcg PO DAILY@0700 [facility] Last Admin: 05/27/19 06:13 Dose: 125 mcg Metoprolol Succinate (Toprol Xl -) 50 mg PO DAILY [facility] Last Admin: 05/27/19 10:17 Dose: 50 mg Ondansetron HCl (Zofran Injection) 4 mg IVPUSH Q6H PRN PRN Reason: NAUSEA AND/OR VOMITING Last Admin: 05/19/19 06:26 Dose: 4 mg Promethazine HCl (Phenergan Injection -) 12.5 mg IVPB Q6H PRN PRN Reason: NAUSEA AND/OR VOMITING Last Admin: 05/20/19 18:33 Dose: 12.5 mg - Objective Vital Signs: Vital Signs Temperature 98.4 F 05/27/19 06:00 Pulse Rate 65 05/27/19 06:00 Respiratory Rate 20 05/27/19 06:00 Blood Pressure 123/72 05/27/19 06:00 O2 Sat by Pulse Oximetry (%) 99 05/26/19 17:29 Constitutional: Yes: Calm Eyes: Yes: Conjunctiva Clear Cardiovascular: Yes: S1, S2 Respiratory: Yes: CTA Bilaterally Gastrointestinal: Yes: Soft Musculoskeletal: Yes: WNL Edema: No Neurological: Yes: Oriented Psychiatric: Yes: Oriented Labs: CBC, BMP 05/25/19 07:07 05/27/19 07:26 Problem List - Problems (1) DOMINIQUE (acute kidney injury) Code(s): N17.9 - ACUTE KIDNEY FAILURE, UNSPECIFIED (2) HTN (hypertension) Code(s): I10 - ESSENTIAL (PRIMARY) HYPERTENSION (3) Hyperlipidemia Code(s): E78.5 - HYPERLIPIDEMIA, UNSPECIFIED Assessment/Plan Current Medications Generic Name Dose Route Start Last Admin Trade Name Freq PRN Reason Stop Dose Admin Acetaminophen 650 mg 05/23/19 16:00 05/23/19 17:43 Tylenol - PO 650 mg Q6H PRN Administration PAIN LEVEL 3-6 Diphenhydramine HCl 12.5 mg 05/15/19 14:58 Benadryl Injection - IVPUSH ONCE PRN FOR ITCHING Fentanyl 50 mcg 05/15/19 14:24 05/15/19 14:40 Sublimaze Injection - IVPUSH 50 mcg [id number] PRN Administration PAIN-PACU ORDER X 4 DOSES ONLY Levothyroxine Sodium 125 mcg 05/17/19 09:15 05/27/19 06:13 Synthroid - PO 125 mcg DAILY@0700 [facility] Administration Metoprolol Succinate 50 mg 05/17/19 10:00 05/27/19 10:17 Toprol Xl - PO 50 mg DAILY [facility] Administration Ondansetron HCl 4 mg 05/15/19 14:24 05/19/19 06:26 Zofran Injection IVPUSH 4 mg Q6H PRN Administration NAUSEA AND/OR VOMITING Promethazine HCl 12.5 mg 05/15/19 14:58 05/20/19 18:33 Phenergan Injection - IVPB 12.5 mg Q6H PRN Administration NAUSEA AND/OR VOMITING Impression 1. DOMINIQUE 2. SBO 3. colon adenoca 4. s/p hemicolectomy 5. HTN 6. a-fib Plan - labs reviewed and are stable - pt tolerating diet - DOMINIQUE likely from pre-renal disease - avoid nsaids - abiodun follow PRN, thank you
[2019-05-28] MEDS: LEVOTHYROXINE NA 125 MCG TABLET (FP) PO SCH (06:07)
--- NOTE | 2019-05-28 13:27 | PN ---
Progress Note (short form) - Note Progress Note: afebrile pt still has difficulty ambulating awaiting insurance authorization Vital Signs - 24 hr 05/27/19 05/27/19 05/27/19 14:00 16:30 21:00 Temperature 98 F 98.4 F Pulse Rate 85 70 Respiratory 20 20 Rate Blood Pressure 119/73 135/75 O2 Sat by Pulse 96 Oximetry (%) 05/27/19 05/28/19 05/28/19 22:00 06:26 09:00 Temperature 99.1 F 98.6 F Pulse Rate 67 58 L Respiratory 18 20 20 Rate Blood Pressure 113/68 127/75 O2 Sat by Pulse 96 Oximetry (%) 05/28/19 10:00 Temperature 98 F Pulse Rate 68 Respiratory 20 Rate Blood Pressure 116/64 O2 Sat by Pulse Oximetry (%) Current Medications Generic Name Dose Route Start Last Admin Trade Name Freq PRN Reason Stop Dose Admin Acetaminophen 650 mg 05/23/19 16:00 05/23/19 17:43 Tylenol - PO 650 mg Q6H PRN Administration PAIN LEVEL 3-6 Diphenhydramine HCl 12.5 mg 05/15/19 14:58 Benadryl Injection - IVPUSH ONCE PRN FOR ITCHING Fentanyl 50 mcg 05/15/19 14:24 05/15/19 14:40 Sublimaze Injection - IVPUSH 50 mcg [id number] PRN Administration PAIN-PACU ORDER X 4 DOSES ONLY Levothyroxine Sodium 125 mcg 05/17/19 09:15 05/28/19 06:07 Synthroid - PO 125 mcg DAILY@0700 [facility] Administration Metoprolol Succinate 50 mg 05/17/19 10:00 05/28/19 10:27 Toprol Xl - PO 50 mg DAILY [facility] Administration Ondansetron HCl 4 mg 05/15/19 14:24 05/19/19 06:26 Zofran Injection IVPUSH 4 mg Q6H PRN Administration NAUSEA AND/OR VOMITING Promethazine HCl 12.5 mg 05/15/19 14:58 05/20/19 18:33 Phenergan Injection - IVPB 12.5 mg Q6H PRN Administration NAUSEA AND/OR VOMITING S1 S2 RRR Lungs decreased crackles ABd- soft, NT, distended,no BS trace edema tender B/l knees-->less today restricted movements of B/l legs, B/L knees unable to flex hip joints able to flex knees but with pain no sensory deficits PLAN s/p hemicolectomy, BSO --tolerating diet -- CXR -- no infiltrates Elevated temp-- --resolved -- likely due to acute gout --acute gout-->urate crystals on tap weakness of legs -- EMG noted -- MRI done-- results noted -- continue PT -- start prednisone taper for acute gout Acute renal failure -- dc iv fluids -- azotemia improved DVT prophylaxis-- Heparin sc awaiting dc plan-- s/w delinquency prevention social worker Problem List - Problems (1) Colonic mass Code(s): K63.89 - OTHER SPECIFIED DISEASES OF INTESTINE (2) Status post right hemicolectomy Code(s): Z90.49 - ACQUIRED ABSENCE OF OTHER SPECIFIED PARTS OF DIGESTIVE TRACT (3) HTN (hypertension) Code(s): I10 - ESSENTIAL (PRIMARY) HYPERTENSION (4) Hypothyroidism Code(s): E03.9 - HYPOTHYROIDISM, UNSPECIFIED (5) Hyperlipidemia Code(s): E78.5 - HYPERLIPIDEMIA, UNSPECIFIED
[2019-05-28] MEDS ORDERED: predniSONE 20 MG TABLET (UD) PO ONE (13:45)
[2019-05-28] MEDS ORDERED: predniSONE 10 MG TABLET (UD) PO ONE (13:45)
[2019-05-28 15:58] VITALS: BP 98/56; PULSE 92; TEMP 98.2
== END 2019-05-28 16:17 | disposition home or self-care (01) | DRG 330 ==
LOC: JSAMEDAYSX 07:09 → J8W 19:42
PROVIDERS: ADMIT Specialist; ATTEND Specialist
PROC: 0DTF4ZZ Resection of Right Large Intestine, Percutaneous Endoscopic Approach (ICD-10-PCS; principal; 2019-05-15 10:00)
PROC: 0S9D3ZX Drainage of Left Knee Joint, Percutaneous Approach, Diagnostic (ICD-10-PCS; 2019-05-20)
DX: D12.2 Benign neoplasm of ascending colon (principal); N17.9 Acute kidney failure, unspecified; K56.609 Unspecified intestinal obstruction, unspecified as to partial versus complete obstruction; J98.11 Atelectasis; K63.89 Other specified diseases of intestine; I10 Essential (primary) hypertension; E03.9 Hypothyroidism, unspecified; E78.5 Hyperlipidemia, unspecified; M25.462 Effusion, left knee; M25.461 Effusion, right knee; R50.82 Postprocedural fever; M10.9 Gout, unspecified; I48.91 Unspecified atrial fibrillation; N40.0 Benign prostatic hyperplasia without lower urinary tract symptoms; E66.9 Obesity, unspecified; Z68.32 Body mass index [BMI] 32.0-32.9, adult
CPT/HCPCS: 36415; 71045-TC-FY; 72146-TC; 72148-TC; 73560-TC-LT-FY; 73560-TC-RT-FY; 74018-TC-FY; 74019-TC-FY; 74021-TC-FY; 74176-TC; 76775-TC; 80048; 80053; 81003; 82436; 82550; 82553; 82565; 82607; 83036; 83735; 84100; 84133; 84300; 84425; 84443; 84550; 85025; 85027; 85651; 86038; 86850; 86900; 86901; 87040; 87070; 87075; 87086; 87205; 88305-TC; 88307-TC; 89051; 89060; 94010; 94760; 95860-TC; 97116-GP; 97162-GP; J0131; J1644; Q9967

== ENCOUNTER 2019-06-01 12:38 | Inpatient (IN) | payer OTHER ==
--- NOTE | 2019-06-01 12:41 | PDOC ---
Rapid Medical Evaluation Time Seen by Provider: 06/01/19 12:40 Medical Evaluation: Allergies Allergy/AdvReac Type Severity Reaction Status Date / Time No Known Drug Allergies Allergy Verified 05/15/19 08:16 06/01/19 12:40 I have performed a brief in-person evaluation of this patient. The patient presents with a chief complaint of: "signed myself out on " s/ p right hemicolectomy. per notes pt was awaiting social work consult as he needs to be in a SNF. patient denies any pain. Pertinent physical exam findings: well appearing I have ordered the following: nothing The patient will proceed to the ED for further evaluation. Discharge Disposition - Diagnosis Post-operative state - Referrals - Patient Instructions - Post Discharge Activity
--- NOTE | 2019-06-01 17:04 | PDOC ---
History of Present Illness - General Chief Complaint: Pain Stated Complaint: PAIN, s/o Hemicholectomy Time Seen by Provider: 06/01/19 12:40 History Source: Patient Exam Limitations: No Limitations - History of Present Illness Initial Comments: 06/01/19 16:13 68-year-old male status post hemicolectomy done earlier this month requiring him to stay for numerous days presents to ED with complaints of generalized weakness and inability to ambulate secondary to right lower extremity knee pain. Patient states was supposed to go to rehabilitation upon discharge from the hospital but had left and now requesting to return. Patient is followed by Dr. Olea who was aware of patient's arrival to the ED. Patient has no complaints of fever, chills, surgical pain, or worsening symptoms since discharge. Is this a multiple visit Asthma Patient?: No Timing/Duration: 1 week Severity: mild Associated Symptoms: reports: denies symptoms Past History - Travel Traveled outside of the country in the last 30 days: No Close contact w/someone who was outside of country & ill: No - Past Medical History Allergies/Adverse Reactions: Allergies Allergy/AdvReac Type Severity Reaction Status Date / Time No Known Drug Allergies Allergy Verified 06/01/19 12:45 Home Medications: Ambulatory Orders Amlodipine Besylate [Norvasc -] 10 mg PO DAILY 10/06/12 Levothyroxine [Synthroid -] 125 mcg PO DAILY 10/06/12 Metoprolol Succinate [Toprol XL -] 50 mg PO DAILY 10/06/12 predniSONE [Deltasone -] See Taper PO ASDIR #7 tab 05/27/19 Anemia: No Asthma: No Cancer: No Cardiac Disorders: Yes CVA: No COPD: No CHF: No Dementia: No Diabetes: No GI Disorders: No Disorders: No HTN: Yes Hypercholesterolemia: No Liver Disease: No Seizures: No Thyroid Disease: Yes - Surgical History Abdominal Surgery: Yes (Hemicholecomy) Appendectomy: No Cardiac Surgery: No Cholecystectomy: No Lung Surgery: No Orthopedic Surgery: No - Immunization History Immunization Up to Date: Yes - Psycho Social/Smoking Cessation Hx Smoking History: Never smoked Have you smoked in the past 12 months: No Information on smoking cessation initiated: No Hx Alcohol Use: No Drug/Substance Use Hx: No Substance Use Type: None Hx Substance Use Treatment: No Patient Lives Alone: No Lives with/in: brother Review of Systems - Review of Systems Able to Perform ROS?: Yes Is the patient limited Luxembourger proficient: No Constitutional: No: Symptoms Reported HEENTM: No: Symptoms Reported Respiratory: No: Symptoms reported Cardiac (ROS): No: Symptoms Reported ABD/GI: No: Symptoms Reported : No: Symptoms Reported Musculoskeletal: Yes: Joint Pain (right) Integumentary: No: Symptoms Reported Neurological: No: Symptoms reported Hematologic/Lymphatic: No: Symptoms Reported *Physical Exam - Vital Signs Last Vital Signs Temp Pulse Resp BP Pulse Ox 98.1 F 98 H 19 95/54 L 99 06/01/19 12:42 06/01/19 12:42 06/01/19 12:42 06/01/19 12:42 06/01/19 12:42 - Physical Exam General Appearance: Yes: Nourished, Appropriately Dressed. No: Apparent Distress HEENT: positive: EOMI, OMER. negative: Pale Conjunctivae Neck: positive: Supple Respiratory/Chest: positive: Lungs Clear, Normal Breath Sounds. negative: Respiratory Distress, Accessory Muscle Use Cardiovascular: positive: Regular Rhythm, Regular Rate. negative: Murmur Gastrointestinal/Abdominal: positive: Soft. negative: Tenderness Musculoskeletal: negative: CVA Tenderness Extremity: positive: Normal Capillary Refill. negative: Pedal Edema Integumentary: positive: Normal Color, Warm, Moist Neurologic: positive: Motor Strength 5/5 (ambulatory) Heart Score/ECG Review - ECG Intrepretation Rhythm: Regular Rhythm (rate 75, nsr, no st elevation/depression) ED Treatment Course - LABORATORY CBC & Chemistry Diagram: 06/03/19 06:05 06/03/19 06:05 Medical Decision Making - Medical Decision Making 06/01/19 16:06 CC: Patient requesting rehabilitation secondary to generalized weakness especially in his right lower extremity. Patient status post a hemo-colectomy requiring a lengthy admission but left and did not go to a intermediate facility for rehabilitation as recommended by staff including his primary care physician Dr. Olea. exam: Vital signs stable, in no acute distress Plan: Patient seen by primary care physician is recommending admission for the patient may go to rehabilitation for strengthening *DC/Admit/Observation/Transfer Diagnosis at time of Disposition: Post-operative state - Discharge Dispostion Decision to Admit order: Yes - Referrals - Patient Instructions - Post Discharge Activity Discharge - Discharge Information Problems reviewed: Yes Clinical Impression/Diagnosis: Post-operative state
[2019-06-01 21:53] LABS: BASO % 0.5 % (0-2.0); EOS % 2.2 % (0-4.5); HEMATOCRIT 36.5 % (35.4-49); HEMOGLOBIN 11.8 GM/dL (11.7-16.9); LYMPH % 19.5 % (8-40); MCH 27.4 pg (25.7-33.7); MCHC 32.5 g/dl (32.0-35.9); MEAN CELL VOLUME 84.3 fl (80-96); MEAN PLT VOLUME 7.5 fl (7.5-11.1); NEUT % 63.8 % (42.8-82.8); PLATELET COUNT 297 K/MM3 (134-434); RBC 4.32 M/mm3 (4.00-5.60); RDW 14.7 % (11.9-15.9); WHITE BLOOD COUNT 7.9 K/mm3 (4.0-10.0)
[2019-06-01 21:59] LABS: URINE APPEARANCE CLOUDY; URINE BILIRUBIN NEGATIVE (NEGATIVE); URINE COLOR YELLOW; URINE GLUCOSE (UA) NEGATIVE (NEGATIVE); URINE KETONE TRACE (NEGATIVE); URINE LEUK ESTERASE NEGATIVE (NEGATIVE); URINE NITRITE NEGATIVE (NEGATIVE); URINE PROTEIN TRACE (NEGATIVE)
[2019-06-01 22:21] LABS: ALBUMIN 2.9 g/dl (3.4-5.0); BILIRUBIN,TOTAL 0.4 mg/dL (0.2-1); BLOOD UREA NITROGEN 30.8 mg/dL (7-18); CALCIUM 9.4 mg/dL (8.5-10.1); CREATININE 2.4 mg/dL (0.55-1.3); MAGNESIUM 2.2 mg/dL (1.8-2.4); POTASSIUM 4.1 mmol/L (3.5-5.1); TOT PROT 6.8 g/dl (6.4-8.2)
--- NOTE | 2019-06-02 10:59 | EKG ---
Test Reason : Blood Pressure : / mmHG Vent. Rate : 075 BPM Atrial Rate : 075 BPM P-R Int : 166 ms QRS Dur : 074 ms QT Int : 410 ms P-R-T Axes : 053 022 011 degrees QTc Int : 457 ms POOR DATA QUALITY, INTERPRETATION MAY BE ADVERSELY AFFECTED NORMAL SINUS RHYTHM NORMAL ECG WHEN COMPARED WITH ECG OF 05-MAR-2016 06:59, T WAVE INVERSION NOW EVIDENT IN ANTERIOR LEADS Confirmed by Estevan Tijerina ([id number]) on 06/02/2019 10:59:36 AM Referred By: Confirmed By:Estevan Tijerina
--- NOTE | 2019-06-02 11:07 | HP ---
Admitting History and Physical - Primary Care Physician PCP: Laureen Olea - Admission Chief Complaint: weakness History of Present Illness: 68 yrs old male came here for weakness-- was recently discharged on 05/28/19-- had underwent 05/15/19 Laparoscopic assisted right hemicolectomy for tumor in ascending colon Pathology--> tubulovillous adenoma with high grade dysplasia Post op-- had weakness , acute gout- was discharged ultimately to his home as his insurance denied acute/subacute rehab Pt was unable to manage for himself at home- VNS did not come nor home PT. He is now walking with walker but unsteady He also could not slat pickler his discharge meds from pharmacy-- he was still taking his old BP meds-- diuretics and ABR which was discontinued in the previous admission as he had acute renal failure History Source: Patient Limitations to Obtaining History: No Limitations - Past Medical History Cardiovascular: Yes: AFIB (paroxysmal not on AC ), HTN, Hyperlipdemia Renal/: Yes: BPH - Past Surgical History Past Surgical History: Yes: Cataract Removal, TURP - Smoking History Smoking history: Never smoked Have you smoked in the past 12 months: No - Alcohol/Substance Use Hx Alcohol Use: No - Social History ADL: Independent Home Medications - Allergies Allergies/Adverse Reactions: Allergies Allergy/AdvReac Type Severity Reaction Status Date / Time No Known Drug Allergies Allergy Verified 06/01/19 12:45 - Home Medications Home Medications: Ambulatory Orders Amlodipine Besylate [Norvasc -] 10 mg PO DAILY 10/06/12 Levothyroxine [Synthroid -] 125 mcg PO DAILY 10/06/12 Metoprolol Succinate [Toprol XL -] 50 mg PO DAILY 10/06/12 predniSONE [Deltasone -] See Taper PO ASDIR #7 tab 05/27/19 Review of Systems - Review of Systems Constitutional: denies: Chills, Fever Physical Examination Vital Signs: Vital Signs Temperature 98.1 F 06/02/19 06:24 Pulse Rate 69 06/02/19 06:24 Respiratory Rate 16 06/02/19 06:24 Blood Pressure 96/60 06/02/19 06:24 O2 Sat by Pulse Oximetry (%) 100 06/02/19 06:24 Constitutional: Yes: No Distress, Calm Cardiovascular: Yes: Regular Rate and Rhythm Respiratory: Yes: CTA Bilaterally Gastrointestinal: Yes: Normal Bowel Sounds, Soft. No: Tenderness Edema: Yes Edema: LLE: 1+, RLE: 1+ Labs: CBC, BMP 06/01/19 21:32 06/01/19 21:32 Imaging - Results EKG: Image Reviewed (NSR) Problem List - Problems (1) Weakness Code(s): R53.1 - WEAKNESS (2) DOMINIQUE (acute kidney injury) Code(s): N17.9 - ACUTE KIDNEY FAILURE, UNSPECIFIED (3) Colonic mass Code(s): K63.89 - OTHER SPECIFIED DISEASES OF INTESTINE (4) HTN (hypertension) Code(s): I10 - ESSENTIAL (PRIMARY) HYPERTENSION Assessment/Plan PLAN -- iv fluids -- holding ARB/ACEI -- monitor renal function -- meds reviewed -- project crew worker -- PT eval -- heparin sc for DVT prophylaxis
[2019-06-02] MEDS: SODIUM CHLORIDE 0.45% 1,000 ML IV SCH (12:21)
[2019-06-02 17:43] VITALS: BMI 29.2
[2019-06-02] MEDS: HEPARIN NA (PORCINE) 5,000 UNITS/ML 1ML VIAL SQ SCH (21:59)
[2019-06-03] MEDS: LEVOTHYROXINE NA 125 MCG TABLET (FP) PO SCH (06:21)
[2019-06-03] MEDS: SODIUM CHLORIDE 0.45% 1,000 ML IV SCH ×2 (06:26→18:04)
[2019-06-03 08:12] LABS: BASO % 0.6 % (0-2.0); EOS % 3.9 % (0-4.5); HEMATOCRIT 34.4 % (35.4-49); HEMOGLOBIN 11.3 GM/dL (11.7-16.9); LYMPH % 25.7 % (8-40); MCH 27.4 pg (25.7-33.7); MCHC 32.8 g/dl (32.0-35.9); MEAN CELL VOLUME 83.7 fl (80-96); MEAN PLT VOLUME 7.8 fl (7.5-11.1); MONO % 13.1 % (3.8-10.2); NEUT % 56.7 % (42.8-82.8); PLATELET COUNT 242 K/MM3 (134-434); RBC 4.11 M/mm3 (4.00-5.60); RDW 14.3 % (11.9-15.9); WHITE BLOOD COUNT 6.2 K/mm3 (4.0-10.0)
[2019-06-03 08:17] LABS: ALBUMIN 2.7 g/dl (3.4-5.0); BILIRUBIN,TOTAL 0.4 mg/dL (0.2-1); BLOOD UREA NITROGEN 24.2 mg/dL (7-18); CREATININE 1.2 mg/dL (0.55-1.3); POTASSIUM 4.1 mmol/L (3.5-5.1); TOT PROT 6.3 g/dl (6.4-8.2)
[2019-06-03] MEDS: amLODIPine BESYLATE 10 MG TABLET (FP) PO SCH (10:56)
[2019-06-03] MEDS: HEPARIN NA (PORCINE) 5,000 UNITS/ML 1ML VIAL SQ SCH ×2 (10:56→21:32)
--- NOTE | 2019-06-03 11:39 | PN ---
Progress Note (short form) - Note Progress Note: ambulated to bathroom this AM no complaints Vital Signs - 24 hr 06/02/19 06/02/19 06/02/19 15:17 17:33 18:01 Temperature 99.2 F 97.9 F 97.9 F Pulse Rate 72 66 66 Respiratory 15 18 18 Rate Blood Pressure 112/68 119/67 119/67 06/02/19 06/03/19 22:00 06:31 Temperature 98 F 98.6 F Pulse Rate 70 83 Respiratory 18 20 Rate Blood Pressure 120/67 109/72 Current Medications Generic Name Dose Route Start Last Admin Trade Name See PRN Reason Stop Dose Admin Amlodipine Besylate 10 mg 06/03/19 10:00 06/03/19 10:56 Norvasc - PO 10 mg DAILY [facility] Administration Heparin Sodium (Porcine) 5,000 unit 06/02/19 22:00 06/03/19 10:56 Heparin - SQ 5,000 unit BID [facility] Administration Sodium Chloride 1,000 mls @ 83 mls/hr 06/02/19 11:15 06/03/19 06:26 1/2 Normal Saline IV 83 mls/hr ASDIR DOLORES Administration Levothyroxine Sodium 125 mcg 06/03/19 07:00 06/03/19 06:21 Synthroid - PO 125 mcg DAILY@0700 DOOLRES Administration Metoprolol Succinate 50 mg 06/03/19 10:00 06/03/19 10:56 Toprol Xl - PO 50 mg DAILY DOLORES Administration Laboratory Results - last 24 hr 06/03/19 06/03/19 06:05 06:05 WBC 6.2 RBC 4.11 Hgb 11.3 L Hct 34.4 L MCV 83.7 MCH 27.4 MCHC 32.8 RDW 14.3 Plt Count 242 MPV 7.8 Absolute Neuts (auto) 3.5 Neutrophils % 56.7 Lymphocytes % 25.7 D Monocytes % 13.1 H Eosinophils % 3.9 Basophils % 0.6 Nucleated RBC % 0 Sodium 137 Potassium 4.1 Chloride 105 Carbon Dioxide 24 Anion Gap 8 BUN 24.2 H Creatinine 1.2 Est GFR (CKD-EPI)AfAm 72.09 Est GFR (CKD-EPI)NonAf 62.20 Random Glucose 87 Calcium 9.0 Total Bilirubin 0.4 AST 15 ALT 25 Alkaline Phosphatase 72 Total Protein 6.3 L Albumin 2.7 L S1 S2 RRR \Lungs clear Abd-soft, NT edema decreased PLAN unfortunately insurance is denying rehab renal function better corrections caseworker will contact insurance if they have authorized home PT /VNS-- they should arrive to his apartment when he is dc from here Problem List - Problems (1) Weakness Problems reviewed: Yes Code(s): R53.1 - WEAKNESS (2) DOMINIQUE (acute kidney injury) Problems reviewed: Yes Code(s): N17.9 - ACUTE KIDNEY FAILURE, UNSPECIFIED (3) Colonic mass Problems reviewed: Yes Code(s): K63.89 - OTHER SPECIFIED DISEASES OF INTESTINE (4) HTN (hypertension) Problems reviewed: Yes Code(s): I10 - ESSENTIAL (PRIMARY) HYPERTENSION Qualifiers: Hypertension type: essential hypertension Qualified Code(s): I10 - Essential (primary) hypertension
[2019-06-04] MEDS: LEVOTHYROXINE NA 125 MCG TABLET (FP) PO SCH (06:39)
[2019-06-04] MEDS: amLODIPine BESYLATE 10 MG TABLET (FP) PO SCH (10:03)
[2019-06-04] MEDS: HEPARIN NA (PORCINE) 5,000 UNITS/ML 1ML VIAL SQ SCH ×2 (10:03→21:47)
--- NOTE | 2019-06-04 12:57 | PN ---
Progress Note (short form) - Note Progress Note: ambulated to bathroom this AM no complaints he is ambulating with PT using walker in the hallway Vital Signs - 24 hr 06/03/19 06/03/19 06/03/19 14:08 16:25 22:00 Temperature 99.2 F 99.1 F 98.9 F Pulse Rate 85 80 76 Respiratory 18 20 20 Rate Blood Pressure 129/68 123/70 122/70 O2 Sat by Pulse Oximetry (%) 06/04/19 06/04/19 06/04/19 00:13 06:00 10:00 Temperature 98.5 F 98.6 F Pulse Rate 86 95 H Respiratory 20 20 Rate Blood Pressure 123/73 121/77 O2 Sat by Pulse 99 Oximetry (%) Current Medications Generic Name Dose Route Start Last Admin Trade Name Freq PRN Reason Stop Dose Admin Amlodipine Besylate 10 mg 06/03/19 10:00 06/04/19 10:03 Norvasc - PO 10 mg DAILY [facility] Administration Heparin Sodium (Porcine) 5,000 unit 06/02/19 22:00 06/04/19 10:03 Heparin - SQ 5,000 unit BID [facility] Administration Levothyroxine Sodium 125 mcg 06/03/19 07:00 06/04/19 06:39 Synthroid - PO 125 mcg DAILY@0700 [facility] Administration Metoprolol Succinate 50 mg 06/03/19 10:00 06/04/19 10:03 Toprol Xl - PO 50 mg DAILY [facility] Administration S1 S2 RRR \Lungs clear Abd-soft, NT edema decreased PLAN renal function better dc iv fluids awaiting decision about safe discharge home or rehab medically he is stable continue with physical therapy here while he is here in hospital Problem List - Problems (1) Weakness Problems reviewed: Yes Code(s): R53.1 - WEAKNESS (2) DOMINIQUE (acute kidney injury) Problems reviewed: Yes Code(s): N17.9 - ACUTE KIDNEY FAILURE, UNSPECIFIED (3) Colonic mass Problems reviewed: Yes Code(s): K63.89 - OTHER SPECIFIED DISEASES OF INTESTINE (4) HTN (hypertension) Problems reviewed: Yes Code(s): I10 - ESSENTIAL (PRIMARY) HYPERTENSION Qualifiers: Hypertension type: essential hypertension Qualified Code(s): I10 - Essential (primary) hypertension
[2019-06-05] MEDS: LEVOTHYROXINE NA 125 MCG TABLET (FP) PO SCH (07:03)
[2019-06-05] MEDS: HEPARIN NA (PORCINE) 5,000 UNITS/ML 1ML VIAL SQ SCH ×2 (09:59→21:32)
[2019-06-05] MEDS: amLODIPine BESYLATE 10 MG TABLET (FP) PO SCH (10:00)
--- NOTE | 2019-06-05 12:44 | PN ---
Progress Note (short form) - Note Progress Note: pt seen/ examined chart reviewed awake/ comfortable Vital Signs Temp 98.2 F 06/05/19 10:00 Pulse 86 06/05/19 10:00 Resp 18 06/05/19 10:00 BP 133/76 06/05/19 10:00 Pulse Ox 99 06/05/19 09:00 Intake & Output 06/04/19 06/05/19 06/05/19 23:59 11:59 23:59 Intake Total 415 Balance 415 Intake: IV 415 1/2 Normal Saline 1,000 415 ml @ 83 mls/hr IV ASDIR [facility] Rx#:[id number] Other: Voiding Method Urinal # Unmeasured Voids Void 2 Bowel Movement No # Bowel Movements 1 Active Medications Amlodipine Besylate (Norvasc -) 10 mg PO DAILY [facility] Last Admin: 06/05/19 10:00 Dose: 10 mg Heparin Sodium (Porcine) (Heparin -) 5,000 unit SQ BID [facility] Last Admin: 06/05/19 09:59 Dose: 5,000 unit Levothyroxine Sodium (Synthroid -) 125 mcg PO DAILY@0700 [facility] Last Admin: 06/05/19 07:03 Dose: 125 mcg Metoprolol Succinate (Toprol Xl -) 50 mg PO DAILY [facility] Last Admin: 06/05/19 10:03 Dose: 50 mg CBC, BMP 06/03/19 06:05 06/03/19 06:05 Physical Exam S1 S2 RRR Lungs clear Abd-soft, NT edema decreased awake. PLAN Better renal function better off fluids awaiting decision about safe discharge home or rehab medically he is stable continue with physical therapy here while he is here in hospital Problem List - Problems (1) Weakness Problems reviewed: Yes Code(s): R53.1 - WEAKNESS (2) DOMINIQUE (acute kidney injury) Problems reviewed: Yes Code(s): N17.9 - ACUTE KIDNEY FAILURE, UNSPECIFIED (3) Colonic mass Problems reviewed: Yes Code(s): K63.89 - OTHER SPECIFIED DISEASES OF INTESTINE (4) HTN (hypertension) Problems reviewed: Yes Code(s): I10 - ESSENTIAL (PRIMARY) HYPERTENSION Qualifiers: Hypertension type: essential hypertension Qualified Code(s): I10 - Essential (primary) hypertension
--- NOTE | 2019-06-05 12:45 | DS ---
Physical Examination Vital Signs: Vital Signs Temperature 98.2 F 06/05/19 10:00 Pulse Rate 86 06/05/19 10:00 Respiratory Rate 18 06/05/19 10:00 Blood Pressure 133/76 06/05/19 10:00 O2 Sat by Pulse Oximetry (%) 99 06/05/19 09:00 Labs: CBC, BMP 06/03/19 06:05 06/03/19 06:05 Discharge Summary Reason For Visit: STATUS POST RIGHT HEMICOLECTOMY Current Active Problems Post-operative state (Acute) Weakness (Acute) - Instructions - Home Medications Comprehensive Discharge Medication List: Ambulatory Orders Amlodipine Besylate [Norvasc -] 10 mg PO DAILY 10/06/12 Levothyroxine [Synthroid -] 125 mcg PO DAILY 10/06/12 Metoprolol Succinate [Toprol XL -] 50 mg PO DAILY 10/06/12 predniSONE [Deltasone -] See Taper PO ASDIR #7 tab 05/27/19
[2019-06-06] MEDS ORDERED: ACETAMINOPHEN 325 MG TABLET (FP) PO ONE (02:09)
[2019-06-06] MEDS: LEVOTHYROXINE NA 125 MCG TABLET (FP) PO SCH (06:11)
[2019-06-06] MEDS: amLODIPine BESYLATE 10 MG TABLET (FP) PO SCH (09:20)
[2019-06-06] MEDS: HEPARIN NA (PORCINE) 5,000 UNITS/ML 1ML VIAL SQ SCH ×2 (09:20→21:45)
--- NOTE | 2019-06-06 11:16 | PN ---
Progress Note (short form) - Note Progress Note: has pain in knees-- right>left low grade fever Vital Signs - 24 hr 06/05/19 06/05/19 06/05/19 15:00 16:30 21:00 Temperature 100 F H 99.3 F Pulse Rate 85 91 H Respiratory 18 18 Rate Blood Pressure 109/70 121/76 O2 Sat by Pulse 99 Oximetry (%) 06/06/19 06/06/19 06/06/19 06:00 09:00 10:00 Temperature 99.1 F 98.6 F Pulse Rate 81 78 Respiratory 18 Rate Blood Pressure 104/65 110/76 O2 Sat by Pulse 97 Oximetry (%) Current Medications Generic Name Dose Route Start Last Admin Trade Name Freq PRN Reason Stop Dose Admin Acetaminophen 650 mg 06/06/19 11:00 Tylenol - PO Q6H PRN PAIN LEVEL 4-10 Allopurinol 300 mg 06/06/19 11:15 Zyloprim - PO DAILY [facility]OLOR[facility] Amlodipine Besylate 10 mg 06/03/19 10:00 06/06/19 09:20 Norvasc - PO 10 mg DAILY [facility] Administration Heparin Sodium (Porcine) 5,000 unit 06/02/19 22:00 06/06/19 09:20 Heparin - SQ 5,000 unit BID [facility]OLORES Administration Levothyroxine Sodium 125 mcg 06/03/19 07:00 06/06/19 06:11 Synthroid - PO 125 mcg DAILY@0700 [facility] Administration Metoprolol Succinate 50 mg 06/03/19 10:00 06/06/19 09:20 Toprol Xl - PO 50 mg DAILY [facility] Administration Prednisone 60 mg 06/06/19 11:14 Deltasone - PO 06/06/19 11:15 ONCE ONE S1 S2 RRR \Lungs clear Abd-soft, NT edema decreased both knees are tender and warm+ PLAN renal function better dc iv fluids pt is accepted to [facility]-- pending insurance approval start prednisone Start allopurinol Problem List - Problems (1) Weakness Code(s): R53.1 - WEAKNESS (2) DOMINIQUE (acute kidney injury) Code(s): N17.9 - ACUTE KIDNEY FAILURE, UNSPECIFIED (3) Colonic mass Code(s): K63.89 - OTHER SPECIFIED DISEASES OF INTESTINE (4) HTN (hypertension) Code(s): I10 - ESSENTIAL (PRIMARY) HYPERTENSION Qualifiers: Hypertension type: essential hypertension Qualified Code(s): I10 - Essential (primary) hypertension
[2019-06-06] MEDS ORDERED: predniSONE 20 MG TABLET (UD) PO ONE (11:30)
[2019-06-06] MEDS: ALLOPURINOL 300 MG TABLET (FP) PO SCH (12:44)
[2019-06-06] MEDS: ACETAMINOPHEN 325 MG TABLET (FP) PO PRN ×2 (12:45→21:47)
[2019-06-07] MEDS: LEVOTHYROXINE NA 125 MCG TABLET (FP) PO SCH (06:23)
[2019-06-07] MEDS: ALLOPURINOL 300 MG TABLET (FP) PO SCH (09:06)
[2019-06-07] MEDS: amLODIPine BESYLATE 10 MG TABLET (FP) PO SCH (09:06)
[2019-06-07] MEDS: HEPARIN NA (PORCINE) 5,000 UNITS/ML 1ML VIAL SQ SCH ×2 (09:07→21:28)
--- NOTE | 2019-06-07 10:39 | PN ---
Progress Note (short form) - Note Progress Note: has pain in knees-- right>left pain is better after receiving prednisone Vital Signs - 24 hr 06/06/19 06/07/19 06/07/19 22:00 06:00 09:00 Temperature 98.3 F 98.2 F Pulse Rate 68 73 Respiratory 20 Rate Blood Pressure 95/56 L 115/65 O2 Sat by Pulse 97 Oximetry (%) 06/07/19 06/07/19 06/07/19 10:00 15:00 17:15 Temperature 98.0 F 98.6 F 98.2 F Pulse Rate 74 84 68 Respiratory 20 20 20 Rate Blood Pressure 114/66 101/61 112/59 L O2 Sat by Pulse Oximetry (%) Current Medications Generic Name Dose Route Start Last Admin Trade Name Freq PRN Reason Stop Dose Admin Acetaminophen 650 mg 06/06/19 11:00 06/06/19 21:47 Tylenol - PO 650 mg Q6H PRN Administration PAIN LEVEL 4-10 Allopurinol 300 mg 06/06/19 11:30 06/07/19 09:06 Zyloprim - PO 300 mg DAILY DOLORES Administration Amlodipine Besylate 10 mg 06/03/19 10:00 06/07/19 09:06 Norvasc - PO 10 mg DAILY [facility] Administration Heparin Sodium (Porcine) 5,000 unit 06/02/19 22:00 06/07/19 09:07 Heparin - SQ 5,000 unit BID [facility] Administration Levothyroxine Sodium 125 mcg 06/03/19 07:00 06/07/19 06:23 Synthroid - PO 125 mcg DAILY@0700 [facility] Administration Metoprolol Succinate 50 mg 06/03/19 10:00 06/07/19 09:06 Toprol Xl - PO 50 mg DAILY [facility] Administration Prednisone 40 mg 06/07/19 10:45 06/07/19 11:26 Deltasone - PO 40 mg DAILY [facility] Administration S1 S2 RRR \Lungs clear Abd-soft, NT edema decreased both knees are tender and warm+ PLAN renal function better dc iv fluids pt is accepted to [facility]-- pending insurance approval on prednisone taper Problem List - Problems (1) Weakness Code(s): R53.1 - WEAKNESS (2) DOMINIQUE (acute kidney injury) Code(s): N17.9 - ACUTE KIDNEY FAILURE, UNSPECIFIED (3) Colonic mass Code(s): K63.89 - OTHER SPECIFIED DISEASES OF INTESTINE (4) HTN (hypertension) Code(s): I10 - ESSENTIAL (PRIMARY) HYPERTENSION Qualifiers: Hypertension type: essential hypertension Qualified Code(s): I10 - Essential (primary) hypertension
[2019-06-07] MEDS: predniSONE 20 MG TABLET (UD) PO SCH (11:26)
[2019-06-08] MEDS: LEVOTHYROXINE NA 125 MCG TABLET (FP) PO SCH (06:20)
[2019-06-08] MEDS ORDERED: PT OWN MED DRAWER 7, Y5N ONE (09:59)
[2019-06-08] MEDS: predniSONE 20 MG TABLET (UD) PO SCH (10:03)
[2019-06-08] MEDS: ALLOPURINOL 300 MG TABLET (FP) PO SCH (10:04)
[2019-06-08] MEDS: HEPARIN NA (PORCINE) 5,000 UNITS/ML 1ML VIAL SQ SCH ×2 (10:04→21:26)
[2019-06-08] MEDS: amLODIPine BESYLATE 10 MG TABLET (FP) PO SCH (10:04)
--- NOTE | 2019-06-08 13:08 | PN ---
Progress Note (short form) - Note Progress Note: pt seen/ examined chart reviewed awake/ comfortable Vital Signs Temp 98.4 F 06/08/19 10:00 Pulse 89 06/08/19 10:00 Resp 18 06/08/19 10:00 BP 123/59 L 06/08/19 10:00 Pulse Ox 97 06/08/19 09:00 Intake & Output 06/07/19 06/08/19 06/08/19 23:59 11:59 23:59 Intake Total 250 100 Balance 250 100 Intake: Oral 250 100 Other: Voiding Method Urinal # Unmeasured Voids Void 1 2 Bowel Movement Yes # Bowel Movements 1 Active Medications Acetaminophen (Tylenol -) 650 mg PO Q6H PRN PRN Reason: PAIN LEVEL 4-10 Last Admin: 06/06/19 21:47 Dose: 650 mg Allopurinol (Zyloprim -) 300 mg PO DAILY [facility] Last Admin: 06/08/19 10:04 Dose: 300 mg Amlodipine Besylate (Norvasc -) 10 mg PO DAILY [facility] Last Admin: 06/08/19 10:04 Dose: 10 mg Heparin Sodium (Porcine) (Heparin -) 5,000 unit SQ BID [facility] Last Admin: 06/08/19 10:04 Dose: 5,000 unit Levothyroxine Sodium (Synthroid -) 125 mcg PO DAILY@0700 [facility] Last Admin: 06/08/19 06:20 Dose: 125 mcg Metoprolol Succinate (Toprol Xl -) 50 mg PO DAILY [facility] Last Admin: 06/08/19 10:04 Dose: 50 mg Prednisone (Deltasone -) 40 mg PO DAILY [facility] Last Admin: 06/08/19 10:03 Dose: 40 mg CBC, BMP 06/03/19 06:05 06/03/19 06:05 Physical S1 S2 RRR Lungs clear Abd-soft, NT edema decreased both knees -- mild tenderness Neuro- Mild cognitive Impairment-- Baseline PLAN renal function better pt is accepted to [facility]-- pending insurance approval on prednisone taper walks with walker Refuses to go home will follow d/w Rn also Problem List - Problems (1) Weakness Code(s): R53.1 - WEAKNESS (2) DOMINIQUE (acute kidney injury) Code(s): N17.9 - ACUTE KIDNEY FAILURE, UNSPECIFIED (3) Colonic mass Code(s): K63.89 - OTHER SPECIFIED DISEASES OF INTESTINE (4) HTN (hypertension) Code(s): I10 - ESSENTIAL (PRIMARY) HYPERTENSION Qualifiers: Hypertension type: essential hypertension Qualified Code(s): I10 - Essential (primary) hypertension
[2019-06-09] MEDS: LEVOTHYROXINE NA 125 MCG TABLET (FP) PO SCH (06:15)
[2019-06-09] MEDS: ACETAMINOPHEN 325 MG TABLET (FP) PO PRN (09:31)
[2019-06-09] MEDS: amLODIPine BESYLATE 10 MG TABLET (FP) PO SCH (09:31)
[2019-06-09] MEDS: ALLOPURINOL 300 MG TABLET (FP) PO SCH (09:31)
[2019-06-09] MEDS: predniSONE 20 MG TABLET (UD) PO SCH (09:32)
[2019-06-09] MEDS: HEPARIN NA (PORCINE) 5,000 UNITS/ML 1ML VIAL SQ SCH (09:32)
--- NOTE | 2019-06-09 12:54 | DS ---
Physical Examination Vital Signs: Vital Signs Temperature 98.1 F 06/09/19 06:54 Pulse Rate 63 06/09/19 06:54 Respiratory Rate 20 06/09/19 06:54 Blood Pressure 107/69 06/09/19 06:54 O2 Sat by Pulse Oximetry (%) 97 06/08/19 21:00 Constitutional: Yes: No Distress, Calm Cardiovascular: Yes: Regular Rate and Rhythm Respiratory: Yes: CTA Bilaterally Gastrointestinal: Yes: Normal Bowel Sounds, Soft. 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
[2019-06-09 15:50] VITALS: BP 124/61; PULSE 83; TEMP 98
== END 2019-06-09 15:55 | disposition home or self-care (01) | DRG 948 ==
LOC: JER 12:38 → JERBED 17:11 → J8W 06-02 16:59
PROVIDERS: ADMIT Internal Medicine; ATTEND Internal Medicine
DX: R53.1 Weakness (principal); N17.9 Acute kidney failure, unspecified; K63.89 Other specified diseases of intestine; I10 Essential (primary) hypertension; M10.9 Gout, unspecified; M25.562 Pain in left knee; M25.561 Pain in right knee; N40.0 Benign prostatic hyperplasia without lower urinary tract symptoms; Z98.890 Other specified postprocedural states
CPT/HCPCS: 36415; 80053; 81003; 83735; 85025; 93005; 93010; 97116-GP; 97161-GP; 99284-25; J1644

== ENCOUNTER 2024-02-06 15:14 | Emergency (ER) | payer OTHER ==
[2024-02-06 15:32] VITALS: BP 144/55; PULSE 60; RESP 18; TEMP 98.6; BMI 24.1
[2024-02-06] MEDS ORDERED: DIPHTH,PERTUSS(ACELL),TET 0.5 ML DISP.SYRIN IM ONE (15:45)
[2024-02-06] MEDS: DIPHTH,PERTUSS(ACELL),TET 0.5 ML DISP.SYRIN IM ONE (15:48)
[2024-02-06] MEDS ORDERED: BACITRACIN ZINC 15 GM TUBE TOPICAL OINTMENT ONE (15:58)
== END 2024-02-06 16:24 | disposition home or self-care (01) ==
LOC: JERFT 15:14
PROC: 3E0234Z Introduction of Serum, Toxoid and Vaccine into Muscle, Percutaneous Approach (ICD-10-PCS; principal; 2024-02-06)
DX: S01.80XA Unspecified open wound of other part of head, initial encounter (principal); W01.190A Fall on same level from slipping, tripping and stumbling with subsequent striking against furniture, initial encounter; Y92.009 Unspecified place in unspecified non-institutional (private) residence as the place of occurrence of the external cause; Z23 Encounter for immunization
CPT/HCPCS: 90715; 99284-25